=== PATIENT | female | born 1995 | race Caucasian/White ===

== ENCOUNTER → 2016-08-15 | Outpatient (CLI) | payer BC, OTHER ==
[~2016-08-15] MED LIST: ENOXAPARIN 40 MG/0.4 ML SYRINGE SQ ONE; ceFAZolin 3 GM in SODIUM CHLORIDE 0.9% 100 ML IVPB ONE
[2016-08-15 14:40] VITALS: BP 143/86; PULSE 129; RESP 16; TEMP 98.2
--- NOTE | 2016-08-15 16:51 | P.HPBAR ---
Bariatric H&P - History & Physicial H&P Date: 08/15/16 History & Physicial: Visit/CC: Pre-surgical Patient initial contact: Initial weight: 195.186 kg Initial weight in pounds: 430.00 Height: 5 ft 6 in Initial BMI: 69.4 Last weight: Current weight: Current weight in pounds: Current BMI: [place] body weight (based on NIH guidelines): 58.967 kg Excess body weight loss: The patient is a 21 year-old F who presents for Bariatric Assessment. The patient presents for sleeve gastrectomy consultation. Her BMI is 59. She seems to have a good understanding of the sleeve gastrectomy. She is aware the risks benefits of the procedure. Past Medical History Past Medical History: No Reported History Additional Past Medical History / Comment(s): Takes Metformin BID, but states not diabetic. History of Any Multi-Drug Resistant Organisms: None Reported Past Surgical History: Cholecystectomy, Orthopedic Surgery Additional Past Surgical History / Comment(s): rt ankle/foot. Past Anesthesia/Blood Transfusion Reactions: No Reported Reaction Past Psychological History: Anxiety, Bipolar, Depression, Schizophrenia Smoking Status: Current every day smoker Past Alcohol Use History: None Reported Additional Past Alcohol Use History / Comment(s): Patient states down to half ppd. Started smoking at age 15 years of age. Past Drug Use History: None Reported - Past Family History Father Family Medical History: Hypertension Additional Family Medical History / Comment(s): Father is alive at age 57 with history of hypertension. Mother Family Medical History: Hypertension Additional Family Medical History / Comment(s): Mother is alive at age 53 with history of hypertension. Sister(s) Additional Family Medical History / Comment(s): Patient has 3 sisters with no major medical problems. Patient has 1 brother with no major medical problems. She does not have any children. Surgical - Exam Vital Signs Temp Pulse Resp BP 98.2 F 129 H 16 143/86 08/15/16 14:34 08/15/16 14:34 08/15/16 14:34 08/15/16 14:34 - General well developed - Eyes PERRL - ENT normal pinna - Neck no masses - Respiratory normal expansion - Cardiovascular Rhythm: regular - Abdomen Abdomen: soft, non tender Bariatric Assessment & Plan Plan: Morbid obesity with severe deformities. Patient will the authorized for sleeve gastrectomy. Bariatric Checklist Checklist: Plan: Checklist: EGD: 1. Hiatal hernia: 2. H. Pylori: HgbA1c: Vitamin D: Smoking: Current every day smoker Primary care physician referral: DR SPARKS Psychiatry clearance: Cardiology clearance: Sleep study: Diet journal: VTE risk score: VTE risk level: Rehab needs at discharge:
== END | disposition home or self-care (01) ==
LOC: BARWHC3 13:48
PROVIDERS: ATTEND Surgery
DX: Z01.818 Encounter for other preprocedural examination (principal); E66.01 Morbid (severe) obesity due to excess calories; Z79.899 Other long term (current) drug therapy; F17.200 Nicotine dependence, unspecified, uncomplicated; Q89.9 Congenital malformation, unspecified; Z68.43 Body mass index [BMI] 50.0-59.9, adult
CPT/HCPCS: 99211

== ENCOUNTER → 2016-08-22 | Outpatient (CLI) | payer BC, OTHER ==
[2016-08-22 14:50] VITALS: BMI 71.6
== END | disposition home or self-care (01) ==
LOC: BARWHC3 08:45
PROVIDERS: ATTEND Surgery
DX: Z71.3 Dietary counseling and surveillance (principal); E66.01 Morbid (severe) obesity due to excess calories; Z68.45 Body mass index [BMI] 70 or greater, adult

== ENCOUNTER → 2016-09-01 | Outpatient (CLI) | payer BC, OTHER ==
[2016-09-01 16:28] LABS: Basophils % (A) 0 %; CH 25.6; CHCM 31.5; Eosinophils # (A) 0.2 k/uL (0-0.7); Eosinophils % (A) 2 %; HCT 44.6 % (34.0-46.0); HDW 2.81; HGB 14.2 gm/dL (11.4-16.0); Hypochromasia Slight; Luc % (Auto) 2; Lymphocytes # (A) 2.6 k/uL (1.0-4.8); Lymphocytes % (A) 23 %; MCHC 31.9 g/dL (31.0-37.0); MCV 81.6 fL (80.0-100.0); Mean Platelet Volume 6.4; Monocytes # (A) 0.5 k/uL (0-1.0); Monocytes % (A) 4 %; Neutrophils % (A) 69 %; RBC 5.47 m/uL (3.80-5.40); RDW 14.4 % (11.5-15.5); WBC 11.6 k/uL (3.8-10.6)
[2016-09-01 16:53] LABS: ALT 36 U/L (9-52); AST 19 U/L (14-36); Alkaline Phosphatase 90 U/L (38-126); Anion Gap 11 mmol/L; Blood Urea Nitrogen 18 mg/dL (7-17); Calcium 9.6 mg/dL (8.4-10.2); Carbon Dioxide 28 mmol/L (22-30); Chloride 102 mmol/L (98-107); Glucose 95 mg/dL (74-99); Non-African American GFR(MDRD) >60 (>60 ml/min/1.73 sqM); Potassium 4.3 mmol/L (3.5-5.1); Sodium 141 mmol/L (137-145); Total Bilirubin 0.5 mg/dL (0.2-1.3); Total Protein 7.8 g/dL (6.3-8.2)
[2016-09-01 18:44] LABS: Hemoglobin A1C 5.7 % (4.2-6.1)
== END | disposition home or self-care (01) ==
LOC: LABPAT 15:53
PROVIDERS: ATTEND Surgery
DX: Z01.812 Encounter for preprocedural laboratory examination (principal)
CPT/HCPCS: 80053; 83036; 85025

== ENCOUNTER 2016-09-09 05:48 | Inpatient (IN) | payer BC, OTHER ==
[2016-09-09] MEDS ORDERED: MIDAZOLAM 2 MG/2 ML VIAL IV PRN (05:52)
[2016-09-09] MEDS ORDERED: LACTATED RINGERS 1,000 ML IV SCH (05:52)
[2016-09-09] MEDS ORDERED: SCOPOLAMINE 1.5MG/72HR PATCH TRANSDERM ONE (05:52)
[2016-09-09] MEDS ORDERED: ONDANSETRON 4 MG/2 ML VIAL IVP ONE (05:52)
[2016-09-09] MEDS ORDERED: DEXAMETHASONE SOD PHOSPHATE 10 MG/ML 1 ML VIAL IV ONE (05:52)
[2016-09-09] MEDS ORDERED: LIDOCAINE 1% 20 ML VIAL (10MG/ML) FOR IV START INTRADERMA ONE (06:32)
[2016-09-09 06:44] LABS: Glucose,Whole Blood 73 mg/dL (75-99)
[2016-09-09] MEDS ORDERED: ENOXAPARIN 40 MG/0.4 ML SYRINGE SQ STA (06:54)
--- NOTE | 2016-09-09 07:42 | P.GSHP ---
History of Present Illness H&P Date: 09/09/16 Chief Complaint: Morbid obesity This is a 21-year-old female with history of morbid obesity. Patient has had lifetime problems obesity. She presents today for laparoscopic sleeve gastrectomy. Patient's aware the risks of surgery including conversion to the open procedure and injury to the stomach, liver and spleen. She is also a risk of gastric staple line disruption, bleeding and scarring. - Constitutional Constitutional: Reports as per HPI Past Medical History Past Medical History: No Reported History Additional Past Medical History / Comment(s): Takes Metformin for weight loss, states not diabetic. History of Any Multi-Drug Resistant Organisms: None Reported Past Surgical History: Cholecystectomy, Orthopedic Surgery Additional Past Surgical History / Comment(s): rt ankle/foot. Past Anesthesia/Blood Transfusion Reactions: No Reported Reaction Past Psychological History: Anxiety, Bipolar, Depression, Schizophrenia Smoking Status: Former smoker Past Alcohol Use History: None Reported Additional Past Alcohol Use History / Comment(s): quit smoking 08-29-16, Started smoking at age 15 years of age. Past Drug Use History: None Reported - Past Family History Father Family Medical History: Hypertension Additional Family Medical History / Comment(s): Father is alive at age 57 with history of hypertension. Mother Family Medical History: Hypertension Additional Family Medical History / Comment(s): Mother is alive at age 53 with history of hypertension. Sister(s) Additional Family Medical History / Comment(s): Patient has 3 sisters with no major medical problems. Patient has 1 brother with no major medical problems. She does not have any children. Medications and Allergies Home Medications Medication Instructions Recorded Confirmed Type ARIPiprazole [Abilify] 20 mg PO QAM 06/15/16 09/09/16 History Escitalopram [Lexapro] 20 mg PO DAILY 06/15/16 09/09/16 History Medroxyprogesterone Acetate 1 applic SQ Q90D 06/15/16 09/09/16 History [Depo-Provera] hydrOXYzine PAMOATE [Vistaril] 50 mg PO BID 06/20/16 09/09/16 History metFORMIN HCL [Glucophage] 500 mg PO BID 06/20/16 09/09/16 History lamoTRIgine [LaMICtal] 100 mg PO BID 08/16/16 09/09/16 History Melatonin 2 mg PO HS 09/06/16 09/09/16 History lamoTRIgine [LaMICtal] 50 mg PO 1200 09/06/16 09/09/16 History Allergies Allergy/AdvReac Type Severity Reaction Status Date / Time venom-honey bee Allergy Swelling, Verified 09/09/16 06:06 [bee venom (honey bee)] difficulty breathing Surgical - Exam Vital Signs Temp Pulse Resp BP Pulse Ox 97.6 F 121 H 16 131/79 95 09/09/16 06:32 09/09/16 06:32 09/09/16 06:32 09/09/16 06:32 09/09/16 06:32 BMI 69 - General well developed, no distress - Eyes PERRL - ENT normal pinna - Neck no masses - Respiratory normal expansion - Cardiovascular Rhythm: regular - Abdomen Abdomen: soft, non tender Results - Labs Abnormal Lab Results - Last 24 Hours (Table) 09/09/16 Range/Units 06:43 POC Glucose (mg/dL) 73 L (75-99) mg/dL Assessment and Plan Plan: Morbid obesity with BMI 69. We'll perform laparoscopic sleeve gastrectomy.
[2016-09-09] MEDS ORDERED: LIDOCAINE 1% INJ 10MG/ML (20 ML MDV) ONE (07:48)
[2016-09-09] MEDS ORDERED: SUCCINYLCHOLINE CHLORIDE VIAL 200 MG/10 ML VIAL IV ONE (07:48)
[2016-09-09] MEDS ORDERED: HYDROmorphone (PF) 1 MG/ML ONE (07:48)
[2016-09-09] MEDS ORDERED: ROCURONIUM BROMIDE 10 MG/ML 10 ML VIAL IV ONE (07:48)
[2016-09-09] MEDS ORDERED: fentaNYL (PF) 50 MCG/ML 2 ML AMP ONE (07:48)
[2016-09-09] MEDS ORDERED: NEOSTIGMINE 1 MG/ML 10 ML VIAL ONE (07:48)
[2016-09-09] MEDS ORDERED: PROPOFOL 10 MG/ML 20 ML VIAL IV ONE (07:48)
[2016-09-09] MEDS ORDERED: MIDAZOLAM 2 MG/2 ML VIAL ONE (07:48)
[2016-09-09] MEDS ORDERED: GLYCOPYRROLATE 0.2 MG/ML 2 ML VIAL ONE (07:48)
[2016-09-09] MEDS ORDERED: SODIUM CHLORIDE 0.9% 50 ML with ceFAZolin 2,000 MG IV ONE ×2 (08:15)
[2016-09-09] MEDS ORDERED: METHYLENE BLUE IRRIGATION ONE (08:25)
[2016-09-09] MEDS ORDERED: SODIUM CHLORIDE 0.9% IRRIGATION ONE (08:25)
[2016-09-09] MEDS ORDERED: BUPIVACAIN-EPI 0.25%-1:200,000 30 ML VIAL SQ ONE (08:27)
[2016-09-09] MEDS ORDERED: LACTATED RINGERS 1,000 ML IV ONE (09:33)
[2016-09-09] MEDS ORDERED: HYDROmorphone 1 MG/ML 1 ML SYRINGE IVP PRN (09:40)
[2016-09-09] MEDS ORDERED: NALOXONE 0.4 MG/ML 1 ML VIAL IV PRN (09:40)
--- NOTE | 2016-09-09 09:40 | P.OP ---
Date of Procedure: 09/09/16 Preoperative Diagnosis: Morbid obesity BMI 69 Postoperative Diagnosis: A BMI 69 Procedure(s) Performed: Laparoscopic sleeve gastrectomy Anesthesia: STANLEY Surgeon: Hermes Andrade Estimated Blood Loss (ml): 15 Pathology: other (Gastric remnant) Condition: stable Disposition: PACU Description of Procedure: The patient was placed on the operating room table in the supine position. She received general anesthesia and then was placed in dorsal lithotomy position. Her abdomen was prepped and draped in sterile fashion. The skin incision sites were anesthetized 1% local Xylocaine. And then the skin was incised with an 11 blade in the left lateral position. Using a blade less trocar under direct visualization the peritoneal cavity was entered. The abdomen was insufflated and then a 5 mm laparoscope was placed into the peritoneal cavity. A 5 mm trocar was placed in the right epigastric, and right lateral position. A 15 mm trocar was placed in the supra-umbilical position and another 5 mm trocar was placed in the left lateral position. The left lateral lobe of the liver was retracted. The stomach was visualized. The greater curvature of the stomach was then dissected using the Harmonic scissors. The dissection occurred approximately 5 cm from the pylorus to the level of the left erica. There was no hiatal hernia seen. At this point a 40-Kyrgyz bougie dilator was placed the oropharynx and passed into the esophagus and into the stomach by the REWORK OPERATOR. The sleeve gastrectomy was performed by using the powered echelon stapler with a seam guard buttress material. Sequential firings of the stapler were performed. The gastric remnant was then brought out through the 15 mm trocar site. The dilator was withdrawn. And a orogastric tube was replaced into the stomach. The stomach was insufflated with 200 mL of methylene blue normal saline. There was no evidence of extravasation. The abdomen was irrigated there is no bleeding seen. The Reza-Dunia device was used to close the 15 mm trocar with 0 Vicryl. Skin was closed with interrupted 3-0 Monocryl sutures once the trochars withdrawn. Dermabond dressing was applied. Patient was sent to recovery in stable condition.
[2016-09-09] MEDS: HYDROmorphone 1 MG/ML 1 ML SYRINGE IVP PRN ×2 (09:55→10:08)
[2016-09-09 11:04] VITALS: BMI 69.1
[2016-09-09] MEDS: ACETAMINOPHEN IV (For NPO) 1,000 MG in EMPTY BAG 1 BAG IVPB SCH ×3 (11:43→23:30)
[2016-09-09] MEDS: 0.9% NACL WITH KCL 20 MEQ/L 1,000 ML IV SCH ×3 (11:44→23:22)
[2016-09-09] MEDS: AMPICILLIN-SULBACTAM 3 GM in SODIUM CHLORIDE 0.9% 100 ML IVPB SCH ×2 (13:31→18:35)
[2016-09-09] MEDS: KETOROLAC 30 MG/ML 1 ML VIAL IVP SCH ×3 (13:31→23:23)
[2016-09-09] MEDS: ALBUTEROL NEBULIZED 2.5 MG/3 ML INHALATION SCH ×2 (15:55→20:27)
[2016-09-09 16:28] LABS: Glucose,Whole Blood 125 mg/dL (75-99)
[2016-09-09] MEDS: lamoTRIgine 100 MG TAB PO SCH (16:48)
[2016-09-09] MEDS: INSULIN LISPRO (humaLOG) 300 UNIT/3 ML VIAL SQ SCH ×2 (16:48→19:58)
[2016-09-09 19:57] LABS: Glucose,Whole Blood 112 mg/dL (75-99)
--- NOTE | 2016-09-09 20:15 | CONS ---
DATE OF CONSULTATION: REASON FOR CONSULTATION: Postoperative complication management and tachycardia. 21-year-old morbidly obese, admitted for laparoscopic sleeve gastrectomy. Patient denied any fever or chills. Patient denied any nausea or vomiting. Patient denied any abdominal pain and did not pass gas yet. She is postoperative day 0. Patient is mildly tachycardic due to surgery and intravascular volume depletion. Patient is presently on IV fluids for that in the form of normal saline which appropriate. I am awaiting basic metabolic profile that was ordered for tomorrow. REVIEW OF SYSTEMS: CONSTITUTIONAL: No fever, no malaise, no fatigue. HEENT: No recent visual problems or hearing problems. Denied any sore throat. CARDIOVASCULAR: No chest pain, orthopnea, PND, no palpitations, no syncope. PULMONARY: No shortness of breath, no cough, no hemoptysis. GASTROINTESTINAL: No diarrhea, no nausea, no vomiting, no abdominal pain. Normoactive bowel sounds. NEUROLOGICAL: No headaches, no weakness, no numbness. HEMATOLOGICAL: Denies any bleeding or petechiae. GENITOURINARY: Denies any burning micturition, frequency, or urgency. MUSCULOSKELETAL/RHEUMATOLOGICAL: Denies any joint pain, swelling, or any muscle pain. ENDOCRINE: Denies any polyuria or polydipsia. The rest of the 14 point review of systems is negative. PAST MEDICAL HISTORY: Morbid obesity and patient takes metformin for weight loss, cholecystectomy, orthopedic surgery in the past, anxiety and depression. SOCIAL HISTORY: Quit smoking on August 29, 2016. Denied any alcohol abuse or any drug abuse. FAMILY HISTORY: Father had hypertension, mother had hypertension as well and sisters do not have any major medical problems. HOME MEDICATIONS: Omeprazole, ( ), medroxyprogesterone, hydroxyzine, metformin, Lamictal, melatonin. Patient is taking Lamictal for bipolar disorder. ALLERGIES: ALLERGIC TO BEE VENOM. PHYSICAL EXAMINATION: Temperature 97.4, pulse of 117, respiratory rate of 19, blood pressure is 153/84, saturating at 94% on 2-L of O2 nasal cannula. GENERAL: Morbidly obese, alert and oriented x3. HEENT: Pupils are round and equally reacting to light. EOMI. No scleral icterus. No conjunctival pallor. Normocephalic, atraumatic. No pharyngeal erythema. No thyromegaly. CARDIOVASCULAR: S1 and S2 present. No murmurs, rubs, or gallops. PULMONARY: Chest is clear to auscultation, no wheezing or crackles. ABDOMEN: Soft, nontender, nondistended, normoactive bowel sounds. No palpable organomegaly. MUSCULOSKELETAL: No joint swelling or deformity. EXTREMITIES: No cyanosis, clubbing, or pedal edema. NEUROLOGICAL: Gross neurological examination did not reveal any focal deficits. SKIN: No rashes. LABORATORY DATA: None available from today. ASSESSMENT AND PLAN: 1. Status post laparoscopic sleeve gastrectomy postoperative day 0. Plan is to continue supportive care and incentive spirometry. 2. Sinus tachycardia, probably mostly it is her baseline secondary to morbid obesity and can be related to intravascular depletion in which receiving IV fluids and awaiting electrolyte panel as well. 3. Deep venous thrombosis prophylaxis per primary service. 4. Morbid obesity. Counseling was provided and patient will need to be tested for obstructive sleep apnea. 5. Bipolar disorder for which Lamictal can be continued. ( ) can be continued. Patient is on medroxyprogesterone. Patient is on metformin for weight loss. This can be continued as an outpatient. Patient will be on sliding scale insulin, although patient is not a diabetic. Thank you for letting me participate in this patient's care. Will continue to follow the patient on an as-needed basis.
[2016-09-10 01:03] VITALS: RESP 16
[2016-09-10] MEDS: ACETAMINOPHEN IV (For NPO) 1,000 MG in EMPTY BAG 1 BAG IVPB SCH ×4 (05:56→23:03)
[2016-09-10] MEDS: KETOROLAC 30 MG/ML 1 ML VIAL IVP SCH ×4 (05:56→23:02)
[2016-09-10] MEDS: 0.9% NACL WITH KCL 20 MEQ/L 1,000 ML IV SCH ×2 (06:32→08:45)
[2016-09-10 07:45] LABS: Basophils % (A) 0 %; CHCM 31.5; Eosinophils % (A) 0 %; HCT 42.9 % (34.0-46.0); HDW 2.72; HGB 13.1 gm/dL (11.4-16.0); Hypochromasia Slight; Luc # (Auto) 0.25; Luc % (Auto) 2; Lymphocytes # (A) 1.7 k/uL (1.0-4.8); Lymphocytes % (A) 15 %; MCH 25.4 pg (25.0-35.0); MCHC 30.6 g/dL (31.0-37.0); Mean Platelet Volume 6.5; Monocytes # (A) 0.6 k/uL (0-1.0); Monocytes % (A) 5 %; Neutrophils # (A) 8.6 k/uL (1.3-7.7); Neutrophils % (A) 77 %; RBC 5.17 m/uL (3.80-5.40); WBC 11.1 k/uL (3.8-10.6); WBC (Perox) 11.27
[2016-09-10] MEDS: INSULIN LISPRO (humaLOG) 300 UNIT/3 ML VIAL SQ SCH ×4 (08:03→20:11)
[2016-09-10 08:08] LABS: Anion Gap 12 mmol/L; Blood Urea Nitrogen 11 mg/dL (7-17); Carbon Dioxide 20 mmol/L (22-30); Chloride 108 mmol/L (98-107); Magnesium 1.9 mg/dL (1.6-2.3); Non-African American GFR(MDRD) >60 (>60 ml/min/1.73 sqM); Phosphorous 3.6 mg/dL (2.5-4.5); Potassium 4.7 mmol/L (3.5-5.1); Sodium 140 mmol/L (137-145)
[2016-09-10] MEDS: ENOXAPARIN 60 MG/0.6 ML SYRINGE SQ SCH ×2 (08:44→20:12)
[2016-09-10] MEDS: ALBUTEROL NEBULIZED 2.5 MG/3 ML INHALATION SCH ×4 (08:55→18:52)
--- NOTE | 2016-09-10 10:40 | FL ---
EXAMINATION TYPE: FL UGI DATE OF EXAM: 09/10/2016 10:23 AM COMPARISON: NONE HISTORY: Post gastric sleeve TECHNIQUE: A single contrast UGI study is performed. FINDINGS: Contrast passes from the distal esophagus through the gastric sleeve without hesitancy. No extravasation of contrast is evident. No free air is noted during this examination. Overhead radiographs were obtained which are unremarkable. IMPRESSIONS: 1. Normal post gastric sleeve without obstruction or hesitancy. No extravasation.
--- NOTE | 2016-09-10 11:05 | P.PN ---
Progress Note - Text The patient feels well. She has minimal clearance of pain. Her esophagram performed this morning is within normal limits. There is no obstruction or leak. On exam her vital signs are stable. Her abdomen soft. Her incision sites are clean dry and intact. Status post sleeve gastrectomy postoperative day 1. Patient was started on clear liquid diet.
[2016-09-10] MEDS: ESCITALOPRAM 20 MG TAB PO SCH (11:31)
[2016-09-10] MEDS: lamoTRIgine 100 MG TAB PO SCH ×2 (11:32→20:12)
[2016-09-10 14:26] LABS: Hemoglobin A1C 5.6 % (4.2-6.1)
[2016-09-10] MEDS ORDERED: lamoTRIgine 25 MG TAB PO SCH (16:00)
[2016-09-10 20:11] LABS: Glucose,Whole Blood 87 mg/dL (75-99)
[2016-09-11] MEDS: ACETAMINOPHEN IV (For NPO) 1,000 MG in EMPTY BAG 1 BAG IVPB SCH (05:09)
[2016-09-11] MEDS: KETOROLAC 30 MG/ML 1 ML VIAL IVP SCH (05:09)
[2016-09-11 07:55] VITALS: BP 139/88; TEMP 96.7
[2016-09-11] MEDS: INSULIN LISPRO (humaLOG) 300 UNIT/3 ML VIAL SQ SCH ×2 (08:00→12:36)
[2016-09-11] MEDS: ENOXAPARIN 60 MG/0.6 ML SYRINGE SQ SCH (08:01)
[2016-09-11] MEDS: lamoTRIgine 100 MG TAB PO SCH (08:02)
[2016-09-11] MEDS: ESCITALOPRAM 20 MG TAB PO SCH (08:02)
[2016-09-11] MEDS: ALBUTEROL NEBULIZED 2.5 MG/3 ML INHALATION SCH ×2 (08:16→12:27)
[2016-09-11 08:19] VITALS: PULSE 88
[2016-09-11 08:20] LABS: Glucose,Whole Blood 90 mg/dL (75-99)
--- NOTE | 2016-09-11 10:21 | P.DS ---
Providers Date of admission: 09/09/16 05:48 Expected date of discharge: 09/11/16 Attending physician: Hermes Andrade Consults: 09/09/16 09:40 Consult Physician Routine Consulting Provider: Alden Elizalde Consult Reason/Comments: Medical management Do you want consulting provider notified?: Yes Primary care physician: [facility] Hospital Course: This a 21-year-old female who underwent laparoscopic sleeve gastrectomy. Patient did well postoperatively. Please see chart for details. Procedures: Laparoscopic sleeve gastrectomy Patient Condition at Discharge: Good Plan - Discharge Summary New Discharge Prescriptions: HYDROcodone/APAP 7.5-325MG [[place] 7.5] 1 each PO Q4H PRN #60 tab PRN Reason: Pain Omeprazole 40 mg PO DAILY #30 capsule.dr MUNOZ Discharge Medication List ARIPiprazole [Abilify] 20 mg PO QAM 06/15/16 [History] Medroxyprogesterone Acetate [Depo-Provera] 150 mg SQ Q90D 06/15/16 [History] hydrOXYzine PAMOATE [Vistaril] 50 mg PO BID 06/20/16 [History] metFORMIN HCL [Glucophage] 500 mg PO BID 06/20/16 [History] lamoTRIgine [LaMICtal] 100 mg PO BID 08/16/16 [History] Melatonin 2 mg PO HS 09/06/16 [History] Escitalopram Oxalate [Escitalopram Oxalate] 20 mg PO DAILY 09/09/16 [History] lamoTRIgine [LaMICtal] 50 mg PO DAILY@1600 09/09/16 [History] HYDROcodone/APAP 7.5-325MG [[place] 7.5] 1 each PO Q4H PRN #60 tab 09/11/16 [Rx] Omeprazole 40 mg PO DAILY #[address] capsule[address] MUNOZ 09/11/16 [Rx] Follow up Appointment(s)/Referral(s): [facility] [[facility]] - 1 Week
[2016-09-11] MEDS ORDERED: ACETAMINOPHEN TAB 500 MG TAB PO SCH (12:00)
[2016-09-11 12:08] LABS: Glucose,Whole Blood 74 mg/dL (75-99)
== END 2016-09-11 14:40 | disposition home or self-care (01) | DRG 621 ==
LOC: 2ORWHC 05:48 → 3SUR 09:38
PROVIDERS: ADMIT Surgery; ATTEND Surgery
PROC: 0DB64Z3 Excision of Stomach, Percutaneous Endoscopic Approach, Vertical (ICD-10-PCS; principal; 2016-09-09 07:40)
DX: E66.01 Morbid (severe) obesity due to excess calories (principal); F20.9 Schizophrenia, unspecified; E86.9 Volume depletion, unspecified; F31.9 Bipolar disorder, unspecified; R00.0 Tachycardia, unspecified; F41.9 Anxiety disorder, unspecified; Z82.49 Family history of ischemic heart disease and other diseases of the circulatory system; Z68.44 Body mass index [BMI] 60.0-69.9, adult; Z87.891 Personal history of nicotine dependence; Z91.030 Bee allergy status; Z71.3 Dietary counseling and surveillance; Z90.49 Acquired absence of other specified parts of digestive tract; Z79.84 Long term (current) use of oral hypoglycemic drugs; Z79.3 Long term (current) use of hormonal contraceptives; Z79.899 Other long term (current) drug therapy
CPT/HCPCS: 74240; 80051; 81025; 82310; 82565; 83036; 83735; 84100; 84520; 85025; 88307; 94640; 94762

== ENCOUNTER → 2016-09-19 | Outpatient (CLI) | payer BC, OTHER ==
[2016-09-19 14:36] VITALS: BP 141/98; PULSE 99; RESP 14; TEMP 97.9; BMI 67.6
--- NOTE | 2016-09-19 16:31 | P.HPBAR ---
Bariatric H&P - History & Physicial H&P Date: 09/19/16 History & Physicial: Visit/CC: sleeve f/u (09/09/16) Patient initial contact: Initial weight: 195.186 kg Initial weight in pounds: 430.31 Height: 5 ft 6 in Initial BMI: 69.4 Last weight: Current weight: 190.191 kg Current weight in pounds: 419.30 Current BMI: 67.6 [place] body weight (based on NIH guidelines): 58.967 kg Excess body weight loss: 3.6% The patient is a 21 year-old F who presents for Bariatric Assessment. Patient presents for sleeve gastrectomy fall. She is doing quite well. She has no real complaints. She's had some GERD. Past Medical History Past Medical History: No Reported History Additional Past Medical History / Comment(s): Takes Metformin for weight loss, states not diabetic. History of Any Multi-Drug Resistant Organisms: None Reported Past Surgical History: Bariatric Surgery, Cholecystectomy, Orthopedic Surgery Additional Past Surgical History / Comment(s): rt ankle/foot, gastric sleeve on 09/09/16 Past Anesthesia/Blood Transfusion Reactions: No Reported Reaction Past Psychological History: Anxiety, Bipolar, Depression, Schizophrenia Smoking Status: Former smoker Past Alcohol Use History: None Reported Additional Past Alcohol Use History / Comment(s): quit smoking 08-29-16, Started smoking at age 15 years of age. Past Drug Use History: None Reported - Past Family History Father Family Medical History: Hypertension Additional Family Medical History / Comment(s): Father is alive at age 57 with history of hypertension. Mother Family Medical History: Hypertension Additional Family Medical History / Comment(s): Mother is alive at age 53 with history of hypertension. Sister(s) Additional Family Medical History / Comment(s): Patient has 3 sisters with no major medical problems. Patient has 1 brother with no major medical problems. She does not have any children. Surgical - Exam Vital Signs Temp Pulse Resp BP 97.9 F 99 14 141/98 09/19/16 14:27 09/19/16 14:27 09/19/16 14:27 09/19/16 14:27 - General well developed, no distress - Eyes PERRL - ENT normal pinna - Neck no masses - Respiratory normal expansion - Cardiovascular Rhythm: regular - Abdomen Abdomen: soft, non tender Bariatric Assessment & Plan Plan: Status post sleeve gastrectomy. Patient is minimal GERD symptoms. She'll follow-up in 2 weeks. Bariatric Checklist Checklist: Plan: Checklist: EGD: 1. Hiatal hernia: 2. H. Pylori: HgbA1c: Vitamin D: Smoking: Former smoker Primary care physician referral: DR SPARKS Psychiatry clearance: Cardiology clearance: Sleep study: Diet journal: VTE risk score: VTE risk level: Rehab needs at discharge:
== END | disposition home or self-care (01) ==
LOC: BARWHC3 13:14
PROVIDERS: ATTEND Surgery
DX: Z48.815 Encounter for surgical aftercare following surgery on the digestive system (principal); K21.9 Gastro-esophageal reflux disease without esophagitis; Z98.84 Bariatric surgery status; Z68.44 Body mass index [BMI] 60.0-69.9, adult; Z87.891 Personal history of nicotine dependence
CPT/HCPCS: 99211

== ENCOUNTER → 2016-09-27 | Outpatient (CLI) | payer BC, OTHER ==
--- NOTE | 2016-09-27 17:20 | CT ---
EXAMINATION TYPE: CT abdomen pelvis w con DATE OF EXAM: 09/27/2016 5:06 PM COMPARISON: 06/07/2014 HISTORY: Left sided abdominal pain x 2-[address] DLP: 4103.50 mGycm Automated exposure control for dose reduction was used. TECHNIQUE: Helical acquisition of images was performed from the lung bases through the pelvis. CONTRAST: Performed with Oral Contrast and with IV Contrast, patient injected with 100 mL of Omnipaque 300. FINDINGS: Lung bases are clear. There is no pleural effusion. Heart size is normal. Liver spleen pancreas appear normal. There are clips from cholecystectomy. Bile ducts are not dilated . There is no adrenal mass. Kidneys show satisfactory contrast opacification. There is no hydronephro sis. There is no retroperitoneal adenopathy. There is no ascites. Appendix appears normal. Bladder di stends smoothly. There is no sign of a pelvic mass. I see no bony destructive process. Exam is limite d by the patient size. I see no intestinal wall thickening. There are no dilated loops. There is line ar density around the stomach consistent with previous bariatric surgery. IMPRESSION: THERE IS GASTRIC SURGERY SINCE THE LAST CT SCAN OF 06/07/2014. NO SIGN OF ACUTE ABDOMEN AND PELVIS. N ORMAL APPENDIX. I DO NOT SEE A CAUSE FOR LEFT-SIDED ABDOMINAL PAIN.
== END ==
LOC: RADCTMAIN 16:23
PROVIDERS: ATTEND Surgery
DX: R10.11 Right upper quadrant pain (principal); K95.89 Other complications of other bariatric procedure
CPT/HCPCS: 74177; Q9967; 96360

== ENCOUNTER → 2016-09-27 | Outpatient (CLI) | payer BC, OTHER ==
[~2016-09-27] MED LIST changes: -ENOXAPARIN 40 MG/0.4 ML SYRINGE SQ ONE; +SODIUM CHLORIDE 0.9% 1,000 ML IV NR; +SODIUM CHLORIDE 0.9% 250 ML in EMPTY BAG 1 BAG IV PRN; +SODIUM CHLORIDE 0.9% 500 ML in EMPTY BAG 1 BAG IV PRN; -ceFAZolin 3 GM in SODIUM CHLORIDE 0.9% 100 ML IVPB ONE
[2016-09-27 15:06] VITALS: BP 130/85; PULSE 98; RESP 18; TEMP 98.1
[2016-09-27 15:14] LABS: Basophils # (A) 0.1 k/uL (0-0.2); Basophils % (A) 1 %; CH 25.9; CHCM 31.4; Eosinophils # (A) 0.3 k/uL (0-0.7); Eosinophils % (A) 3 %; HCT 47.9 % (34.0-46.0); HDW 2.74; HGB 15.1 gm/dL (11.4-16.0); Hypochromasia Slight; Luc % (Auto) 3; Lymphocytes # (A) 2.5 k/uL (1.0-4.8); Lymphocytes % (A) 32 %; MCH 26.2 pg (25.0-35.0); MCHC 31.5 g/dL (31.0-37.0); Mean Platelet Volume 6.7; Monocytes # (A) 0.4 k/uL (0-1.0); Monocytes % (A) 5 %; Neutrophils # (A) 4.4 k/uL (1.3-7.7); Neutrophils % (A) 56 %; RBC 5.76 m/uL (3.80-5.40); RDW 15.6 % (11.5-15.5); WBC 7.8 k/uL (3.8-10.6); WBC (Perox) 7.89
[2016-09-27 15:21] LABS: ALT 96 U/L (9-52); AST 49 U/L (14-36); Alkaline Phosphatase 87 U/L (38-126); Anion Gap 12 mmol/L; Blood Urea Nitrogen 7 mg/dL (7-17); Calcium 9.5 mg/dL (8.4-10.2); Carbon Dioxide 26 mmol/L (22-30); Chloride 105 mmol/L (98-107); Glucose 91 mg/dL (74-99); Non-African American GFR(MDRD) >60 (>60 ml/min/1.73 sqM); Potassium 4.4 mmol/L (3.5-5.1); Sodium 143 mmol/L (137-145); Total Bilirubin 0.5 mg/dL (0.2-1.3); Total Protein 7.6 g/dL (6.3-8.2)
== END | disposition home or self-care (01) ==
LOC: PROCWHC3 14:51
PROVIDERS: ATTEND Surgery
DX: Z48.815 Encounter for surgical aftercare following surgery on the digestive system (principal); E86.0 Dehydration; E66.01 Morbid (severe) obesity due to excess calories; Z98.84 Bariatric surgery status
CPT/HCPCS: 36415; 80053; 85025; 96360

== ENCOUNTER → 2016-10-03 | Outpatient (CLI) | payer BC, OTHER ==
[2016-10-03 13:43] VITALS: BP 161/90; PULSE 113; RESP 16; TEMP 98.3; BMI 65.8
--- NOTE | 2016-10-03 13:47 | P.HPBAR ---
Bariatric H&P - History & Physicial H&P Date: 10/03/16 History & Physicial: Visit/CC: sleeve follow-up Patient initial contact: Initial weight: 195.186 kg Initial weight in pounds: 430.31 Height: 5 ft 6 in Initial BMI: 69.4 Last weight: Current weight: 185.066 kg Current weight in pounds: 408.00 Current BMI: 65.8 [place] body weight (based on NIH guidelines): 58.967 kg Excess body weight loss: 7.4% The patient is a 21 year-old F who presents for Bariatric Assessment. Patient presents today for gastric sleeve follow-up. She has lost presents 11 pounds since her last visit. She's had some minimal GERD symptoms. Review of Systems Constitutional: Reports as per HPI Past Medical History Past Medical History: No Reported History Additional Past Medical History / Comment(s): Takes Metformin for weight loss, states not diabetic. History of Any Multi-Drug Resistant Organisms: None Reported Past Surgical History: Bariatric Surgery, Cholecystectomy, Orthopedic Surgery Additional Past Surgical History / Comment(s): rt ankle/foot, gastric sleeve on 09/09/16 Past Anesthesia/Blood Transfusion Reactions: No Reported Reaction Past Psychological History: Anxiety, Bipolar, Depression, Schizophrenia Smoking Status: Never smoker Past Alcohol Use History: None Reported Additional Past Alcohol Use History / Comment(s): quit smoking 08-29-16, Started smoking at age 15 years of age. Past Drug Use History: None Reported - Past Family History Father Family Medical History: Hypertension Additional Family Medical History / Comment(s): Father is alive at age 57 with history of hypertension. Mother Family Medical History: Hypertension Additional Family Medical History / Comment(s): Mother is alive at age 53 with history of hypertension. Sister(s) Additional Family Medical History / Comment(s): Patient has 3 sisters with no major medical problems. Patient has 1 brother with no major medical problems. She does not have any children. Surgical - Exam Vital Signs Temp Pulse Resp BP 98.3 F 113 H 16 161/90 10/03/16 13:34 10/03/16 13:34 10/03/16 13:34 10/03/16 13:34 - General well developed, no distress - Eyes PERRL - Abdomen Abdomen: soft, non tender Bariatric Assessment & Plan Plan: Status post sleeve gastrectomy. Patient has had good weight loss. She will follow up 1 month. Her GERD symptoms observed. She is currently being treated with Prilosec. Bariatric Checklist Checklist: Plan: Checklist: EGD: 1. Hiatal hernia: 2. H. Pylori: HgbA1c: Vitamin D: Smoking: Never smoker Primary care physician referral: Devin Psychiatry clearance: Cardiology clearance: Sleep study: Diet journal: VTE risk score: VTE risk level: Rehab needs at discharge:
== END | disposition home or self-care (01) ==
LOC: BARWHC3 13:03
PROVIDERS: ATTEND Surgery
DX: Z48.815 Encounter for surgical aftercare following surgery on the digestive system (principal); Z71.3 Dietary counseling and surveillance; K21.9 Gastro-esophageal reflux disease without esophagitis; Z98.84 Bariatric surgery status; Z68.44 Body mass index [BMI] 60.0-69.9, adult; Z79.899 Other long term (current) drug therapy
CPT/HCPCS: 99211

== ENCOUNTER 2016-10-11 17:56 | Emergency (ER) | payer BC, OTHER ==
[2016-10-11] MEDS ORDERED: MORPHINE SULFATE 4 MG/ML SYRINGE IVP STA ×2 (19:55→21:21)
[2016-10-11] MEDS ORDERED: KETOROLAC 30 MG/ML 1 ML VIAL IVP STA (19:55)
[2016-10-11] MEDS ORDERED: SODIUM CHLORIDE 0.9% 1,000 ML IV ONE (19:55)
[2016-10-11 20:20] LABS: Appearance,Urine Cloudy (Clear); Bacteria,Urine Occasional /hpf; Bilirubin,Urine Negative (Negative); Glucose,Urine (UA) Negative (Negative); Ketones,Urine 1+ (Negative); Leukocyte Esterase,Urine Small (Negative); Mucus,Urine Many /hpf; Nitrite,Urine Negative (Negative); PH, Urine 6.5 (5.0-8.0); Particle Count 10161; Protein,Urine Trace (Negative); RBC,Urine 2 /hpf (0-5); Specific Gravity,Urine 1.024 (1.001-1.035); Squamous Epithelial Cell,Urine 5 /hpf (0-4); UA Billing (MACRO vs. MICRO) MICRO; WBC,Urine 5 /hpf (0-5)
[2016-10-11 20:22] LABS: Anisocytosis Slight; Basophils # (A) 0.1 k/uL (0-0.2); Basophils % (A) 1 %; CH 26.4; CHCM 32.6; Eosinophils # (A) 0.2 k/uL (0-0.7); Eosinophils % (A) 3 %; HCT 46.5 % (34.0-46.0); HDW 2.64; HGB 15.3 gm/dL (11.4-16.0); Luc # (Auto) 0.14; Luc % (Auto) 2; Lymphocytes # (A) 2.8 k/uL (1.0-4.8); Lymphocytes % (A) 37 %; MCH 26.8 pg (25.0-35.0); MCHC 32.9 g/dL (31.0-37.0); MCV 81.4 fL (80.0-100.0); Mean Platelet Volume 7.3; Monocytes # (A) 0.3 k/uL (0-1.0); Monocytes % (A) 4 %; Neutrophils % (A) 53 %; RBC 5.71 m/uL (3.80-5.40); RDW 16.3 % (11.5-15.5); WBC 7.5 k/uL (3.8-10.6); WBC (Perox) 7.16
--- NOTE | 2016-10-11 21:04 | CT ---
EXAMINATION TYPE: CT abdomen pelvis wo con DATE OF EXAM: 10/11/2016 8:47 PM COMPARISON: 09/27/2016 HISTORY: Right sided pain CT DLP: 3096.3 mGycm Automated exposure control for dose reduction was used. TECHNIQUE: Helical acquisition of images was performed from the lung bases through the pelvis. FINDINGS: Lung bases are clear. There is no pleural effusion. Liver spleen pancreas appear normal. There are clips from cholecystectomy. Bile ducts are not dilated . There is no adrenal mass. Kidneys have normal size and contour. There is no hydronephrosis. There i s no retroperitoneal adenopathy. Appendix appears normal. I see no intestinal wall thickening. There are no dilated loops. There is no sign of a pelvic mass. Bladder is almost empty. I see no bony destructive process. IMPRESSION: PREVIOUS GASTRIC SURGERY. NO SIGN OF ACUTE ABDOMEN AND PELVIS. NO ADVERSE CHANGE COMPARED TO LAST EXA M.
[2016-10-11 21:21] VITALS: RESP 18
--- NOTE | 2016-10-11 22:09 | US ---
EXAMINATION TYPE: US transvaginal DATE OF EXAM: 10/11/2016 9:52 PM COMPARISON: CT in PACS CLINICAL HISTORY: Right side Pain. Patient currently on the depo shot. Extremely difficult and limite d exam due to patient body habitus- obese TECHNIQUE: Transvaginal (TV) and Transabdominal (TA) Date of LMP: Unknown EXAM MEASUREMENTS: Uterus: 4.9 x 2.3 x 3.6 cm Endometrial Stripe: 0.3 cm Right Ovary: Not visualized on this exam Left Ovary: Not visualized on this exam 1. Uterus: wnl 2. Endometrium: wnl 3. Right Ovary: Not visualized on this exam 4. Left Ovary: Not visualized on this exam 5. Bilateral Adnexa: wnl 6. Posterior cul-de-sac: Tiny amount of free fluid visualized IMPRESSION: There is a tiny amount of free fluid in the cul-de-sac that is probably physiologic. Othe rwise negative exam.
[2016-10-11 22:16] VITALS: BP 138/67; PULSE 88; TEMP 98.3
--- NOTE | 2016-10-11 22:16 | ED ---
General Adult HPI - General Chief complaint: Abdominal Pain Stated complaint: right side/abd pain, back pain Source: patient Mode of arrival: ambulatory Limitations: no limitations - History of Present Illness Initial comments: 21-year-old female with a past medical history of gastric sleeve procedure about one month ago presented for evaluation of right flank pain. She describes it as sharp pain that started 3-4 days ago and is progressively worsening. She denies any associated nausea and vomiting, dysuria, diarrhea constipation. She was recently seen for abdominal pain and had a negative CT of her abdomen. She has no history of kidney stones or ovarian cysts/torsion. - Related Data Home Medications Medication Instructions Recorded Confirmed ARIPiprazole [Abilify] 20 mg PO QAM 06/15/16 10/11/16 Medroxyprogesterone Acetate 150 mg SQ Q90D 06/15/16 10/11/16 [Depo-Provera] hydrOXYzine PAMOATE [Vistaril] 50 mg PO TID 06/20/16 10/11/16 lamoTRIgine [LaMICtal] 100 mg PO BID@0900,2100 08/16/16 10/11/16 Melatonin 2 mg PO HS 09/06/16 10/11/16 Escitalopram Oxalate 20 mg PO DAILY 09/09/16 10/11/16 lamoTRIgine [LaMICtal] 50 mg PO DAILY@1600 09/09/16 10/11/16 chlorproMAZINE [Thorazine] 100 mg PO HS 10/11/16 10/11/16 Previous Rx's Medication Instructions Recorded HYDROcodone/APAP 5-325MG [[place] 1 - 2 tab PO Q6HR PRN #14 tab 10/11/16 5-325] Ibuprofen [Motrin] 800 mg PO Q8HR PRN #20 tab 10/11/16 Allergies Allergy/AdvReac Type Severity Reaction Status Date / Time venom-honey bee Allergy Swelling, Verified 10/11/16 19:32 [bee venom (honey bee)] difficulty breathing Review of Systems ROS Statement: Those systems with pertinent positive or pertinent negative responses have been documented in the HPI. ROS Other: All systems not noted in ROS Statement are negative. Constitutional: Denies: fever, chills, weakness, weight change Eyes: Denies: eye pain, eye discharge, vision change ENT: Denies: ear pain, throat pain Respiratory: Denies: cough, dyspnea, wheezes, hemoptysis Cardiovascular: Denies: chest pain, palpitations, dyspnea on exertion, orthopnea Endocrine: Denies: fatigue, polydipsia, polyuria Gastrointestinal: Denies: abdominal pain, nausea, vomiting, diarrhea, constipation, hematemesis Genitourinary: Reports: other (Right flank pain with radiation around to her right lower quadrant.). Denies: urgency, dysuria, frequency, hematuria, discharge Musculoskeletal: Denies: back pain, arthralgia Skin: Denies: rash, lesions Neurological: Denies: headache, weakness Psychiatric: Denies: anxiety, depression Hematological/Lymphatic: Denies: easy bleeding, easy bruising Past Medical History Past Medical History: No Reported History Additional Past Medical History / Comment(s): Takes Metformin for weight loss, states not diabetic. History of Any Multi-Drug Resistant Organisms: None Reported Past Surgical History: Bariatric Surgery, Cholecystectomy, Orthopedic Surgery Additional Past Surgical History / Comment(s): rt ankle/foot, gastric sleeve on 09/09/16 Past Anesthesia/Blood Transfusion Reactions: No Reported Reaction Past Psychological History: Anxiety, Bipolar, Depression, Schizophrenia Smoking Status: Current some day smoker Past Alcohol Use History: None Reported Additional Past Alcohol Use History / Comment(s): quit smoking 08-29-16, Started smoking at age 15 years of age. Past Drug Use History: None Reported - Past Family History Father Family Medical History: Hypertension Additional Family Medical History / Comment(s): Father is alive at age 57 with history of hypertension. Mother Family Medical History: Hypertension Additional Family Medical History / Comment(s): Mother is alive at age 53 with history of hypertension. Sister(s) Additional Family Medical History / Comment(s): Patient has 3 sisters with no major medical problems. Patient has 1 brother with no major medical problems. She does not have any children. General Exam Limitations: no limitations General appearance: alert, in no apparent distress Head exam: Present: atraumatic, normocephalic, normal inspection Eye exam: Present: normal appearance, PERRL, EOMI. Absent: scleral icterus, conjunctival injection, periorbital swelling ENT exam: Present: normal exam, mucous membranes moist Neck exam: Present: normal inspection. Absent: tenderness, meningismus, lymphadenopathy Respiratory exam: Present: normal lung sounds bilaterally. Absent: respiratory distress, wheezes, rales, rhonchi, stridor Cardiovascular Exam: Present: regular rate, normal rhythm, normal heart sounds. Absent: systolic murmur, diastolic murmur, rubs, gallop, clicks GI/Abdominal exam: Present: soft, tenderness (Right lower quadrant), normal bowel sounds. Absent: distended, guarding, rebound, rigid Rectal exam: Present: deferred Extremities exam: Present: normal inspection, full ROM, normal capillary refill. Absent: tenderness, pedal edema, joint swelling, calf tenderness Back exam: Present: full ROM, CVA tenderness (R). Absent: CVA tenderness (L), muscle spasm Neurological exam: Present: alert, oriented X3, CN II-XII intact Psychiatric exam: Present: normal affect, normal mood Skin exam: Present: warm, dry, intact, normal color. Absent: rash Course Vital Signs 10/11/16 10/11/16 10/11/16 18:34 20:46 21:18 Temperature 98.0 F 98.6 F Pulse Rate 111 H 100 89 Respiratory 18 20 18 Rate Blood Pressure 146/86 131/66 116/74 O2 Sat by Pulse 97 95 97 Oximetry 10/11/16 22:13 Temperature 98.3 F Pulse Rate 88 Respiratory 18 Rate Blood Pressure 138/67 O2 Sat by Pulse 96 Oximetry Medical Decision Making - Medical Decision Making 21-year-old female presented for evaluation of right flank pain that started 3-4 days ago described as sharp. Ago examination the pain is reproducible at the right CVA radiation around into her right lower quadrant. She denies any associated dysuria or vaginal discharge/bleeding. Labs revealed no significant maladies and CT abdomen showed no acute abnormalities. Given the absence of any significant findings on CT and ultrasound was obtained which further did not reveal any significant abnormalities. There was a small amount of fluid noted in the posterior cul-de-sac which could represent an ovarian cyst that has ruptured. However, the ovaries were unable to be visualized and unable to rule out ovarian torsion. Patient was revaluated and required another dose of pain medication but was overall feeling much better. She is informed of these results and through shared decision making it was determined that she should be discharged with instructions to follow-up with her primary care physician but to return to this facility if her symptoms should worsen or persist. Patient and her mother acknowledged an understanding of this information and agreed with this plan of care. - Lab Data Result diagrams: 10/11/16 20:06 Lab Results 10/11/16 10/11/16 10/11/16 Range/Units 20:06 20:06 20:06 WBC 7.5 (3.8-10.6) k/uL RBC 5.71 H (3.80-5.40) m/uL Hgb 15.3 (11.4-16.0) gm/dL Hct 46.5 H (34.0-46.0) % MCV 81.4 (80.0-100.0) fL MCH 26.8 (25.0-35.0) pg MCHC 32.9 (31.0-37.0) g/dL RDW 16.3 H (11.5-15.5) % Plt Count 291 (150-450) k/uL Neutrophils % 53 % Lymphocytes % 37 % Monocytes % 4 % Eosinophils % 3 % Basophils % 1 % Neutrophils # 4.0 (1.3-7.7) k/uL Lymphocytes # 2.8 (1.0-4.8) k/uL Monocytes # 0.3 (0-1.0) k/uL Eosinophils # 0.2 (0-0.7) k/uL Basophils # 0.1 (0-0.2) k/uL Anisocytosis Slight CK-MB (CK-2) <0.2 (0.0-2.4) ng/mL Lipase 111 (23-300) U/L Urine Color Urine Appearance (Clear) Urine pH (5.0-8.0) Ur Specific [place] (1.001-1.035) Urine Protein (Negative) Urine Glucose (UA) (Negative) Urine Ketones (Negative) Urine Blood (Negative) Urine Nitrite (Negative) Urine Bilirubin (Negative) Urine Urobilinogen (<2.0) mg/dL Ur Leukocyte Esterase (Negative) Urine RBC (0-5) /hpf Urine WBC (0-5) /hpf Ur Squamous Epith Cells (0-4) /hpf Urine Bacteria (None) /hpf Hyaline Casts (0-2) /lpf Urine Mucus (None) /hpf 10/11/16 Range/Units 20:06 WBC (3.8-10.6) k/uL RBC (3.80-5.40) m/uL Hgb (11.4-16.0) gm/dL Hct (34.0-46.0) % MCV (80.0-100.0) fL MCH (25.0-35.0) pg MCHC (31.0-37.0) g/dL RDW (11.5-15.5) % Plt Count (150-450) k/uL Neutrophils % % Lymphocytes % % Monocytes % % Eosinophils % % Basophils % % Neutrophils # (1.3-7.7) k/uL Lymphocytes # (1.0-4.8) k/uL Monocytes # (0-1.0) k/uL Eosinophils # (0-0.7) k/uL Basophils # (0-0.2) k/uL Anisocytosis CK-MB (CK-2) (0.0-2.4) ng/mL Lipase (23-300) U/L Urine Color Yellow Urine Appearance Cloudy H (Clear) Urine pH 6.5 (5.0-8.0) Ur Specific [place] 1.024 (1.001-1.035) Urine Protein Trace H (Negative) Urine Glucose (UA) Negative (Negative) Urine Ketones 1+ H (Negative) Urine Blood Trace H (Negative) Urine Nitrite Negative (Negative) Urine Bilirubin Negative (Negative) Urine Urobilinogen 2.0 (<2.0) mg/dL Ur Leukocyte Esterase Small H (Negative) Urine RBC 2 (0-5) /hpf Urine WBC 5 (0-5) /hpf Ur Squamous Epith Cells 5 H (0-4) /hpf Urine Bacteria Occasional H (None) /hpf Hyaline Casts 3 H (0-2) /lpf Urine Mucus Many H (None) /hpf Disposition Clinical Impression: Flank pain Disposition: HOME SELF-CARE Condition: Stable Instructions: Abdominal Pain (ED) Additional Instructions: Please use medication as discussed. Please follow up with family doctor if symptoms have not improved over the next two days. Please return to the emergency room if your symptoms increase or worsen or for any other concerns. Prescriptions: HYDROcodone/APAP 5-325MG [[place] 5-325] 1 - 2 tab PO Q6HR PRN #14 tab PRN Reason: Analgesia Ibuprofen [Motrin] 800 mg PO Q8HR PRN #20 tab PRN Reason: Analgesia Referrals: Antione Kaur DO [Primary Care Provider] - 1-2 days Time of Disposition: 22:17 Decision to Admit Reason: Admit from EC Decision Date: 10/11/16 Decision Time: 22:17
== END 2016-10-11 22:27 | disposition home or self-care (01) ==
LOC: EC 17:56
DX: R10.31 Right lower quadrant pain (principal); F20.9 Schizophrenia, unspecified; F31.9 Bipolar disorder, unspecified; F41.9 Anxiety disorder, unspecified; F17.200 Nicotine dependence, unspecified, uncomplicated; Z79.899 Other long term (current) drug therapy; Z91.030 Bee allergy status; Z90.49 Acquired absence of other specified parts of digestive tract; Z98.84 Bariatric surgery status
CPT/HCPCS: 36415; 82553; 83690; 85025; 81001; 76830; 74176; 99284; 96374; 96375; 96376; 96361 ×2; J2270; J1885

== ENCOUNTER → 2016-11-07 | Outpatient (CLI) | payer BC, OTHER ==
[2016-11-07 13:46] VITALS: BP 127/62; PULSE 92; RESP 16; TEMP 98; BMI 63.4
--- NOTE | 2016-11-07 15:57 | P.HPBAR ---
Bariatric H&P - History & Physicial H&P Date: 11/07/16 History & Physicial: Visit/CC: Sleeve follow-up Patient initial contact: Initial weight: 195.186 kg Initial weight in pounds: 430.31 Height: 5 ft 6 in Initial BMI: 69.4 Last weight: Current weight: 178.262 kg Current weight in pounds: 393.00 Current BMI: 63.4 [place] body weight (based on NIH guidelines): 58.967 kg Excess body weight loss: 12.4% The patient is a 21 year-old F who presents for Bariatric Assessment. Patient presents today for sleeve gastrectomy follow-up. She is doing quite well. She' s had good weight loss. She's had minimal GERD symptoms. Past Medical History Past Medical History: No Reported History Additional Past Medical History / Comment(s): Takes Metformin for weight loss, states not diabetic. History of Any Multi-Drug Resistant Organisms: None Reported Past Surgical History: Bariatric Surgery, Cholecystectomy, Orthopedic Surgery Additional Past Surgical History / Comment(s): rt ankle/foot, gastric sleeve on 09/09/16 Past Anesthesia/Blood Transfusion Reactions: No Reported Reaction Past Psychological History: Anxiety, Bipolar, Depression, Schizophrenia Smoking Status: Current some day smoker Past Alcohol Use History: None Reported Additional Past Alcohol Use History / Comment(s): quit smoking 08-29-16, Started smoking at age 15 years of age. Past Drug Use History: None Reported - Past Family History Father Family Medical History: Hypertension Additional Family Medical History / Comment(s): Father is alive at age 57 with history of hypertension. Mother Family Medical History: Hypertension Additional Family Medical History / Comment(s): Mother is alive at age 53 with history of hypertension. Sister(s) Additional Family Medical History / Comment(s): Patient has 3 sisters with no major medical problems. Patient has 1 brother with no major medical problems. She does not have any children. Surgical - Exam Vital Signs Temp Pulse Resp BP 98.0 F 92 16 127/62 11/07/16 13:41 11/07/16 13:41 11/07/16 13:41 11/07/16 13:41 - General well developed, no distress - Eyes PERRL - ENT normal pinna - Neck no masses - Respiratory normal expansion - Cardiovascular Rhythm: regular - Abdomen Abdomen: soft, non tender Bariatric Assessment & Plan Plan: Status post sleeve gastrectomy. Patient is doing quite well and she is an excellent weight loss. Her GERD symptoms are managed with omeprazole. She'll follow-up in one month. Bariatric Checklist Checklist: Plan: Checklist: EGD: 1. Hiatal hernia: 2. H. Pylori: HgbA1c: Vitamin D: Smoking: Current some day smoker Primary care physician referral: Devin Psychiatry clearance: Cardiology clearance: Sleep study: Diet journal: VTE risk score: VTE risk level: Rehab needs at discharge:
== END | disposition home or self-care (01) ==
LOC: BARWHC3 13:19
PROVIDERS: ATTEND Surgery
DX: K21.9 Gastro-esophageal reflux disease without esophagitis (principal); Z98.84 Bariatric surgery status
CPT/HCPCS: 99211

== ENCOUNTER → 2016-12-12 | Outpatient (CLI) | payer BC, OTHER ==
[2016-12-12 13:43] VITALS: BP 144/88; PULSE 81; TEMP 98; BMI 60.7
--- NOTE | 2016-12-12 13:56 | P.HPBAR ---
Bariatric H&P - History & Physicial H&P Date: 12/12/16 History & Physicial: Visit/CC: follow up visit Patient initial contact: Initial weight: 195.186 kg Initial weight in pounds: 430.31 Height: 5 ft 6 in Initial BMI: 69.4 Last weight: Current weight: 170.551 kg Current weight in pounds: 376.00 Current BMI: 60.7 [place] body weight (based on NIH guidelines): 58.967 kg Excess body weight loss: 18.0% The patient is a 21 year-old F who presents for Bariatric Assessment. Patient presents for sleeve gastrectomy follow-up. She is doing quite well. She's loss approximately 55 pounds since surgery. She is approximately 3 months postoperative. She's had some mild GERD and arthritis symptoms. Past Medical History Past Medical History: No Reported History Additional Past Medical History / Comment(s): Takes Metformin for weight loss, states not diabetic. History of Any Multi-Drug Resistant Organisms: None Reported Past Surgical History: Bariatric Surgery, Cholecystectomy, Orthopedic Surgery Additional Past Surgical History / Comment(s): rt ankle/foot, gastric sleeve on 09/09/16 Past Anesthesia/Blood Transfusion Reactions: No Reported Reaction Past Psychological History: Anxiety, Bipolar, Depression, Schizophrenia Smoking Status: Current some day smoker Past Alcohol Use History: None Reported Additional Past Alcohol Use History / Comment(s): quit smoking 08-29-16, Started smoking at age 15 years of age. Past Drug Use History: None Reported - Past Family History Father Family Medical History: Hypertension Additional Family Medical History / Comment(s): Father is alive at age 57 with history of hypertension. Mother Family Medical History: Hypertension Additional Family Medical History / Comment(s): Mother is alive at age 53 with history of hypertension. Sister(s) Additional Family Medical History / Comment(s): Patient has 3 sisters with no major medical problems. Patient has 1 brother with no major medical problems. She does not have any children. Surgical - Exam Vital Signs Temp Pulse BP 98 F 81 144/88 12/12/16 13:41 12/12/16 13:41 12/12/16 13:41 - General well developed, no distress - Eyes PERRL - ENT normal pinna - Neck no masses - Respiratory normal expansion - Cardiovascular Rhythm: regular - Abdomen Abdomen: soft, non tender Bariatric Assessment & Plan Plan: Status post sleeve gastrectomy. Patient is doing quite well. Her GERD symptoms are minimal and we observed. Her arthritis is improving with weight loss. She'll follow-up in 4 weeks. Bariatric Checklist Checklist: Plan: Checklist: EGD: 1. Hiatal hernia: 2. H. Pylori: HgbA1c: Vitamin D: Smoking: Current some day smoker Primary care physician referral: Devin Psychiatry clearance: Cardiology clearance: Sleep study: Diet journal: VTE risk score: VTE risk level: Rehab needs at discharge:
== END ==
LOC: BARWHC3 13:13
PROVIDERS: ATTEND Surgery
DX: E66.01 Morbid (severe) obesity due to excess calories (principal); Z98.84 Bariatric surgery status; Z87.891 Personal history of nicotine dependence
CPT/HCPCS: 97803; 99211

== ENCOUNTER → 2017-01-21 | Outpatient (CLI) | payer BC, OTHER ==
[2017-01-21 12:19] LABS: CH 28.6; CHCM 32.8; HCT 44.5 % (34.0-46.0); HDW 2.61; HGB 14.7 gm/dL (11.4-16.0); MCH 28.8 pg (25.0-35.0); MCHC 32.9 g/dL (31.0-37.0); MCV 87.7 fL (80.0-100.0); RBC 5.08 m/uL (3.80-5.40); RDW 14.3 % (11.5-15.5); WBC 10.9 k/uL (3.8-10.6)
[2017-01-21 12:41] LABS: ALT 50 U/L (9-52); AST 22 U/L (14-36); Alkaline Phosphatase 88 U/L (38-126); Anion Gap 9 mmol/L; Blood Urea Nitrogen 10 mg/dL (7-17); Calcium 9.2 mg/dL (8.4-10.2); Carbon Dioxide 25 mmol/L (22-30); Chloride 108 mmol/L (98-107); Glucose 81 mg/dL (74-99); Non-African American GFR(MDRD) >60 (>60 ml/min/1.73 sqM); Potassium 4.3 mmol/L (3.5-5.1); Sodium 142 mmol/L (137-145); Total Bilirubin 0.4 mg/dL (0.2-1.3); Total Protein 6.5 g/dL (6.3-8.2)
[2017-01-21 13:47] LABS: Vitamin B12 676 pg/mL (239-931)
== END | disposition home or self-care (01) ==
LOC: LABWHC1 11:44
PROVIDERS: ATTEND Surgery
DX: E55.9 Vitamin D deficiency, unspecified (principal); E66.01 Morbid (severe) obesity due to excess calories
CPT/HCPCS: 36415; 80053; 82306; 82607; 82746; 84425; 85027

== ENCOUNTER → 2017-01-30 | Outpatient (CLI) | payer BC, OTHER ==
[2017-01-30 14:31] VITALS: BP 129/90; PULSE 76; RESP 16; TEMP 98.2; BMI 57.9
--- NOTE | 2017-01-30 17:05 | P.HPBAR ---
Bariatric H&P - History & Physicial H&P Date: 01/30/17 History & Physicial: Visit/CC: Sleeve follow-up Patient initial contact: Initial weight: 195.186 kg Initial weight in pounds: 430.31 Height: 5 ft 6 in Initial BMI: 69.4 Last weight: 378 Current weight: 162.84 kg Current weight in pounds: 359.00 Current BMI: 57.9 [place] body weight (based on NIH guidelines): 58.967 kg Excess body weight loss: 23.7% The patient is a 21 year-old F who presents for Bariatric Assessment. The patient presents today for sleeve gastrectomy follow-up. She is doing quite well. She's had some minimal GERD symptoms. Past Medical History Past Medical History: No Reported History Additional Past Medical History / Comment(s): Takes Metformin for weight loss, states not diabetic. History of Any Multi-Drug Resistant Organisms: None Reported Past Surgical History: Bariatric Surgery, Cholecystectomy, Orthopedic Surgery Additional Past Surgical History / Comment(s): rt ankle/foot, gastric sleeve on 09/09/16 Past Anesthesia/Blood Transfusion Reactions: No Reported Reaction Past Psychological History: Anxiety, Bipolar, Depression, Schizophrenia Smoking Status: Current some day smoker Past Alcohol Use History: None Reported Additional Past Alcohol Use History / Comment(s): quit smoking 08-29-16, Started smoking at age 15 years of age. Past Drug Use History: None Reported - Past Family History Father Family Medical History: Hypertension Additional Family Medical History / Comment(s): Father is alive at age 57 with history of hypertension. Mother Family Medical History: Hypertension Additional Family Medical History / Comment(s): Mother is alive at age 53 with history of hypertension. Sister(s) Additional Family Medical History / Comment(s): Patient has 3 sisters with no major medical problems. Patient has 1 brother with no major medical problems. She does not have any children. Surgical - Exam Vital Signs Temp Pulse Resp BP 98.2 F 76 16 129/90 01/30/17 14:28 01/30/17 14:28 01/30/17 14:28 01/30/17 14:28 - General well developed - Abdomen Abdomen: soft, non tender Bariatric Assessment & Plan Plan: Status post sleeve gastrectomy. Patient's had excellent weight loss. Her GERD symptoms are minimal will be observed. Bariatric Checklist Checklist: Plan: Checklist: EGD: 1. Hiatal hernia: 2. H. Pylori: HgbA1c: Vitamin D: Smoking: Current some day smoker Primary care physician referral: Devin Psychiatry clearance: Cardiology clearance: Sleep study: Diet journal: VTE risk score: VTE risk level: Rehab needs at discharge:
== END ==
LOC: BARWHC3 13:52
PROVIDERS: ATTEND Surgery
DX: K21.9 Gastro-esophageal reflux disease without esophagitis (principal); Z98.84 Bariatric surgery status
CPT/HCPCS: 99211

== ENCOUNTER → 2017-04-10 | Outpatient (CLI) | payer BC, OTHER ==
[2017-04-10 13:06] VITALS: BP 141/85; PULSE 87; RESP 16; TEMP 98.2; BMI 54.7
--- NOTE | 2017-04-10 14:20 | P.HPBAR ---
Bariatric H&P - History & Physicial H&P Date: 04/10/17 History & Physicial: Visit/CC: sleeve follow-up Patient initial contact: Initial weight: 195.186 kg Initial weight in pounds: 430.31 Height: 5 ft 6 in Initial BMI: 69.4 Last weight: 359 Current weight: 153.796 kg Current weight in pounds: 339.00 Current BMI: 54.7 [place] body weight (based on NIH guidelines): 58.967 kg Excess body weight loss: 30.4% The patient is a 21 year-old F who presents for Bariatric Assessment. The patient presents for sleeve gastric fall. She is doing well. She's had minimal GERD. She lost approximately 20 pounds her last visit. Past Medical History Past Medical History: No Reported History Additional Past Medical History / Comment(s): Takes Metformin for weight loss, states not diabetic. History of Any Multi-Drug Resistant Organisms: None Reported Past Surgical History: Bariatric Surgery, Cholecystectomy, Orthopedic Surgery Additional Past Surgical History / Comment(s): rt ankle/foot, gastric sleeve on 09/09/16 Past Anesthesia/Blood Transfusion Reactions: No Reported Reaction Past Psychological History: Anxiety, Bipolar, Depression, Schizophrenia Smoking Status: Current some day smoker Past Alcohol Use History: None Reported Additional Past Alcohol Use History / Comment(s): quit smoking 08-29-16, Started smoking at age 15 years of age. Past Drug Use History: None Reported - Past Family History Father Family Medical History: Hypertension Additional Family Medical History / Comment(s): Father is alive at age 57 with history of hypertension. Mother Family Medical History: Hypertension Additional Family Medical History / Comment(s): Mother is alive at age 53 with history of hypertension. Sister(s) Additional Family Medical History / Comment(s): Patient has 3 sisters with no major medical problems. Patient has 1 brother with no major medical problems. She does not have any children. Surgical - Exam Vital Signs Temp Pulse Resp BP 98.2 F 87 16 141/85 04/10/17 13:04 04/10/17 13:04 04/10/17 13:04 04/10/17 13:04 - General well developed, no distress - Eyes PERRL - ENT normal pinna - Cardiovascular Rhythm: regular - Abdomen Abdomen: soft, non tender Bariatric Assessment & Plan Plan: Status post sleep yesterday. Patient is doing well. Her GERD symptoms are minimal and will be observed. She'll follow-up in 8 weeks. Bariatric Checklist Checklist: Plan: Checklist: EGD: 1. Hiatal hernia: 2. H. Pylori: HgbA1c: Vitamin D: Smoking: Current some day smoker Primary care physician referral: Devin Psychiatry clearance: Cardiology clearance: Sleep study: Diet journal: VTE risk score: VTE risk level: Rehab needs at discharge:
== END ==
LOC: BARWHC3 12:53
PROVIDERS: ATTEND Surgery
DX: Z48.815 Encounter for surgical aftercare following surgery on the digestive system (principal); Z98.84 Bariatric surgery status; F17.200 Nicotine dependence, unspecified, uncomplicated; K21.9 Gastro-esophageal reflux disease without esophagitis
CPT/HCPCS: 97803; 99211

== ENCOUNTER → 2017-06-27 | Outpatient (CLI) | payer BC, OTHER ==
--- NOTE | 2017-06-27 10:07 | MR ---
EXAMINATION TYPE: MR thoracic spine wo con DATE OF EXAM: 06/27/2017 COMPARISON: NONE HISTORY: Pain in thoracic spine for 3 weeks per patient. TECHNIQUE: Multiplanar, multisequence imaging of thoracic spine is performed without contrast FINDINGS: Spinal cord shows normal course, caliber, and signal as it courses the thoracic spine. Jazmin tebral body heights and alignment are satisfactory. There is some disc desiccation in mid to lower th oracic levels. There are posterior disc herniations T6-T7 and T7-T8 levels identified on sagittal aaliyah ge 8. There are additional posterior disc herniations at T10-T11, T11-T12, and T12-L1 levels noted on sagittal image 7. Largest posterior disc herniation is seen on sagittal image 7 at T8-T9 level. Mild multilevel anterior spurring is present. Bone marrow signal intensity is maintained. Review of the axial images confirms right paracentral disc protrusion effacing anterolateral thecal s ac on axial image 2 series 701 at T6-T7 level. Axial images at T7-T8 level shows less prominent right paracentral disc protrusion effacing anterolat eral thecal sac on axial image 16 series 601. Axial images at T8-T9 level show more prominent right paracentral disc protrusion effacing anterolate ral thecal sac up to right ventral aspect of spinal cord on image 13 series 601, bilateral neural for issa are patent. Axial images at T10-T11 level show more broad-based right paracentral disc protrusion effacing rakesh lateral thecal sac up to ventral surface of spinal cord on axial image 8 series 601, bilateral neural foramina are patent. Axial images at T11-T12 level shows central disc protrusion mildly effacing anterior thecal sac, bila teral neural foramina are patent. Axial images at T12-L1 level show left paracentral disc protrusion effacing anterolateral thecal sac on axial image 1, bilateral neural foramina are patent. No suspicious findings in visualized thorax or upper abdomen are identified. 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
== END | disposition home or self-care (01) ==
LOC: RADMRIMAIN 07:58
PROVIDERS: ATTEND Family Medicine
DX: M51.24 Other intervertebral disc displacement, thoracic region (principal); M47.814 Spondylosis without myelopathy or radiculopathy, thoracic region
CPT/HCPCS: 72146

== ENCOUNTER → 2017-08-14 | Outpatient (CLI) | payer BC, OTHER ==
[2017-08-14 13:21] VITALS: BP 149/61; PULSE 78; TEMP 98.2; BMI 52.9
--- NOTE | 2017-08-14 15:52 | P.HPBAR ---
Bariatric H&P - History & Physicial H&P Date: 08/14/17 History & Physicial: Visit/CC: one year follow up Patient initial contact: Initial weight: 195.186 kg Initial weight in pounds: 430.31 Height: 5 ft 6 in Initial BMI: 69.4 Last weight: Current weight: 148.778 kg Current weight in pounds: 328.00 Current BMI: 52.9 [place] body weight (based on NIH guidelines): 58.967 kg Excess body weight loss: 34.0% The patient is a 22 year-old F who presents for Bariatric Assessment. Patient rents today for sleeve gastric a fall. She is doing very well. She's had some minimal GERD. Past Medical History Past Medical History: No Reported History Additional Past Medical History / Comment(s): Takes Metformin for weight loss, states not diabetic. History of Any Multi-Drug Resistant Organisms: None Reported Past Surgical History: Bariatric Surgery, Cholecystectomy, Orthopedic Surgery Additional Past Surgical History / Comment(s): rt ankle/foot, gastric sleeve on 09/09/16 Past Anesthesia/Blood Transfusion Reactions: No Reported Reaction Past Psychological History: Anxiety, Bipolar, Depression, Schizophrenia Smoking Status: Current every day smoker Past Alcohol Use History: None Reported Additional Past Alcohol Use History / Comment(s): quit smoking 08-29-16, Started smoking at age 15 years of age. Past Drug Use History: None Reported - Past Family History Father Family Medical History: Hypertension Additional Family Medical History / Comment(s): Father is alive at age 57 with history of hypertension. Mother Family Medical History: Hypertension Additional Family Medical History / Comment(s): Mother is alive at age 53 with history of hypertension. Sister(s) Additional Family Medical History / Comment(s): Patient has 3 sisters with no major medical problems. Patient has 1 brother with no major medical problems. She does not have any children. Surgical - Exam Vital Signs Temp Pulse BP 98.2 F 78 149/61 08/14/17 13:18 08/14/17 13:18 08/14/17 13:18 - General well developed, no distress - Eyes PERRL - ENT normal pinna - Neck no masses - Respiratory normal expansion - Cardiovascular Rhythm: regular - Abdomen Abdomen: soft, non tender Bariatric Assessment & Plan Plan: Status post sleeve gastrectomy. Patient is doing quite well. Her GERD symptoms are minimal with conservative. She'll follow-up in 4 weeks. Bariatric Checklist Checklist: Plan: Checklist: EGD: 1. Hiatal hernia: 2. H. Pylori: HgbA1c: Vitamin D: Smoking: Current every day smoker Primary care physician referral: Devin Psychiatry clearance: Cardiology clearance: Sleep study: Diet journal: VTE risk score: VTE risk level: Rehab needs at discharge:
== END | disposition home or self-care (01) ==
LOC: BARWHC3 12:41
PROVIDERS: ATTEND Surgery
DX: Z48.815 Encounter for surgical aftercare following surgery on the digestive system (principal); F17.200 Nicotine dependence, unspecified, uncomplicated; K21.9 Gastro-esophageal reflux disease without esophagitis; E66.01 Morbid (severe) obesity due to excess calories; Z71.3 Dietary counseling and surveillance; Z98.84 Bariatric surgery status; Z68.43 Body mass index [BMI] 50.0-59.9, adult
CPT/HCPCS: 97803; 99211

== ENCOUNTER 2017-10-26 15:30 | Emergency (ER) | payer BC, OTHER ==
[2017-10-26 15:35] VITALS: BP 143/93; PULSE 108; RESP 20; TEMP 98.1
--- NOTE | 2017-10-26 16:31 | XR ---
EXAMINATION TYPE: XR hand complete RT DATE OF EXAM: 10/26/2017 COMPARISON: NONE HISTORY: Pain fourth and fifth metacarpal phalangeal joint TECHNIQUE: 3 views right hand FINDINGS: No acute fractures are evident. Joint spaces are preserved. Soft tissues appear within norm al limits. Minimal soft tissue swelling over the metacarpal phalangeal joint space dorsally is not to tally excluded. Follow-up exams can be performed 7-10 days from acute trauma for continued pain. IMPRESSION: 1. No acute osseous abnormality.
--- NOTE | 2017-10-26 17:15 | ED ---
General Adult HPI - General Chief complaint: Extremity Injury, Upper Stated complaint: RT HAND INJURY Time Seen by Provider: 10/26/17 15:56 Source: patient, RN notes reviewed Mode of arrival: ambulatory Limitations: no limitations - History of Present Illness Initial comments: 22-year-old female presents to the emergency department for chief complaint of right hand pain 2 hours. Patient states she punched a brick wall because she was frustrated but did not give further details. Patient states her hand is painful around the fourth and fifth digit. Patient denies pain elsewhere in the hand. Patient has no other complaints at this time. Patient denies pain in the wrist or elbow or shoulder of the right upper extremity. Patient has full sensation in her right hand and can move her fingers. Patient denies redness of breath, chest pain, abdominal pain, nausea, vomiting, headaches, or human bites. - Related Data Home Medications Medication Instructions Recorded Confirmed ARIPiprazole [Abilify] 15 mg PO QAM 06/15/16 10/26/17 Medroxyprogesterone Acetate 150 mg SQ Q90D 06/15/16 10/26/17 [Depo-Provera] hydrOXYzine PAMOATE [Vistaril] 50 mg PO TID 06/20/16 10/26/17 lamoTRIgine [LaMICtal] 100 mg PO BID@0900,2100 08/16/16 10/26/17 Melatonin 2 mg PO HS 09/06/16 10/26/17 Escitalopram Oxalate 20 mg PO DAILY 09/09/16 10/26/17 lamoTRIgine [LaMICtal] 50 mg PO BID 09/09/16 10/26/17 chlorproMAZINE [Thorazine] 100 mg PO HS 10/11/16 10/26/17 Allergies Allergy/AdvReac Type Severity Reaction Status Date / Time venom-honey bee Allergy Swelling, Verified 10/26/17 15:35 [bee venom (honey bee)] difficulty breathing Review of Systems ROS Statement: Those systems with pertinent positive or pertinent negative responses have been documented in the HPI. ROS Other: All systems not noted in ROS Statement are negative. Past Medical History Past Medical History: No Reported History Additional Past Medical History / Comment(s): Takes Metformin for weight loss, states not diabetic. History of Any Multi-Drug Resistant Organisms: None Reported Past Surgical History: Bariatric Surgery, Cholecystectomy, Orthopedic Surgery Additional Past Surgical History / Comment(s): rt ankle/foot, gastric sleeve on 09/09/16 Past Anesthesia/Blood Transfusion Reactions: No Reported Reaction Past Psychological History: Anxiety, Bipolar, Depression, Schizophrenia Smoking Status: Current every day smoker Past Alcohol Use History: None Reported Past Drug Use History: None Reported - Past Family History Father Family Medical History: Hypertension Additional Family Medical History / Comment(s): Father is alive at age 57 with history of hypertension. Mother Family Medical History: Hypertension Additional Family Medical History / Comment(s): Mother is alive at age 53 with history of hypertension. Sister(s) Additional Family Medical History / Comment(s): Patient has 3 sisters with no major medical problems. Patient has 1 brother with no major medical problems. She does not have any children. General Exam Limitations: no limitations Respiratory exam: Present: normal lung sounds bilaterally. Absent: respiratory distress, wheezes, rales, rhonchi, stridor Cardiovascular Exam: Present: regular rate, normal rhythm, normal heart sounds. Absent: systolic murmur, diastolic murmur, rubs, gallop, clicks Extremities exam: Present: joint swelling (There is very mild swelling around the fourth and fifth MCP joints of the left hand. No step-off defects. Capillary refill less than 2 seconds and pedal pulse 2+ in the right upper extremity. Patient is able to move her hand including the fourth and fifth digits. She has full sensation to light touch in her right hand as well.) Course Vital Signs 10/26/17 15:34 Temperature 98.1 F Pulse Rate 108 H Respiratory 20 Rate Blood Pressure 143/93 O2 Sat by Pulse 99 Oximetry Medical Decision Making - Medical Decision Making 22-year-old female presents to the emergency department for chief complaint of right hand pain 2 hours after punching a brick wall. There is a small abrasion over the fourth and fifth MCP joints of the right hand. Patient is right-handed. Neurovascular intact on exam. X-ray demonstrates no acute fractures or abnormalities. Hand was Venkat wrapped and ice was applied and patient was educated on the Rice method of therapy. She will return to the emergency Department if she notices any worsening symptoms. She will get follow -up x-rays if symptoms continue for 7-10 days. Otherwise she will follow up with primary care in 1-2 days. She will take Tylenol for pain relief as discussed. Disposition Clinical Impression: Hand pain, right Disposition: HOME SELF-CARE Condition: Good Instructions: RICE Therapy (ED) Additional Instructions: Please take Tylenol or Motrin for pain relief. Please return to the emergency department if symptoms worsen. Please follow-up with primary care in 1-2 days. If symptoms continue for 7-10 days you may need repeat x-rays as discussed. Is patient prescribed a controlled substance at d/c from ED?: No Referrals: Antione Kaur DO [Primary Care Provider] - 1-2 days Time of Disposition: 17:22
== END 2017-10-26 17:32 | disposition home or self-care (01) ==
LOC: EC 15:30
DX: S60.511A Abrasion of right hand, initial encounter (principal); M25.441 Effusion, right hand; F20.9 Schizophrenia, unspecified; F31.9 Bipolar disorder, unspecified; F41.9 Anxiety disorder, unspecified; F17.200 Nicotine dependence, unspecified, uncomplicated; Z79.3 Long term (current) use of hormonal contraceptives; Z79.899 Other long term (current) drug therapy; Z91.030 Bee allergy status; W22.01XA Walked into wall, initial encounter
CPT/HCPCS: 99283

== ENCOUNTER 2018-01-24 03:03 | Emergency (ER) | payer BC, OTHER ==
[2018-01-24 05:38] LABS: ALT 26 U/L (9-52); AST 23 U/L (14-36); Albumin 3.9 g/dL (3.5-5.0); Alkaline Phosphatase 65 U/L (38-126); Amylase 43 U/L (30-110); Anion Gap 8 mmol/L; Blood Urea Nitrogen 12 mg/dL (7-17); Calcium 9.1 mg/dL (8.4-10.2); Carbon Dioxide 23 mmol/L (22-30); Chloride 110 mmol/L (98-107); GGT 18 U/L (12-43); Glucose 87 mg/dL (74-99); Lipase 79 U/L (23-300); Potassium 4.4 mmol/L (3.5-5.1); Sodium 141 mmol/L (137-145); Total Bilirubin 0.4 mg/dL (0.2-1.3); Total Protein 6.9 g/dL (6.3-8.2)
[2018-01-24 05:38] LABS: Appearance,Urine Cloudy (Clear); Bacteria,Urine Rare /hpf; Bilirubin,Urine Negative (Negative); Blood,Urine Negative (Negative); Color,Urine Yellow; Glucose,Urine (UA) Negative (Negative); Ketones,Urine Negative (Negative); Leukocyte Esterase,Urine Small (Negative); Mucus,Urine Few /hpf; Nitrite,Urine Negative (Negative); Protein,Urine Trace (Negative); RBC,Urine 2 /hpf (0-5); Specific Gravity,Urine 1.023 (1.001-1.035); Squamous Epithelial Cell,Urine 3 /hpf (0-4); WBC,Urine 2 /hpf (0-5)
[2018-01-24 05:58] LABS: Basophils # (A) 0.1 k/uL (0-0.2); Basophils % (A) 1 %; Eosinophils # (A) 0.2 k/uL (0-0.7); Eosinophils % (A) 3 %; HCT 44.2 % (34.0-46.0); HGB 14.9 gm/dL (11.4-16.0); Lymphocytes # (A) 3.2 k/uL (1.0-4.8); Lymphocytes % (A) 36 %; MCH 29.5 pg (25.0-35.0); MCHC 33.6 g/dL (31.0-37.0); MCV 87.7 fL (80.0-100.0); Monocytes # (A) 0.4 k/uL (0-1.0); Monocytes % (A) 5 %; Neutrophils # (A) 4.9 k/uL (1.3-7.7); Neutrophils % (A) 55 %; Platelet Count 290 k/uL (150-450); RBC 5.05 m/uL (3.80-5.40); RDW 13.9 % (11.5-15.5)
== END 2018-01-24 05:00 | disposition home or self-care (01) ==
LOC: EC 03:03
DX: R10.31 Right lower quadrant pain (principal); R11.10 Vomiting, unspecified; F25.9 Schizoaffective disorder, unspecified; F17.200 Nicotine dependence, unspecified, uncomplicated; Z90.49 Acquired absence of other specified parts of digestive tract; Z98.890 Other specified postprocedural states; Z79.899 Other long term (current) drug therapy; Z91.030 Bee allergy status
CPT/HCPCS: 36415; 80053; 81001; 81025; 82150; 82977; 83690; 85025; 96360; 99284

== ENCOUNTER 2018-01-25 10:31 | Emergency (ER) | payer BC, OTHER ==
[2018-01-25 10:47] VITALS: RESP 18
[2018-01-25] MEDS ORDERED: MORPHINE SULFATE 4 MG/ML SYRINGE IV STA (11:20)
[2018-01-25] MEDS ORDERED: SODIUM CHLORIDE 0.9% 1,000 ML IV STA ×2 (11:20)
[2018-01-25] MEDS ORDERED: KETOROLAC 30 MG/ML 1 ML VIAL IVP STA (11:20)
[2018-01-25] MEDS ORDERED: ONDANSETRON 4 MG/2 ML VIAL IVP STA (11:20)
[2018-01-25 12:07] LABS: Basophils # (A) 0.1 k/uL (0-0.2); Basophils % (A) 1 %; Eosinophils # (A) 0.2 k/uL (0-0.7); Eosinophils % (A) 2 %; HCT 43.1 % (34.0-46.0); HGB 14.8 gm/dL (11.4-16.0); Lymphocytes # (A) 2.5 k/uL (1.0-4.8); Lymphocytes % (A) 27 %; MCH 29.6 pg (25.0-35.0); MCHC 34.2 g/dL (31.0-37.0); MCV 86.5 fL (80.0-100.0); Mean Platelet Volume 6.7; Monocytes # (A) 0.3 k/uL (0-1.0); Monocytes % (A) 3 %; Neutrophils % (A) 66 %; Platelet Count 283 k/uL (150-450); RBC 4.99 m/uL (3.80-5.40); RDW 13.6 % (11.5-15.5); WBC 9.2 k/uL (3.8-10.6)
[2018-01-25 12:14] LABS: Partial Thromboplastin Time 23.8 sec (22.0-30.0); Prothrombin Time 9.8 sec (9.0-12.0)
[2018-01-25 12:24] LABS: Appearance,Urine Clear (Clear); Bacteria,Urine Many /hpf; Bilirubin,Urine Negative (Negative); Blood,Urine Negative (Negative); Color,Urine Light Yellow; Glucose,Urine (UA) Negative (Negative); Ketones,Urine Negative (Negative); Leukocyte Esterase,Urine Trace (Negative); Mucus,Urine Rare /hpf; Nitrite,Urine Negative (Negative); Protein,Urine Negative (Negative); Specific Gravity,Urine 1.006 (1.001-1.035); Squamous Epithelial Cell,Urine 4 /hpf (0-4); Urobilinogen,Urine <2.0 mg/dL (<2.0); WBC,Urine 1 /hpf (0-5)
[2018-01-25 12:30] LABS: ALT 29 U/L (9-52); AST 22 U/L (14-36); Albumin 4.3 g/dL (3.5-5.0); Alkaline Phosphatase 76 U/L (38-126); Amylase 47 U/L (30-110); Anion Gap 11 mmol/L; Blood Urea Nitrogen 9 mg/dL (7-17); Calcium 9.3 mg/dL (8.4-10.2); Carbon Dioxide 23 mmol/L (22-30); Chloride 107 mmol/L (98-107); Glucose 80 mg/dL (74-99); Lipase 49 U/L (23-300); Potassium 4.3 mmol/L (3.5-5.1); Sodium 141 mmol/L (137-145); Total Bilirubin 0.5 mg/dL (0.2-1.3); Total Protein 7.3 g/dL (6.3-8.2)
--- NOTE | 2018-01-25 12:35 | ED ---
Abdominal Pain HPI - General Chief Complaint: Abdominal Pain Stated Complaint: RLQ pain Time Seen by Provider: 01/25/18 10:54 Source: patient, RN notes reviewed, old records reviewed Mode of arrival: ambulatory Limitations: no limitations - History of Present Illness Initial Comments: This is a 22-year-old female presents emergency department today chief complaint of right lower quadrant abdominal pain for the past 2 days. Patient was seen in the emergency department early yesterday morning. Patient states that she has had no fevers or chills. She did have episodes of vomiting a few episodes of diarrhea. Patient has history of gastric sleeve procedure by Dr. Andrade a year ago. She denies any fever but reports she's felt chilled. Denies any urinary symptoms. She's had her gallbladder removed. - Related Data Home Medications Medication Instructions Recorded Confirmed ARIPiprazole [Abilify] 20 mg PO QAM 06/15/16 01/25/18 Medroxyprogesterone Acetate 150 mg SQ Q90D 06/15/16 01/25/18 [Depo-Provera] hydrOXYzine PAMOATE [Vistaril] 50 mg PO TID 06/20/16 01/25/18 lamoTRIgine [LaMICtal] 200 mg PO HS 08/16/16 01/25/18 Melatonin 2 mg PO HS 09/06/16 01/25/18 Escitalopram Oxalate 20 mg PO DAILY 09/09/16 01/25/18 chlorproMAZINE [Thorazine] 100 mg PO HS 01/25/18 01/25/18 Allergies Allergy/AdvReac Type Severity Reaction Status Date / Time venom-honey bee Allergy Swelling, Verified 01/25/18 11:15 [bee venom (honey bee)] difficulty breathing Review of Systems ROS Statement: Those systems with pertinent positive or pertinent negative responses have been documented in the HPI. ROS Other: All systems not noted in ROS Statement are negative. Past Medical History Past Medical History: No Reported History Additional Past Medical History / Comment(s): Takes Metformin for weight loss, states not diabetic. History of Any Multi-Drug Resistant Organisms: None Reported Past Surgical History: Bariatric Surgery, Cholecystectomy, Orthopedic Surgery Additional Past Surgical History / Comment(s): rt ankle/foot, gastric sleeve on 09/09/16 Past Anesthesia/Blood Transfusion Reactions: No Reported Reaction Past Psychological History: Anxiety, Bipolar, Depression, Schizophrenia Smoking Status: Current every day smoker Past Alcohol Use History: None Reported Past Drug Use History: None Reported - Past Family History Father Family Medical History: Hypertension Additional Family Medical History / Comment(s): Father is alive at age 57 with history of hypertension. Mother Family Medical History: Hypertension Additional Family Medical History / Comment(s): Mother is alive at age 53 with history of hypertension. Sister(s) Additional Family Medical History / Comment(s): Patient has 3 sisters with no major medical problems. Patient has 1 brother with no major medical problems. She does not have any children. General Exam - General Exam Comments Initial Comments: This is a 22-year-old female. Alert and oriented. No significant distress. Limitations: no limitations General appearance: alert, in no apparent distress Head exam: Present: atraumatic Eye exam: Present: normal appearance, PERRL, EOMI. Absent: scleral icterus, conjunctival injection, periorbital swelling ENT exam: Present: normal exam, mucous membranes moist Neck exam: Present: normal inspection Respiratory exam: Present: normal lung sounds bilaterally. Absent: respiratory distress, wheezes, rales, rhonchi, stridor Cardiovascular Exam: Present: regular rate, normal rhythm, normal heart sounds. Absent: systolic murmur, diastolic murmur, rubs, gallop, clicks GI/Abdominal exam: Present: soft, normal bowel sounds. Absent: distended, tenderness, guarding, rebound, rigid Extremities exam: Present: normal inspection, full ROM, normal capillary refill. Absent: tenderness, pedal edema, joint swelling, calf tenderness Back exam: Present: normal inspection Neurological exam: Present: alert, oriented X3, CN II-XII intact Psychiatric exam: Present: normal affect, normal mood Course Vital Signs 01/25/18 01/25/18 10:43 13:01 Temperature 98.5 F Pulse Rate 91 71 Respiratory 18 18 Rate Blood Pressure 143/92 121/55 O2 Sat by Pulse 100 99 Oximetry Medical Decision Making - Medical Decision Making 22-year-old female presents emergency department today with chief complaint of with right lower quadrant abdominal pain. History of gastric sleeve. Patient chills. He was seen in emergency room in 2 days ago. At that time she refuses computed tomography scan. This time patient's labwork was reviewed and unremarkable. CT shows no evidence of a care measures. The most likely be abdominal muscle strain. I informed Patient mother's results. Discussed into telemetry medicine close follow-up with primary care physician. All questions answered return parameters were discussed. - Lab Data Result diagrams: 01/25/18 11:40 01/25/18 11:40 Lab Results 01/25/18 01/25/18 01/25/18 Range/Units 11:40 11:40 11:40 WBC 9.2 (3.8-10.6) k/uL RBC 4.99 (3.80-5.40) m/uL Hgb 14.8 (11.4-16.0) gm/dL Hct 43.1 (34.0-46.0) % MCV 86.5 (80.0-100.0) fL MCH 29.6 (25.0-35.0) pg MCHC 34.2 (31.0-37.0) g/dL RDW 13.6 (11.5-15.5) % Plt Count 283 (150-450) k/uL Neutrophils % 66 % Lymphocytes % 27 % Monocytes % 3 % Eosinophils % 2 % Basophils % 1 % Neutrophils # 6.0 (1.3-7.7) k/uL Lymphocytes # 2.5 (1.0-4.8) k/uL Monocytes # 0.3 (0-1.0) k/uL Eosinophils # 0.2 (0-0.7) k/uL Basophils # 0.1 (0-0.2) k/uL PT (9.0-12.0) sec INR (<1.2) APTT (22.0-30.0) sec Sodium 141 (137-145) mmol/L Potassium 4.3 (3.5-5.1) mmol/L Chloride 107 (98-107) mmol/L Carbon Dioxide 23 (22-30) mmol/L Anion Gap 11 mmol/L BUN 9 (7-17) mg/dL Creatinine 0.61 (0.52-1.04) mg/dL Est GFR (CKD-EPI)AfAm >90 (>60 ml/min/1.73 sqM) Est GFR (CKD-EPI)NonAf >90 (>60 ml/min/1.73 sqM) Glucose 80 (74-99) mg/dL Plasma Lactic Acid Mike 1.0 (0.7-2.0) mmol/L Calcium 9.3 (8.4-10.2) mg/dL Total Bilirubin 0.5 (0.2-1.3) mg/dL AST 22 (14-36) U/L ALT 29 (9-52) U/L Alkaline Phosphatase 76 (38-126) U/L Total Protein 7.3 (6.3-8.2) g/dL Albumin 4.3 (3.5-5.0) g/dL Amylase 47 (30-110) U/L Lipase 49 (23-300) U/L Urine Color Urine Appearance (Clear) Urine pH (5.0-8.0) Ur Specific [place] (1.001-1.035) Urine Protein (Negative) Urine Glucose (UA) (Negative) Urine Ketones (Negative) Urine Blood (Negative) Urine Nitrite (Negative) Urine Bilirubin (Negative) Urine Urobilinogen (<2.0) mg/dL Ur Leukocyte Esterase (Negative) Urine WBC (0-5) /hpf Ur Squamous Epith Cells (0-4) /hpf Urine Bacteria (None) /hpf Urine Mucus (None) /hpf 01/25/18 01/25/18 Range/Units 11:40 12:00 WBC (3.8-10.6) k/uL RBC (3.80-5.40) m/uL Hgb (11.4-16.0) gm/dL Hct (34.0-46.0) % MCV (80.0-100.0) fL MCH (25.0-35.0) pg MCHC (31.0-37.0) g/dL RDW (11.5-15.5) % Plt Count (150-450) k/uL Neutrophils % % Lymphocytes % % Monocytes % % Eosinophils % % Basophils % % Neutrophils # (1.3-7.7) k/uL Lymphocytes # (1.0-4.8) k/uL Monocytes # (0-1.0) k/uL Eosinophils # (0-0.7) k/uL Basophils # (0-0.2) k/uL PT 9.8 (9.0-12.0) sec INR 1.0 (<1.2) APTT 23.8 (22.0-30.0) sec Sodium (137-145) mmol/L Potassium (3.5-5.1) mmol/L Chloride (98-107) mmol/L Carbon Dioxide (22-30) mmol/L Anion Gap mmol/L BUN (7-17) mg/dL Creatinine (0.52-1.04) mg/dL Est GFR (CKD-EPI)AfAm (>60 ml/min/1.73 sqM) Est GFR (CKD-EPI)NonAf (>60 ml/min/1.73 sqM) Glucose (74-99) mg/dL Plasma Lactic Acid Mike (0.7-2.0) mmol/L Calcium (8.4-10.2) mg/dL Total Bilirubin (0.2-1.3) mg/dL AST (14-36) U/L ALT (9-52) U/L Alkaline Phosphatase (38-126) U/L Total Protein (6.3-8.2) g/dL Albumin (3.5-5.0) g/dL Amylase (30-110) U/L Lipase (23-300) U/L Urine Color Light Yellow Urine Appearance Clear (Clear) Urine pH 7.0 (5.0-8.0) Ur Specific [place] 1.006 (1.001-1.035) Urine Protein Negative (Negative) Urine Glucose (UA) Negative (Negative) Urine Ketones Negative (Negative) Urine Blood Negative (Negative) Urine Nitrite Negative (Negative) Urine Bilirubin Negative (Negative) Urine Urobilinogen <2.0 (<2.0) mg/dL Ur Leukocyte Esterase Trace H (Negative) Urine WBC 1 (0-5) /hpf Ur Squamous Epith Cells 4 (0-4) /hpf Urine Bacteria Many H (None) /hpf Urine Mucus Rare H (None) /hpf - Radiology Data Radiology results: report reviewed CT is negative for any acute process. Disposition Clinical Impression: Abdominal pain Disposition: HOME SELF-CARE Condition: Good Instructions: Abdominal Pain (ED) Additional Instructions: Advised to follow-up with primary care physician. Return to emergency department if any alarming signs or symptoms occur. Is patient prescribed a controlled substance at d/c from ED?: No Referrals: Antione Kaur DO [Primary Care Provider] - 1-2 days Time of Disposition: 13:44
--- NOTE | 2018-01-25 13:28 | CT ---
EXAMINATION TYPE: CT abdomen pelvis w con DATE OF EXAM: 01/25/2018 COMPARISON: Prior CT abdomen pelvis 10/11/2016 HISTORY: Patient complains of RLQ pain. CT DLP: 2295.7 mGycm Automated exposure control for dose reduction was used. TECHNIQUE: Helical acquisition of images from the lung bases through the pelvis have been completed. CONTRAST: Performed without Oral Contrast and with IV Contrast, patient injected with 100 mL of Isovue 370. FINDINGS: Patient shows postoperative changes to the stomach status post gastric sleeve. Exam somewha t limited by patient body habitus. LUNG BASES: In the subpleural location right lower lobe there is a questionable 5 mm nodule seen poss ibly postinflammatory and axial image 1. AORTA: No significant abnormality is appreciated. LIVER/GB: Patient is post cholecystectomy. No evident liver mass. Liver is enlarged. PANCREAS: No significant abnormality is seen. SPLEEN: Spleen is enlarged. ADRENALS: No significant abnormality is seen. KIDNEYS: Circumaortic left renal vein noted incidentally. Kidneys are normal. No evident ureteral ingrid cification. REPRODUCTIVE ORGANS: No significant abnormality is seen BOWEL: The appendix is normal. No bowel obstruction. FREE AIR: No Free Air visible. ASCITES: None visible. PELVIC ADENOPATHY: None visualized. RETROPERITONEAL ADENOPATHY: No Retroperitoneal Adenopathy visible. URINARY BLADDER: No significant abnormality is seen. OSSEOUS STRUCTURES: No significant abnormality is seen. IMPRESSION: NO ABNORMALITY EVIDENT TO ACCOUNT FOR PATIENT'S SYMPTOMS. STABLE EXAM. POSTOP CHANGES. Possible subpl eural pulmonary nodule. Follow-up suggested.
[2018-01-25 14:14] VITALS: BP 117/60; PULSE 70; TEMP 98.3
== END 2018-01-25 14:12 | disposition home or self-care (01) ==
LOC: EC 10:31
DX: R10.31 Right lower quadrant pain (principal); R19.7 Diarrhea, unspecified; R11.10 Vomiting, unspecified; F41.9 Anxiety disorder, unspecified; F31.9 Bipolar disorder, unspecified; F20.9 Schizophrenia, unspecified; F17.200 Nicotine dependence, unspecified, uncomplicated; Z90.49 Acquired absence of other specified parts of digestive tract; Z98.84 Bariatric surgery status; Z79.52 Long term (current) use of systemic steroids; Z79.899 Other long term (current) drug therapy; Z91.030 Bee allergy status
CPT/HCPCS: 36415; 74177; 80053; 81001; 82150; 83605; 83690; 85025; 85610; 85730; 87040; 96361; 96374; 96375; 99285

== ENCOUNTER 2018-08-28 17:54 | Inpatient (IN) | payer BC, OTHER ==
[2018-08-28] MEDS ORDERED: SODIUM CHLORIDE 0.9% 1,000 ML IV STA (18:35)
--- NOTE | 2018-08-28 19:09 | ED ---
Overdose HPI - General Chief Complaint: Overdose Stated Complaint: Overdose Time Seen by Provider: 08/28/18 18:00 Source: EMS Mode of arrival: EMS Limitations: no limitations - History of Present Illness Initial Comments: 23-year-old female patient presents to emergency department for evaluation after overdosing on her Thorazine prescription. Family member states that she took the medications around 5 PM. Patient states she does remember how many pills she took. EMS reported that she did vomit up 18 pills upon their arrival around 1800. Patient states she feels very tired right now denies any other symptoms. She denies any headache, blurred vision, double vision, dizziness, weakness, nausea, or vomiting. Patient states this was a medication prescribed to her. She denies taking other medications. Denies any alcohol or drug use. Patient states she did take the medication in attempt to kill herself. Patient states she has an extensive mental health history and has tried to commit suicide in the past. She has been admitted for inpatient mental health treatment in the past as well. Patient denies any recent rash, fever, chills, shortness breath, chest pain, abdominal pain, diarrhea, constipation, back pain , numbness, tingling, hematuria, dysuria, urinary urgency, urinary frequency, or any other complaints. - Related Data Home Medications Medication Instructions Recorded Confirmed ARIPiprazole [Abilify] 20 mg PO QAM 06/15/16 08/28/18 Medroxyprogesterone Acetate 150 mg SQ Q90D 06/15/16 08/28/18 [Depo-Provera] hydrOXYzine PAMOATE [Vistaril] 50 mg PO TID 06/20/16 08/28/18 lamoTRIgine [LaMICtal] 200 mg PO HS 08/16/16 08/28/18 Escitalopram Oxalate 20 mg PO DAILY 09/09/16 08/28/18 chlorproMAZINE [Thorazine] 100 mg PO HS 01/25/18 08/28/18 Allergies Allergy/AdvReac Type Severity Reaction Status Date / Time venom-honey bee Allergy Swelling, Verified 08/28/18 18:44 [bee venom (honey bee)] difficulty breathing Review of Systems ROS Statement: Those systems with pertinent positive or pertinent negative responses have been documented in the HPI. ROS Other: All systems not noted in ROS Statement are negative. Past Medical History Past Medical History: No Reported History Additional Past Medical History / Comment(s): Takes Metformin for weight loss, states not diabetic. History of Any Multi-Drug Resistant Organisms: None Reported Past Surgical History: Bariatric Surgery, Cholecystectomy, Orthopedic Surgery Additional Past Surgical History / Comment(s): rt ankle/foot, gastric sleeve on 09/09/16 Past Anesthesia/Blood Transfusion Reactions: No Reported Reaction Past Psychological History: Anxiety, Bipolar, Depression, Schizophrenia Smoking Status: Current every day smoker Past Alcohol Use History: None Reported Past Drug Use History: None Reported - Past Family History Father Family Medical History: Hypertension Additional Family Medical History / Comment(s): Father is alive at age 57 with history of hypertension. Mother Family Medical History: Hypertension Additional Family Medical History / Comment(s): Mother is alive at age 53 with history of hypertension. Sister(s) Additional Family Medical History / Comment(s): Patient has 3 sisters with no major medical problems. Patient has 1 brother with no major medical problems. She does not have any children. General Exam Limitations: no limitations General appearance: alert, in no apparent distress, other (Physical well- developed, well-nourished adult female patient in no acute distress. Vital signs upon presentation are temperature 97.8F, pulse 128, respirations 16, blood pressure 144/90, pulse ox 96% on room air.) Eye exam: Present: normal appearance, PERRL, EOMI. Absent: scleral icterus, conjunctival injection, nystagmus, periorbital swelling ENT exam: Present: normal exam, normal oropharynx, mucous membranes moist Respiratory exam: Present: normal lung sounds bilaterally. Absent: respiratory distress, wheezes, rales, rhonchi, stridor Cardiovascular Exam: Present: normal rhythm, tachycardia, normal heart sounds. Absent: systolic murmur, diastolic murmur, rubs, gallop, clicks GI/Abdominal exam: Present: soft, normal bowel sounds. Absent: distended, tenderness, guarding, rebound, rigid Neurological exam: Present: oriented X3, CN II-XII intact. Absent: alert ( Drowsy) Psychiatric exam: Present: normal mood, depressed, suicidal ideation, other ( Tearful). Absent: normal affect, homicidal ideation Skin exam: Present: warm, dry, intact, normal color. Absent: rash Course Vital Signs 08/28/18 08/28/1819 18:03 19:30 20:39 Temperature 97.8 F 97.6 F Pulse Rate 128 H 122 H 108 H Respiratory 16 26 H 26 H Rate Blood Pressure 144/90 110/61 120/62 O2 Sat by Pulse 96 97 92 L Oximetry 08/28/18 22:19 Temperature Pulse Rate 89 Respiratory 24 Rate Blood Pressure 93/59 O2 Sat by Pulse 97 Oximetry Medical Decision Making - Medical Decision Making 23-year-old female patient presents to the emergency department today for evaluation after intentionally overdosing on her prescription of Thorazine. Patient did admit that she did this in attempt to commit suicide. Patient labs are unremarkable. Patient was tachycardic and drowsy. Given long-acting nature of Thorazine we'll admit for observation have patient evaluated by psychiatric services tomorrow. - Lab Data Result diagrams: 08/28/18 18:32 08/28/18 18:32 Lab Results 08/28/18 08/28/18 08/28/18 Range/Units 18:32 18:32 18:32 WBC 6.7 (3.8-10.6) k/uL RBC 5.09 (3.80-5.40) m/uL Hgb 15.1 (11.4-16.0) gm/dL Hct 45.7 (34.0-46.0) % MCV 89.8 (80.0-100.0) fL MCH 29.6 (25.0-35.0) pg MCHC 33.0 (31.0-37.0) g/dL RDW 13.5 (11.5-15.5) % Plt Count 262 (150-450) k/uL Neutrophils % 63 % Lymphocytes % 28 % Monocytes % 5 % Eosinophils % 3 % Basophils % 0 % Neutrophils # 4.2 (1.3-7.7) k/uL Lymphocytes # 1.9 (1.0-4.8) k/uL Monocytes # 0.3 (0-1.0) k/uL Eosinophils # 0.2 (0-0.7) k/uL Basophils # 0.0 (0-0.2) k/uL Sodium 140 (137-145) mmol/L Potassium 3.6 (3.5-5.1) mmol/L Chloride 108 H (98-107) mmol/L Carbon Dioxide 23 (22-30) mmol/L Anion Gap 9 mmol/L BUN 9 (7-17) mg/dL Creatinine 0.69 (0.52-1.04) mg/dL Est GFR (CKD-EPI)AfAm >90 (>60 ml/min/1.73 sqM) Est GFR (CKD-EPI)NonAf >90 (>60 ml/min/1.73 sqM) Glucose 100 H (74-99) mg/dL Calcium 9.4 (8.4-10.2) mg/dL Phosphorus 4.4 (2.5-4.5) mg/dL Magnesium 2.0 (1.6-2.3) mg/dL Total Bilirubin 0.4 (0.2-1.3) mg/dL AST 18 (14-36) U/L ALT 28 (9-52) U/L Alkaline Phosphatase 82 (38-126) U/L Total Creatine Kinase 229 H (30-135) U/L CK-MB (CK-2) 3.1 H (0.0-2.4) ng/mL CK-MB (CK-2) Rel Index 1.4 Total Protein 7.0 (6.3-8.2) g/dL Albumin 4.1 (3.5-5.0) g/dL Urine Color Urine Appearance (Clear) Urine pH (5.0-8.0) Ur Specific Ray (1.001-1.035) Urine Protein (Negative) Urine Glucose (UA) (Negative) Urine Ketones (Negative) Urine Blood (Negative) Urine Nitrite (Negative) Urine Bilirubin (Negative) Urine Urobilinogen (<2.0) mg/dL Ur Leukocyte Esterase (Negative) Urine HCG, Qual (Not Detectd) Salicylates <1.0 mg/dL Urine Opiates Screen (NotDetected) Ur Oxycodone Screen (NotDetected) Urine Methadone Screen (NotDetected) Ur Propoxyphene Screen (NotDetected) Acetaminophen <10.0 ug/mL Ur Barbiturates Screen (NotDetected) U Tricyclic Antidepress (NotDetected) Ur Phencyclidine Scrn (NotDetected) Ur Amphetamines Screen (NotDetected) U Methamphetamines Scrn (NotDetected) U Benzodiazepines Scrn (NotDetected) Urine Cocaine Screen (NotDetected) U Marijuana (THC) Screen (NotDetected) Serum Alcohol <10 mg/dL 08/28/18 08/28/18 Range/Units 19:20 19:38 WBC (3.8-10.6) k/uL RBC (3.80-5.40) m/uL Hgb (11.4-16.0) gm/dL Hct (34.0-46.0) % MCV (80.0-100.0) fL MCH (25.0-35.0) pg MCHC (31.0-37.0) g/dL RDW (11.5-15.5) % Plt Count (150-450) k/uL Neutrophils % % Lymphocytes % % Monocytes % % Eosinophils % % Basophils % % Neutrophils # (1.3-7.7) k/uL Lymphocytes # (1.0-4.8) k/uL Monocytes # (0-1.0) k/uL Eosinophils # (0-0.7) k/uL Basophils # (0-0.2) k/uL Sodium (137-145) mmol/L Potassium (3.5-5.1) mmol/L Chloride (98-107) mmol/L Carbon Dioxide (22-30) mmol/L Anion Gap mmol/L BUN (7-17) mg/dL Creatinine (0.52-1.04) mg/dL Est GFR (CKD-EPI)AfAm (>60 ml/min/1.73 sqM) Est GFR (CKD-EPI)NonAf (>60 ml/min/1.73 sqM) Glucose (74-99) mg/dL Calcium (8.4-10.2) mg/dL Phosphorus (2.5-4.5) mg/dL Magnesium (1.6-2.3) mg/dL Total Bilirubin (0.2-1.3) mg/dL AST (14-36) U/L ALT (9-52) U/L Alkaline Phosphatase (38-126) U/L Total Creatine Kinase (30-135) U/L CK-MB (CK-2) (0.0-2.4) ng/mL CK-MB (CK-2) Rel Index Total Protein (6.3-8.2) g/dL Albumin (3.5-5.0) g/dL Urine Color Yellow Urine Appearance Clear (Clear) Urine pH 6.0 (5.0-8.0) Ur Specific Ray 1.007 (1.001-1.035) Urine Protein Negative (Negative) Urine Glucose (UA) Negative (Negative) Urine Ketones Negative (Negative) Urine Blood Negative (Negative) Urine Nitrite Negative (Negative) Urine Bilirubin Negative (Negative) Urine Urobilinogen <2.0 (<2.0) mg/dL Ur Leukocyte Esterase Negative (Negative) Urine HCG, Qual Not Detected (Not Detectd) Salicylates mg/dL Urine Opiates Screen Not Detected (NotDetected) Ur Oxycodone Screen Not Detected (NotDetected) Urine Methadone Screen Not Detected (NotDetected) Ur Propoxyphene Screen Not Detected (NotDetected) Acetaminophen ug/mL Ur Barbiturates Screen Not Detected (NotDetected) U Tricyclic Antidepress Not Detected (NotDetected) Ur Phencyclidine Scrn Not Detected (NotDetected) Ur Amphetamines Screen Not Detected (NotDetected) U Methamphetamines Scrn Not Detected (NotDetected) U Benzodiazepines Scrn Not Detected (NotDetected) Urine Cocaine Screen Not Detected (NotDetected) U Marijuana (THC) Screen Not Detected (NotDetected) Serum Alcohol mg/dL Disposition Clinical Impression: Overdose, Suicide attempt Disposition: ADMITTED IP TO THIS [facility] Condition: Serious Referrals: Antione Kaur DO [Primary Care Provider] - 1-2 days Decision to Admit Reason: Admit from EC Decision Date: 08/28/18 Decision Time: 22:52
[2018-08-28 19:11] LABS: Basophils % (A) 0 %; Eosinophils # (A) 0.2 k/uL (0-0.7); Eosinophils % (A) 3 %; HCT 45.7 % (34.0-46.0); HGB 15.1 gm/dL (11.4-16.0); Lymphocytes # (A) 1.9 k/uL (1.0-4.8); Lymphocytes % (A) 28 %; MCH 29.6 pg (25.0-35.0); MCV 89.8 fL (80.0-100.0); Mean Platelet Volume 6.9; Monocytes # (A) 0.3 k/uL (0-1.0); Monocytes % (A) 5 %; Neutrophils # (A) 4.2 k/uL (1.3-7.7); Neutrophils % (A) 63 %; Platelet Count 262 k/uL (150-450); RBC 5.09 m/uL (3.80-5.40); RDW 13.5 % (11.5-15.5); WBC 6.7 k/uL (3.8-10.6)
[2018-08-28 19:22] LABS: ALT 28 U/L (9-52); AST 18 U/L (14-36); Acetaminophen <10.0 ug/mL; Albumin 4.1 g/dL (3.5-5.0); Alcohol <10 mg/dL; Alkaline Phosphatase 82 U/L (38-126); Anion Gap 9 mmol/L; Blood Urea Nitrogen 9 mg/dL (7-17); Calcium 9.4 mg/dL (8.4-10.2); Carbon Dioxide 23 mmol/L (22-30); Chloride 108 mmol/L (98-107); Glucose 100 mg/dL (74-99); Phosphorus 4.4 mg/dL (2.5-4.5); Potassium 3.6 mmol/L (3.5-5.1); Salicylate <1.0 mg/dL; Sodium 140 mmol/L (137-145); Total Bilirubin 0.4 mg/dL (0.2-1.3)
[2018-08-28 19:29] LABS: Creatine Kinase MB 3.1 ng/mL (0.0-2.4)
[2018-08-28 19:45] LABS: Appearance,Urine Clear (Clear); Bilirubin,Urine Negative (Negative); Blood,Urine Negative (Negative); Color,Urine Yellow; Glucose,Urine (UA) Negative (Negative); Ketones,Urine Negative (Negative); Leukocyte Esterase,Urine Negative (Negative); Nitrite,Urine Negative (Negative); Protein,Urine Negative (Negative); Specific Gravity,Urine 1.007 (1.001-1.035); Urobilinogen,Urine <2.0 mg/dL (<2.0)
[2018-08-28 19:57] LABS: Amphetamine Screen,Urine Not Detected (NotDetected); Barbiturate Screen,Urine Not Detected (NotDetected); Benzodiazepines Screen,Urine Not Detected (NotDetected); Cocaine Screen,Urine Not Detected (NotDetected); Methadone Screen, Urine Not Detected (NotDetected); Opiate Screen,Urine Not Detected (NotDetected); Oxycodone Screen, Urine Not Detected (NotDetected); Phencyclidine Screen,Urine Not Detected (NotDetected); Tricyclic Antidepressant,Urine Not Detected (NotDetected); Urn Cannabinoid Scrn Not Detected (NotDetected)
[2018-08-28] MEDS ORDERED: SODIUM CHLORIDE 0.9% 1,000 ML IV ONE (21:51)
[2018-08-28] MEDS ORDERED: NALOXONE 0.4 MG/ML 1 ML VIAL IV PRN (22:48)
[2018-08-28] MEDS ORDERED: LORazepam 2 MG/ML INJ IV PRN (22:48)
[2018-08-29] MEDS: SODIUM CHLORIDE 0.9% 1,000 ML IV SCH ×2 (00:45→20:47)
--- NOTE | 2018-08-29 08:14 | XR ---
EXAMINATION TYPE: XR chest 1V portable DATE OF EXAM: 08/29/2018 COMPARISON: 09/04/2015 INDICATION: Decreased O2 TECHNIQUE: Single frontal view of the chest is obtained. Exam is limited due to body habitus. FINDINGS: The heart size is normal. The pulmonary vasculature is normal. The lungs are clear. IMPRESSION: 1. No acute pulmonary process.
[2018-08-29 09:17] LABS: Anion Gap 6 mmol/L; Blood Urea Nitrogen 8 mg/dL (7-17); Calcium 8.7 mg/dL (8.4-10.2); Carbon Dioxide 23 mmol/L (22-30); Chloride 114 mmol/L (98-107); Glucose 93 mg/dL (74-99); Potassium 4.6 mmol/L (3.5-5.1); Sodium 143 mmol/L (137-145)
[2018-08-29 09:19] LABS: ABG HCO3 22 mmol/L (21-25); ABG Oxygen Saturation 99.4 % (94-97); ABG PCO2 34 mmHg (35-45); ABG PH 7.41 (7.35-7.45); ABG PO2 141 mmHg (83-108); ABG TCO2 23 mmol/L (19-24)
[2018-08-29 09:39] LABS: Basophils % (A) 0 %; Eosinophils # (A) 0.1 k/uL (0-0.7); Eosinophils % (A) 1 %; HCT 42.7 % (34.0-46.0); HGB 13.9 gm/dL (11.4-16.0); Lymphocytes # (A) 1.6 k/uL (1.0-4.8); Lymphocytes % (A) 13 %; MCH 29.9 pg (25.0-35.0); MCHC 32.6 g/dL (31.0-37.0); MCV 91.9 fL (80.0-100.0); Mean Platelet Volume 6.8; Monocytes # (A) 0.6 k/uL (0-1.0); Monocytes % (A) 5 %; Neutrophils # (A) 10.1 k/uL (1.3-7.7); Neutrophils % (A) 81 %; Platelet Count 250 k/uL (150-450); RBC 4.64 m/uL (3.80-5.40); RDW 13.6 % (11.5-15.5); WBC 12.5 k/uL (3.8-10.6)
--- NOTE | 2018-08-29 15:29 | P.CN ---
Psychiatric Consult - . Consult date: 08/29/18 Consult:: 08/29/18 13:19 Thorazine overdose in a suicide attempt Assessment and Plan Assessment: 23-year-old female patient presents to emergency department for evaluation after overdosing on her Thorazine prescription. Family member states that she took the medications around 5 PM. Patient states she does remember how many pills she took. EMS reported that she did vomit up 18 pills upon their arrival around 1800. Patient states she feels very tired right now denies any other symptoms. She denies any headache, blurred vision, double vision, dizziness, weakness, nausea, or vomiting. Patient states this was a medication prescribed to her. She denies taking other medications. Denies any alcohol or drug use. Patient states she did take the medication in attempt to kill herself. Patient states she has an extensive mental health history and has tried to commit suicide in the past. She has been admitted for inpatient mental health treatment in the past as well. Patient denies any recent rash, fever, chills, shortness breath, chest pain, abdominal pain, diarrhea, constipation, back pain , numbness, tingling, hematuria, dysuria, urinary urgency, urinary frequency, or any other complaints. - Related Data Home Medications Medication Instructions Recorded Confirmed ARIPiprazole [Abilify] 20 mg PO QAM 06/15/16 08/28/18 Medroxyprogesterone Acetate 150 mg SQ Q90D 06/15/16 08/28/18 [Depo-Provera] hydrOXYzine PAMOATE [Vistaril] 50 mg PO TID 06/20/16 08/28/18 lamoTRIgine [LaMICtal] 200 mg PO HS 08/16/16 08/28/18 Escitalopram Oxalate 20 mg PO DAILY 09/09/16 08/28/18 chlorproMAZINE [Thorazine] 100 mg PO HS 01/25/18 08/28/18 Allergies Allergy/AdvReac Type Severity Reaction Status Date / Time venom-honey bee Allergy Swelling, Verified 08/28/18 18:44 [bee venom (honey bee)] difficulty breathing Past Medical History Past Medical History: No Reported History Additional Past Medical History / Comment(s): Takes Metformin for weight loss, states not diabetic. History of Any Multi-Drug Resistant Organisms: None Reported Past Surgical History: Bariatric Surgery, Cholecystectomy, Orthopedic Surgery Additional Past Surgical History / Comment(s): rt ankle/foot, gastric sleeve on 09/09/16 Past Anesthesia/Blood Transfusion Reactions: No Reported Reaction Past Psychological History: Anxiety, Bipolar, Depression, Schizophrenia Smoking Status: Current every day smoker Past Alcohol Use History: None Reported Past Drug Use History: None Reported - Past Family History Father Family Medical History: Hypertension Additional Family Medical History / Comment(s): Father is alive at age 57 with history of hypertension. Mother Family Medical History: Hypertension Additional Family Medical History / Comment(s): Mother is alive at age 53 with history of hypertension. Sister(s) Additional Family Medical History / Comment(s): Patient has 3 sisters with no major medical problems. Patient has 1 brother with no major medical problems. She does not have any children. FAMILY HISTORY OF PSYCHIATRIC ILLNESSES: She stated her grandmother and her mother's aunt had a similar kind of problems. She denies any history of alcohol or drug abuse or history of suicide in the family. DEVELOPMENTAL HISTORY AND CHILDHOOD: This patient was academically behind in every single subject in the school. She denies any history of any type of abuse. She dropped out of school in 10th grade. Her comprehension is a poor. 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 Mental Status Examination - General Appearance: [ disheveled, appears older than stated age Speech/Language: [ slow, rambled, monotone, expressive, soft] Attitude/Behavior: [cooperative Mood: [ depressed, anxious, irritable, fearful, hopelessness] Affect: [ labile, blunted constricted Orientation: [time, person, place situation] Thought Content: [ delusions Risk Factors: [SHE IS CURRENTLY suicidal (ideations, plan), and/or Homicidal ( ideations, plan), other] Perception: [hallucinations (auditory Thought Processes: [concrete, circumstantial Concentration/Attention Span: [ impaired] [Per observation and interview with the patient] Recent Memory: [ impaired] [0 out of 3 in 3 minutes] Remote Memory: [wnl] [past events, as related history] Intelligence: [below average] [based on history, based on vocabulary, syntax, grammar, and content] Judgement: [fair] [per patient's behavior/history of present illness] Insight: [ fair] [understanding severity of illness/history of present illness Psychiatric impression:major depressive disorder-with acute psychosis Psychiatric recommendation:sitter and transfer to [facility] when medically stable Thank you for the consult Eric Sanabria D.O. PhD] (1) Overdose Current Visit: Yes Status: Acute Priority: High Code(s): T50.901A - POISONING BY UNSP DRUG/MEDS/BIOL SUBST, ACCIDENTAL, INIT SNOMED Code(s): 72397441 (2) Suicide attempt Current Visit: Yes Status: Acute Priority: High Code(s): T14.91XA - SUICIDE ATTEMPT, INITIAL ENCOUNTER SNOMED Code(s): 83087893 (3) Depression Current Visit: No Status: Acute Priority: High Code(s): F32.9 - MAJOR DEPRESSIVE DISORDER, SINGLE EPISODE, UNSPECIFIED SNOMED Code(s): 24265462 Time with Patient: Less than 30
[2018-08-29] MEDS ORDERED: HEPARIN SODIUM,PORCINE 5,000 UNIT/ML 1 ML VIAL IV PRN (16:18)
[2018-08-29] MEDS ORDERED: HEPARIN SODIUM,PORCINE 10,000 UNIT/ML 1 ML VIAL IV ONE (16:18)
--- NOTE | 2018-08-29 16:19 | CT ---
EXAMINATION TYPE: CT angio chest DATE OF EXAM: 08/29/2018 COMPARISON: NONE HISTORY: Hypoxia, rule out PE CT DLP: 820.3 mGycm. Automated Exposure Control for Dose Reduction was Utilized. CONTRAST: CTA scan of the thorax is performed with IV Contrast, patient injected with 100 mL of Isovue 370, pul monary embolism protocol. MIP Images are created on CT scanner and reviewed. FINDINGS: LUNGS: The lungs are grossly clear, there is no concerning parenchymal mass or nodule identified. Sc attered subsegmental dependent atelectasis throughout the lungs. There is no pleural effusion or pneu mothorax seen. The tracheobronchial tree is patent. MEDIASTINUM: There is satisfactory enhancement of the pulmonary artery and its branches. Filling defe cts are seen within the segmental and subsegmental branches to the lower lobes, nonocclusive. Pulmona ry arteries of the upper lobes, lingula and right middle lobe are spared. No abnormal right ventricul ar to left ventricular ratio or significant reflux of contrast into the inferior vena cava to suggest right heart strain. No enlargement of the main pulmonary artery. No cardiomegaly or pericardial eff usion is seen. There is a homogeneous superior anterior mediastinal mass measuring 3.7 x 2.6 cm with rounded margins. This could represent thymic hyperplasia, thymoma, lymphoma, or residual finding this . This closely abuts the pericardial margins although no distinct pericardial invasion is seen. No in ternal calcifications are noted. OTHER: Partial gastrectomy and cholecystectomy change is seen. Findings most compatible with mild hep atic steatosis are noted. Very minimal degenerative changes of the thoracic spine are present. IMPRESSION: 1. Small incompletely occlusive lower lobe segmental and subsegmental acute pulmonary emboli without evidence of right heart strain. 2. Homogeneous anterior mediastinal mass with smooth margins. MRI chest with in and out of phase imag ing and contrast to assess for thymic hyperplasia. If this does not relate to thymic hyperplasia perc utaneous biopsy could be performed. Findings #1 and #2 were discussed with the ordering physician Dr. Bangura by Dr. Gillespie at 1615 on 08/29/2018.
[2018-08-29 17:16] LABS: Basophils % (A) 0 %; Eosinophils # (A) 0.1 k/uL (0-0.7); Eosinophils % (A) 1 %; HCT 42.5 % (34.0-46.0); HGB 13.4 gm/dL (11.4-16.0); Lymphocytes # (A) 1.8 k/uL (1.0-4.8); Lymphocytes % (A) 20 %; MCH 29.1 pg (25.0-35.0); MCHC 31.6 g/dL (31.0-37.0); MCV 92.2 fL (80.0-100.0); Mean Platelet Volume 6.8; Monocytes # (A) 0.4 k/uL (0-1.0); Monocytes % (A) 4 %; Neutrophils # (A) 6.7 k/uL (1.3-7.7); Neutrophils % (A) 73 %; Platelet Count 261 k/uL (150-450); RBC 4.62 m/uL (3.80-5.40); RDW 13.5 % (11.5-15.5); WBC 9.1 k/uL (3.8-10.6)
[2018-08-29 17:20] LABS: Partial Thromboplastin Time 25.3 sec (22.0-30.0); Prothrombin Time 10.9 sec (9.0-12.0)
[2018-08-29] MEDS: HEPARIN SOD,PORK IN 0.45% NACL 25,000 UNIT in 0.45% NACL 1 250ML.BAG IV SCH (17:42)
--- NOTE | 2018-08-29 18:14 | P.CNPUL ---
History of Present Illness Consult date: 08/29/18 Reason for consult: hypoxemia Chief complaint: Overdose History of present illness: 23 year old female presented to the emergency department after taking too much thorazine. She did state she was trying to harm herself. Pulmonary is consulted because the patient became progressively more hypoxic. Upon evaluation the patient was on 6L HF NC with O2 saturation 98%. She denies chest pain and shortness of breath at this time. She does note shortness of breath earlier in the day. She has had a cough for 2 weeks. She denies fevers and chills. She denies a history of asthma and COPD. She was recently on Amoxicillin for a cold. She is not on any inhalers or nebulizers. She denies wheezing. She does smoke 1/2 ppd x 7 years. She denies a history of PE or DVT. She denies recent travel, long car rides, recent surgeries, prolonged bed rest. She is on Depo IM for control. Review of Systems All systems: negative Past Medical History Past Medical History: No Reported History Additional Past Medical History / Comment(s): Takes Metformin for weight loss, states not diabetic. History of Any Multi-Drug Resistant Organisms: None Reported Past Surgical History: Bariatric Surgery, Cholecystectomy, Orthopedic Surgery Additional Past Surgical History / Comment(s): rt ankle/foot, gastric sleeve on 09/09/16 Past Anesthesia/Blood Transfusion Reactions: No Reported Reaction Past Psychological History: Anxiety, Bipolar, Depression, Schizophrenia Smoking Status: Current every day smoker Past Alcohol Use History: None Reported Additional Past Alcohol Use History / Comment(s): quit smoking 08-29-16, Started smoking at age 15 years of age. Smokes a half of a pack per day. Past Drug Use History: None Reported - Past Family History Father Family Medical History: Hypertension Additional Family Medical History / Comment(s): Father is alive at age 57 with history of hypertension. Mother Family Medical History: Hypertension Additional Family Medical History / Comment(s): Mother is alive at age 53 with history of hypertension. Sister(s) Additional Family Medical History / Comment(s): Patient has 3 sisters with no major medical problems. Patient has 1 brother with no major medical problems. She does not have any children. Medications and Allergies Home Medications Medication Instructions Recorded Confirmed Type ARIPiprazole [Abilify] 20 mg PO QAM 06/15/16 08/28/18 History Medroxyprogesterone Acetate 150 mg SQ Q90D 06/15/16 08/28/18 History [Depo-Provera] hydrOXYzine PAMOATE [Vistaril] 50 mg PO TID 06/20/16 08/28/18 History lamoTRIgine [LaMICtal] 200 mg PO HS 08/16/16 08/28/18 History Escitalopram Oxalate 20 mg PO DAILY 09/09/16 08/28/18 History chlorproMAZINE [Thorazine] 100 mg PO HS 01/25/18 08/28/18 History Allergies Allergy/AdvReac Type Severity Reaction Status Date / Time venom-honey bee Allergy Swelling, Verified 08/28/18 18:44 [bee venom (honey bee)] difficulty breathing Physical Exam Osteopathic Statement: *. No significant issues noted on an osteopathic structural exam other than those noted in the History and Physical/Consult. Vitals: Vital Signs Temp Pulse Pulse Resp BP BP Pulse Ox 08/29/18 15:27 108 H 16 08/29/18 08:00 108 H 16 08/29/18 06:40 129 H 108/62 08/29/18 06:29 134 H 113/60 08/29/18 06:23 137 H 118/57 08/29/18 06:15 140 H 130/54 08/29/18 00:55 98.6 F 85 16 102/58 97 08/28/18 23:16 89 22 112/63 97 08/28/18 22:19 89 24 93/59 97 08/28/18 20:39 108 H 26 H 120/62 92 L 08/28/18 19:30 97.6 F 122 H 26 H 110/61 97 Intake and Output 08/29/18 08/29/18 08/29/18 06:59 14:59 22:59 Other: # Voids 1 General: A+OX3, NAD, obese CV: RRR, s1/s2, tachy Lungs: CTAB, no w/r/r Abd: soft, NT/ND, +BS Ext: no edema Results - Laboratory Findings CBC and BMP: 08/29/18 16:38 08/29/18 08:37 ABG ABG pH 7.41 (7.35-7.45) 08/29/18 09:14 ABG pCO2 34 mmHg (35-45) L 08/29/18 09:14 ABG pO2 141 mmHg (83-108) H 08/29/18 09:14 ABG O2 Saturation 99.4 % (94-97) H 08/29/18 09:14 PT/INR, D-dimer PT 10.9 sec (9.0-12.0) 08/29/18 16:38 INR 1.0 (<1.2) 08/29/18 16:38 Abnormal lab findings: Abnormal Labs 08/28/18 08/28/18 08/29/18 18:32 18:32 08:37 WBC 12.5 H Neutrophils # 10.1 H ABG pCO2 ABG pO2 ABG O2 Saturation Chloride 108 H Glucose 100 H Total Creatine Kinase 229 H CK-MB (CK-2) 3.1 H 08/29/18 08/29/18 08:37 09:14 WBC Neutrophils # ABG pCO2 34 L ABG pO2 141 H ABG O2 Saturation 99.4 H Chloride 114 H Glucose Total Creatine Kinase CK-MB (CK-2) - Diagnostic Findings Chest x-ray: report reviewed, image reviewed Assessment and Plan Assessment: Acute hypoxic respiratory failure Bilateral subsegmental PEs 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 We will continue to follow along.
[2018-08-29] MEDS: BUDESONIDE 0.5 MG/2 ML NEBU INHALATION SCH (19:52)
[2018-08-29] MEDS: IPRATROPIUM-ALBUTEROL 3 ML NEB INHALATION SCH (19:52)
--- NOTE | 2018-08-29 23:48 | P.HPIM ---
History of Present Illness H&P Date: 08/29/18 Chief Complaint: Acute drug overdose Patient is a 23-year-old female with a known history of Anxiety, Bipolar, Depression, Schizophrenia, currently everyday smoker and history of bariatric surgery/sleeve gastrectomy was initially presented to ER due to Thorazine overdose. Patient does have frozen prescription. Patient took multiple pills around 5 PM yesterday. patient says that she is upset with herself and try to commit suicide. As per EMS report patient was able to vomit up 18 pills by the time she comes to ER. Patient otherwise denied any fever or chills. No cough or sputum production. Denied any recent illnesses. Denied any alcohol abuse. Patient is otherwise everyday smoker. Patient was initially admitted to MedSurg unit. Patient became hypoxic and went into respiratory failure. Patient was transferred to telemetry unit. Patient does not have any history of asthma or COPD. Patient was not been wheezing. Patient is requiring high flow nasal cannula oxygen. Patient denied any recent illnesses. No recent travel. Initial EKG showed sinus tachycardia with ventricular rate of 131. No ST T wave changes. Chest x-ray showed no acute cardio pulmonary process UDS negative Influenza negative CT angiogram to chest showed small incompletely occlusive lower lobe segmental and subsegmental acute pulmonary emboli without evidence of right heart strain. 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 MRI of the chest was recommended. Review of Systems Constitutional: Patient denies any fever or chills . No generalized weakness or weight loss. Abdomen: Patient denied nausea vomiting and diarrhea and abdominal pain. Cardiovascular: Patient denies any chest pain or short of breath no palpitations. Respiratory: patient denied any cough is from production. No shortness of breath Neurologic: Patient denied any numbness or tingling headache. Musculoskeletal: Patient denies any complaints of joint swelling or deformity. Skin: Negative Psychiatric: Depressed Endocrine: No heat or cold intolerance. No recent weight gain. Genitourinary: No dysuria or hematuria. All other 14 point ROS negative except the above Past Medical History Past Medical History: No Reported History Additional Past Medical History / Comment(s): Takes Metformin for weight loss, states not diabetic. History of Any Multi-Drug Resistant Organisms: None Reported Past Surgical History: Bariatric Surgery, Cholecystectomy, Orthopedic Surgery Additional Past Surgical History / Comment(s): rt ankle/foot, gastric sleeve on 09/09/16 Past Anesthesia/Blood Transfusion Reactions: No Reported Reaction Past Psychological History: Anxiety, Bipolar, Depression, Schizophrenia Smoking Status: Current every day smoker Past Alcohol Use History: None Reported Additional Past Alcohol Use History / Comment(s): quit smoking 08-29-16, Started smoking at age 15 years of age. Smokes a half of a pack per day. Past Drug Use History: None Reported - Past Family History Father Family Medical History: Hypertension Additional Family Medical History / Comment(s): Father is alive at age 57 with history of hypertension. Mother Family Medical History: Hypertension Additional Family Medical History / Comment(s): Mother is alive at age 53 with history of hypertension. Sister(s) Additional Family Medical History / Comment(s): Patient has 3 sisters with no major medical problems. Patient has 1 brother with no major medical problems. She does not have any children. Medications and Allergies Home Medications Medication Instructions Recorded Confirmed Type ARIPiprazole [Abilify] 20 mg PO QAM 06/15/16 08/28/18 History Medroxyprogesterone Acetate 150 mg SQ Q90D 06/15/16 08/28/18 History [Depo-Provera] hydrOXYzine PAMOATE [Vistaril] 50 mg PO TID 06/20/16 08/28/18 History lamoTRIgine [LaMICtal] 200 mg PO HS 08/16/16 08/28/18 History Escitalopram Oxalate 20 mg PO DAILY 09/09/16 08/28/18 History chlorproMAZINE [Thorazine] 100 mg PO HS 01/25/18 08/28/18 History Allergies Allergy/AdvReac Type Severity Reaction Status Date / Time venom-honey bee Allergy Swelling, Verified 08/28/18 18:44 [bee venom (honey bee)] difficulty breathing Physical Exam Vitals: Vital Signs Temp Pulse Pulse Resp BP BP Pulse Ox 08/29/18 06:40 129 H 108/62 08/29/18 06:29 134 H 113/60 08/29/18 06:23 137 H 118/57 08/29/18 06:15 140 H 130/54 08/29/18 00:55 98.6 F 85 16 102/58 97 08/28/18 23:16 89 22 112/63 97 08/28/18 22:19 89 24 93/59 97 08/28/18 20:39 108 H 26 H 120/62 92 L 08/28/18 19:30 97.6 F 122 H 26 H 110/61 97 08/28/18 18:03 97.8 F 128 H 16 144/90 96 Intake and Output 08/28/18 08/29/18 08/29/18 22:59 06:59 14:59 Other: Weight 142.882 kg PHYSICAL EXAMINATION: Patient is lying in the bed comfortably, no acute distress, awake alert and oriented.. HEENT: Normocephalic. Neck is supple. Pupils reactive. Nostrils clear. Oral cavity is moist. Ears reveal no drainage. Neck reveals no JVD, carotid bruits, or thyromegaly. CHEST EXAMINATION: Trachea is central. Symmetrical expansion. Lung giron clear to auscultation and percussion. CARDIAC: Normal S1, S2 with no gallops. No murmurs ABDOMEN: Soft. Bowel sounds normal. No organomegaly. No abdominal bruits. Extremities: reveal no edema. No clubbing or cyanosis Neurologically awake, alert, oriented x3 with well-coordinated movements. No focal deficits noted Skin: No rash or skin lesions. Psychiatric: Coperative. Denied any current suicidal ideation Musculoskeletal: No joint swelling or deformity. Normal range of motion. Results CBC & Chem 7: 08/29/18 16:38 08/29/18 08:37 Labs: Abnormal Lab Results - Last 24 Hours (Table) 08/28/18 08/28/18 08/29/18 Range/Units 18:32 18:32 08:37 WBC 12.5 H (3.8-10.6) k/uL Neutrophils # 10.1 H (1.3-7.7) k/uL ABG pCO2 (35-45) mmHg ABG pO2 (83-108) mmHg ABG O2 Saturation (94-97) % Chloride 108 H (98-107) mmol/L Glucose 100 H (74-99) mg/dL Total Creatine Kinase 229 H (30-135) U/L CK-MB (CK-2) 3.1 H (0.0-2.4) ng/mL 08/29/18 08/29/18 Range/Units 08:37 09:14 WBC (3.8-10.6) k/uL Neutrophils # (1.3-7.7) k/uL ABG pCO2 34 L (35-45) mmHg ABG pO2 141 H (83-108) mmHg ABG O2 Saturation 99.4 H (94-97) % Chloride 114 H (98-107) mmol/L Glucose (74-99) mg/dL Total Creatine Kinase (30-135) U/L CK-MB (CK-2) (0.0-2.4) ng/mL Thrombosis Risk Factor Assmnt - DVT/VTE Prophylaxis DVT/VTE Prophylaxis: Pharmacologic Prophylaxis ordered - Choose All That Apply Any of the Below Risk Factors Present?: Yes Each Factor Represents 1 point: Obesity (BMI >25) Other Risk Factors: No Other congenital or acquired thrombophilia - If yes, enter type in comment: No Thrombosis Risk Factor Assessment Total Risk Factor Score: 1 Thrombosis Risk Factor Assessment Level: Low Risk Assessment and Plan Assessment: Acute hypoxic respiratory failure likely secondary to pulmonary embolism Bilateral lower lobe segmental and subsegmental acute PE without right heart strain Mediastinal mass. MRI was recommended Acute thousand overdose with suicide attempt History of anxiety/depression and schizophrenia and bipolar disorder Nicotine addiction Morbid obesity BMI 50.8 Plan: Patient will be continued on oxygen therapy. Continue with heparin drip and follow closely. Pulmonary and psychiatric is following. Smoking cessation has been counseled extensively. Further recommendations based on the clinical course. Time with Patient: Greater than 30
[2018-08-30] MEDS: SODIUM CHLORIDE 0.9% 1,000 ML IV SCH ×2 (03:24→16:02)
[2018-08-30] MEDS: IPRATROPIUM-ALBUTEROL 3 ML NEB INHALATION SCH ×2 (07:27→11:36)
[2018-08-30] MEDS: BUDESONIDE 0.5 MG/2 ML NEBU INHALATION SCH ×2 (07:27→21:07)
[2018-08-30 07:53] LABS: Basophils % (A) 0 %; Eosinophils # (A) 0.2 k/uL (0-0.7); Eosinophils % (A) 3 %; HCT 43.9 % (34.0-46.0); HGB 14.4 gm/dL (11.4-16.0); Lymphocytes # (A) 1.8 k/uL (1.0-4.8); Lymphocytes % (A) 23 %; MCHC 32.8 g/dL (31.0-37.0); MCV 91.3 fL (80.0-100.0); Mean Platelet Volume 6.3; Monocytes # (A) 0.3 k/uL (0-1.0); Monocytes % (A) 3 %; Neutrophils # (A) 5.7 k/uL (1.3-7.7); Neutrophils % (A) 70 %; Platelet Count 277 k/uL (150-450); RBC 4.81 m/uL (3.80-5.40); RDW 13.3 % (11.5-15.5); WBC 8.1 k/uL (3.8-10.6)
[2018-08-30] MEDS: HEPARIN SOD,PORK IN 0.45% NACL 25,000 UNIT in 0.45% NACL 1 250ML.BAG IV SCH ×2 (08:20→16:01)
[2018-08-30 12:02] VITALS: RESP 18
--- NOTE | 2018-08-30 14:30 | P.PN ---
Subjective Progress Note Date: 08/30/18 23 year old female presented to the emergency department after taking too much thorazine. She did state she was trying to harm herself. Pulmonary is consulted because the patient became progressively more hypoxic. Upon evaluation the patient was on 6L HF NC with O2 saturation 98%. She denies chest pain and shortness of breath at this time. She does note shortness of breath earlier in the day. She has had a cough for 2 weeks. She denies fevers and chills. She denies a history of asthma and COPD. She was recently on Amoxicillin for a cold. She is not on any inhalers or nebulizers. She denies wheezing. She does smoke 1/2 ppd x 7 years. She denies a history of PE or DVT. She denies recent travel, long car rides, recent surgeries, prolonged bed rest. She is on Depo IM for control. 08/30/2017: Patient seen and examined. Patient is sitting up in a chair on room air. She states she does have a little bit of shortness of breath. Her CT angiogram was positive for bilateral subsegmental pulmonary embolisms. The patient is currently on a heparin drip. Her CT results are discussed at length including her mediastinal mass. She is understanding that the MRI cannot be done at this facility and will be arranged in an open MRI prior to discharge. Objective - Vital Signs Vital signs: Vital Signs Temp 97.8 F 08/30/18 12:00 Pulse 121 H 08/30/18 12:00 Resp 18 08/30/18 12:00 BP 128/84 08/30/18 12:00 Pulse Ox 98 08/30/18 12:00 Intake & Output 08/29/18 08/30/18 08/30/18 18:59 06:59 18:59 Intake Total 925.000 360 Output Total 510 Balance 415.000 360 Weight 143.7 kg Intake: Intake, IV Titration 925.000 Amount Heparin Sod,Pork in 0.45% 250.000 NaCl 25,000 unit In 0.45 % NaCl 1 250ml.bag @ 16 UNITS/KG/HR 22.86 mls/hr IV .[id number] [facility] Rx#: [id number] Sodium Chloride 0.9% 1, 675 000 ml @ 75 mls/hr IV . 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
[2018-08-30] MEDS ORDERED: IPRATROPIUM-ALBUTEROL 3 ML NEB INHALATION PRN (14:36)
[2018-08-30] MEDS: APIXABAN 5 MG TAB PO SCH ×2 (16:01→21:28)
--- NOTE | 2018-08-30 22:03 | P.PN ---
Subjective Progress Note Date: 08/30/18 Principal diagnosis: Acute bilateral pulmonary embolism Mediastinal mass Acute hypoxic respiratory failure Acute thorazone over dose Patient is a 23-year-old female with a known history of Anxiety, Bipolar, Depression, Schizophrenia, currently everyday smoker and history of bariatric surgery/sleeve gastrectomy was initially presented to ER due to Thorazine overdose. Patient does have frozen prescription. Patient took multiple pills around 5 PM yesterday. patient says that she is upset with herself and try to commit suicide. As per EMS report patient was able to vomit up 18 pills by the time she comes to ER. Patient otherwise denied any fever or chills. No cough or sputum production. Denied any recent illnesses. Denied any alcohol abuse. Patient is otherwise everyday smoker. Patient was initially admitted to MedSurg unit. Patient became hypoxic and went into respiratory failure. Patient was transferred to telemetry unit. Patient does not have any history of asthma or COPD. Patient was not been wheezing. Patient is requiring high flow nasal cannula oxygen. Patient denied any recent illnesses. No recent travel. Initial EKG showed sinus tachycardia with ventricular rate of 131. No ST T wave changes. Chest x-ray showed no acute cardio pulmonary process UDS negative Influenza negative CT angiogram to chest showed small incompletely occlusive lower lobe segmental and subsegmental acute pulmonary emboli without evidence of right heart strain. 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 MRI of the chest was recommended. 08/30/2018 Patient denied any complains of chest pain. Shortness of breath improved. Otherwise patient is currently saturating well on room air. Heparin drip will be discontinued and patient will be started on Eliquis, 10 mg twice a day for 7 days followed by 5 mg twice a day. Patient is able to sit in the chair. No fever no chills. No headache or dizziness or lightheadedness. Pulmonary is following. Current medications reviewed. Objective - Vital Signs Vital signs: Vital Signs Temp 98.2 F 08/30/18 21:09 Pulse 88 08/30/18 21:22 Resp 18 08/30/18 21:09 BP 129/78 08/30/18 21:09 Pulse Ox 96 08/30/18 21:09 Intake & Output 08/30/18 08/30/18 08/31/18 06:59 18:59 06:59 Intake Total 925.000 360 Output Total 356 866 3734 Balance 415.000 -540 -1400 Weight 143.7 kg Intake: Intake, IV Titration 925.000 Amount Heparin Sod,Pork in 0.45% 250.000 NaCl 25,000 unit In 0.45 % NaCl 1 250ml.bag @ 16 UNITS/KG/HR 22.86 mls/hr IV .[id number] [facility] Rx#: [id number] Sodium Chloride 0.9% 1, 675 000 ml @ 75 mls/hr IV . [id number] [facility] Rx#:[id number] Oral 360 Output: Urine 428 531 0165 Other: Voiding Method Toilet Toilet # Voids 1 - Exam PHYSICAL EXAMINATION: Patient is lying in the bed comfortably, no acute distress, awake alert and oriented.. HEENT: Normocephalic. Neck is supple. Pupils reactive. Nostrils clear. Oral cavity is moist. Ears reveal no drainage. Neck reveals no JVD, carotid bruits, or thyromegaly. CHEST EXAMINATION: Trachea is central. Symmetrical expansion. Lung giron clear to auscultation and percussion. CARDIAC: Normal S1, S2 with no gallops. No murmurs ABDOMEN: Soft. Bowel sounds normal. No organomegaly. No abdominal bruits. Extremities: reveal no edema. No clubbing or cyanosis Neurologically awake, alert, oriented x3 with well-coordinated movements. No focal deficits noted Skin: No rash or skin lesions. Psychiatric: Coperative. Nonsuicidal Musculoskeletal: No joint swelling or deformity. Normal range of motion. - Labs CBC & Chem 7: 08/30/18 07:29 08/29/18 08:37 Labs: Abnormal Lab Results - Last 24 Hours (Table) 08/29/18 08/30/18 Range/Units 23:16 07:29 APTT 114.3 H* 33.7 H (22.0-30.0) sec Assessment and Plan Assessment: Acute hypoxic respiratory failure likely secondary to pulmonary embolism Bilateral lower lobe segmental and subsegmental acute PE without right heart strain Mediastinal mass. MRI was recommended Acute thousand overdose with suicide attempt History of anxiety/depression and schizophrenia and bipolar disorder Nicotine addiction Morbid obesity BMI 50.8 Plan: Patient will be continued on oxygen therapy. Continued with heparin drip initially and patient was started on oral anticoagulants. Patient may need inpatient psychiatric transfer once cleared medically.. Pulmonary and psychiatric is following. Smoking cessation has been counseled extensively. Further recommendations based on the clinical course. Time with Patient: Greater than 30
[2018-08-31] MEDS: SODIUM CHLORIDE 0.9% 1,000 ML IV SCH ×2 (04:47→18:58)
[2018-08-31] MEDS: BUDESONIDE 0.5 MG/2 ML NEBU INHALATION SCH (07:31)
[2018-08-31 07:56] VITALS: BP 135/78
[2018-08-31] MEDS: APIXABAN 5 MG TAB PO SCH (09:48)
--- NOTE | 2018-08-31 12:31 | P.PN ---
Subjective Progress Note Date: 08/31/18 23 year old female presented to the emergency department after taking too much thorazine. She did state she was trying to harm herself. Pulmonary is consulted because the patient became progressively more hypoxic. Upon evaluation the patient was on 6L HF NC with O2 saturation 98%. She denies chest pain and shortness of breath at this time. She does note shortness of breath earlier in the day. She has had a cough for 2 weeks. She denies fevers and chills. She denies a history of asthma and COPD. She was recently on Amoxicillin for a cold. She is not on any inhalers or nebulizers. She denies wheezing. She does smoke 1/2 ppd x 7 years. She denies a history of PE or DVT. She denies recent travel, long car rides, recent surgeries, prolonged bed rest. She is on Depo IM for control. 08/30/2017: Patient seen and examined. Patient is sitting up in a chair on room air. She states she does have a little bit of shortness of breath. Her CT angiogram was positive for bilateral subsegmental pulmonary embolisms. The patient is currently on a heparin drip. Her CT results are discussed at length including her mediastinal mass. She is understanding that the MRI cannot be done at this facility and will be arranged in an open MRI prior to discharge. 08/31/2018: Patient seen and examined sitting up in the chair on room air. She denies shortness of breath and chest pain. She states she is feeling well overall. She has no cough, fevers, chills. She denies any needs or complaints at this time. Objective - Vital Signs Vital signs: Vital Signs Temp 97.9 F 08/31/18 07:47 Pulse 114 H 08/31/18 07:47 Resp 18 08/31/18 08:35 BP 135/78 08/31/18 07:47 Pulse Ox 97 08/31/18 07:47 Intake & Output 08/30/18 08/31/18 08/31/18 18:59 06:59 18:59 Intake Total 360 750 240 Output Total 900 1400 Balance -540 -650 240 Weight 144.2 kg Intake: Intake, IV Titration 750 Amount Sodium Chloride 0.9% 1, 750 000 ml @ 75 mls/hr IV . [id number] [facility] Rx#:[id number] Oral 360 240 Output: Urine 900 1400 Stool 0 Other: Voiding Method Toilet Toilet # Voids 1 0 # Bowel Movements 0 - Exam General: A+OX3, NAD, obese CV: RRR, s1/s2, tachy Lungs: CTAB, no w/r/r Abd: soft, NT/ND, +BS Ext: no edema - Labs CBC & Chem 7: 08/30/18 07:29 08/29/18 08:37 Assessment and Plan Assessment: Acute hypoxic respiratory failure Bilateral subsegmental PEs Mediastinal mass concerning for thymoma Morbid obesity Active tobacco abuse Overdose and suicidal ideations Hx anxiety, bipolar, schizophrenia O2 to maintain saturation > or = 90% CTA of the chest reviewed with radiologist, subsegmental PEs, mediastinal mass MRI chest to further characterize mass - can be done as outpatient in open MRI Weight loss is recommended Avoid hormonal control options Smoking cessation is highly recommended Heparin drip initiated, recommend NOAC for snf AC Monitor labs
[2018-08-31 13:11] VITALS: PULSE 88; TEMP 98.2
--- NOTE | 2018-08-31 16:15 | P.DS ---
Providers Date of admission: 08/28/18 22:59 Expected date of discharge: 08/31/18 Attending physician: Chad Saavedra Consults: 08/28/18 22:49 Consult Physician Routine Consulting Provider: Eric Sanabria Consult Reason/Comments: Thorazine overdose; Suicide attempt Do you want consulting provider notified?: Already Contacted 08/29/18 07:51 Consult Physician Stat Consulting Provider: Ivette Bangura Consult Reason/Comments: shortness of breath Do you want consulting provider notified?: Yes Primary care physician: Antione Vincent [facility] Course: Discharge diagnosis Acute hypoxic respiratory failure likely secondary to pulmonary embolism Bilateral lower lobe segmental and subsegmental acute PE without right heart strain Mediastinal mass. MRI was recommended Acute thousand overdose with suicide attempt History of anxiety/depression and schizophrenia and bipolar disorder Nicotine addiction Morbid obesity BMI 50.8 Hospital course Patient is a 23-year-old female with a known history of Anxiety, Bipolar, Depression, Schizophrenia, currently everyday smoker and history of bariatric surgery/sleeve gastrectomy was initially presented to ER due to Thorazine overdose. Patient does have frozen prescription. Patient took multiple pills around 5 PM yesterday. patient says that she is upset with herself and try to commit suicide. As per EMS report patient was able to vomit up 18 pills by the time she comes to ER. Patient otherwise denied any fever or chills. No cough or sputum production. Denied any recent illnesses. Denied any alcohol abuse. Patient is otherwise everyday smoker. Patient was initially admitted to MedSurg unit. Patient became hypoxic and went into respiratory failure. Patient was transferred to telemetry unit. Patient does not have any history of asthma or COPD. Patient was not been wheezing. Patient is requiring high flow nasal cannula oxygen. Patient denied any recent illnesses. No recent travel. Initial EKG showed sinus tachycardia with ventricular rate of 131. No ST T wave changes. Chest x-ray showed no acute cardio pulmonary process UDS negative Influenza negative CT angiogram to chest showed small incompletely occlusive lower lobe segmental and subsegmental acute pulmonary emboli without evidence of right heart strain. 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 MRI of the chest was recommended. 08/30/2018 Patient denied any complains of chest pain. Shortness of breath improved. Otherwise patient is currently saturating well on room air. Heparin drip will be discontinued and patient will be started on Eliquis, 10 mg twice a day for 7 days followed by 5 mg twice a day. Patient is able to sit in the chair. No fever no chills. No headache or dizziness or lightheadedness. Pulmonary is following. 08/31/2018 Patient denied any new complaints today. No complaints of chest pain or shortness of breath. No nausea vomiting or abdominal pain. Patient will be continued on Eliquis for 6 months. Recommends to follow with pulmonary clinic for mediastinal mass and MRI. Continue with Eliquis 10 mg twice a day until and continue with 5 mg twice a day from 09/06/2018. Saturating well on room air. Tachycardia resolved. Patient is otherwise medically cleared to be transferred to inpatient psychiatric unit. PHYSICAL EXAMINATION: Patient is lying in the bed comfortably, no acute distress, awake alert and oriented.. HEENT: Normocephalic. Neck is supple. Pupils reactive. Nostrils clear. Oral cavity is moist. Ears reveal no drainage. Neck reveals no JVD, carotid bruits, or thyromegaly. CHEST EXAMINATION: Trachea is central. Symmetrical expansion. Lung giron clear to auscultation and percussion. CARDIAC: Normal S1, S2 with no gallops. No murmurs ABDOMEN: Soft. Bowel sounds normal. No organomegaly. No abdominal bruits. Extremities: reveal no edema. No clubbing or cyanosis Neurologically awake, alert, oriented x3 with well-coordinated movements. No focal deficits noted Skin: No rash or skin lesions. Psychiatric: Coperative. Nonsuicidal Musculoskeletal: No joint swelling or deformity. Normal range of motion. Vital Signs 08/31/18 08/31/18 08:35 12:00 Temperature 98.2 F Pulse Rate [ 88 Pulse Oximetery ] Respiratory 18 18 Rate Blood Pressure 135/78 [Left Arm] O2 Sat by Pulse 98 Oximetry Patient Condition at Discharge: Serious Plan - Discharge Summary Discharge Rx Participant: Yes New Discharge Prescriptions: New Apixaban [Eliquis] 10 mg PO BID 6 Days #12 tab Apixaban [Eliquis] 5 mg PO BID #60 tab Continue ARIPiprazole [Abilify] 20 mg PO QAM Medroxyprogesterone Acetate [Depo-Provera] 150 mg SQ Q90D hydrOXYzine PAMOATE [Vistaril] 50 mg PO TID lamoTRIgine [LaMICtal] 200 mg PO HS Escitalopram Oxalate 20 mg PO DAILY chlorproMAZINE [Thorazine] 100 mg PO HS Discharge Medication List ARIPiprazole [Abilify] 20 mg PO QAM 06/15/16 [History] Medroxyprogesterone Acetate [Depo-Provera] 150 mg SQ Q90D 06/15/16 [History] hydrOXYzine PAMOATE [Vistaril] 50 mg PO TID 06/20/16 [History] lamoTRIgine [LaMICtal] 200 mg PO HS 08/16/16 [History] Escitalopram Oxalate 20 mg PO DAILY 09/09/16 [History] chlorproMAZINE [Thorazine] 100 mg PO HS 01/25/18 [History] Apixaban [Eliquis] 5 mg PO BID #60 tab 08/31/18 [Rx] Apixaban [Eliquis] 10 mg PO BID 6 Days #12 tab 08/31/18 [Rx] Follow up Appointment(s)/Referral(s): Antione Kaur DO [Primary Care Provider] - 1-2 days Discharge Disposition: TRANSFER TO PSYCH HOSP/UNIT
== END 2018-08-31 19:10 | DRG 175 ==
LOC: EC 17:54 → 4SSUR 22:59 → 3SCARD 08-29 07:44 → UNDODISIN 08-30 20:33
PROVIDERS: ADMIT Hospitalist; ATTEND Hospitalist
DX: I26.99 Other pulmonary embolism without acute cor pulmonale (principal); J96.01 Acute respiratory failure with hypoxia; Z68.43 Body mass index [BMI] 50.0-59.9, adult; E66.01 Morbid (severe) obesity due to excess calories; F20.9 Schizophrenia, unspecified; T43.3X2A Poisoning by phenothiazine antipsychotics and neuroleptics, intentional self-harm, initial encounter; F17.210 Nicotine dependence, cigarettes, uncomplicated; F41.9 Anxiety disorder, unspecified; R22.2 Localized swelling, mass and lump, trunk; F32.9 Major depressive disorder, single episode, unspecified; Z79.899 Other long term (current) drug therapy; Z91.030 Bee allergy status; Z90.49 Acquired absence of other specified parts of digestive tract; Z98.84 Bariatric surgery status; Z82.49 Family history of ischemic heart disease and other diseases of the circulatory system; Y92.9 Unspecified place or not applicable
CPT/HCPCS: 36415; 36600; 71045; 71275; 80048; 80053; 80306; 80320; 81003; 81025; 82075; 82550; 82553; 82805; 83520; 83735; 84100; 85025; 85610; 85730; 87502; 93005; 94640; 94760; 96360; 96361; 99285

== ENCOUNTER 2018-08-31 19:14 | Inpatient (IN) | payer BC, MEDICAID ==
[2018-09-01] MEDS ORDERED: MAG HYDROX/AL HYDROX/SIMETH 30 ML CUP PO PRN (00:23)
[2018-09-01] MEDS ORDERED: MAGNESIUM HYDROXIDE 2,400 MG/10 ML CUP PO PRN (00:23)
[2018-09-01] MEDS ORDERED: APIXABAN 5 MG TAB PO SCH ×2 (00:26→00:42)
[2018-09-01] MEDS ORDERED: LORazepam 2 MG/ML INJ IM PRN (00:27)
--- NOTE | 2018-09-01 07:06 | P.MDCNMH ---
History of Present Illness H&P Date: 09/01/18 Chief Complaint: suicidal ideation 23-year-old female with history of anxiety depression schizophrenia Patient was recently hospitalized under [facility] service for drug overdose and suicidal ideation. During the hospital course she was found to be hypoxic and was diagnosed with acute pulmonary embolism bilateral lower lobe segmental. And subsegmental. Patient admitted that she overdosed on Thorazine took over 40 pills and a suicidal attempt. She was brought to the hospital by EMS and she threw up and Route she was admitted under [facility] hospitalist service and was discharged yesterday to the mental health unit. She was initially treated with heparin drip and then transitioned to Eliquis Patient currently denies any medical complaints denies any chest pain trouble breathing fevers or chills. She reports some dry nonproductive cough over the past 3 weeks Review of Systems Pertinent positives as noted in HPI. All other systems were reviewed and are negative Past Medical History Past Medical History: No Reported History Additional Past Medical History / Comment(s): Takes Metformin for weight loss, states not diabetic. History of Any Multi-Drug Resistant Organisms: None Reported Past Surgical History: Bariatric Surgery, Cholecystectomy, Orthopedic Surgery Additional Past Surgical History / Comment(s): rt ankle/foot, gastric sleeve on 09/09/16 Past Anesthesia/Blood Transfusion Reactions: No Reported Reaction Past Psychological History: Anxiety, Bipolar, Depression, Schizophrenia Smoking Status: Current every day smoker Past Alcohol Use History: None Reported Additional Past Alcohol Use History / Comment(s): quit smoking 08-29-16, Started smoking at age 15 years of age. Smokes a half of a pack per day. Past Drug Use History: None Reported - Past Family History Father Family Medical History: Hypertension Additional Family Medical History / Comment(s): Father is alive at age 57 with history of hypertension. Mother Family Medical History: Hypertension Additional Family Medical History / Comment(s): Mother is alive at age 53 with history of hypertension. Sister(s) Additional Family Medical History / Comment(s): Patient has 3 sisters with no major medical problems. Patient has 1 brother with no major medical problems. She does not have any children. Medications and Allergies Home Medications Medication Instructions Recorded Confirmed Type ARIPiprazole [Abilify] 20 mg PO QAM 06/15/16 08/31/18 History Medroxyprogesterone Acetate 150 mg SQ Q90D 06/15/16 08/31/18 History [Depo-Provera] hydrOXYzine PAMOATE [Vistaril] 50 mg PO TID 06/20/16 08/31/18 History lamoTRIgine [LaMICtal] 200 mg PO HS 08/16/16 08/31/18 History Escitalopram Oxalate 20 mg PO DAILY 09/09/16 08/31/18 History chlorproMAZINE [Thorazine] 100 mg PO HS 01/25/18 08/31/18 History Apixaban [Eliquis] 5 mg PO BID #60 tab 08/31/18 08/31/18 Rx Apixaban [Eliquis] 10 mg PO BID 6 Days #12 tab 08/31/18 08/31/18 Rx Allergies Allergy/AdvReac Type Severity Reaction Status Date / Time venom-honey bee Allergy Swelling, Verified 08/31/18 20:52 [bee venom (honey bee)] difficulty breathing Physical Exam Vitals: Vital Signs Temp Pulse Resp BP 09/01/18 06:42 97.7 F 92 16 140/71 08/31/18 19:24 97.7 F 90 18 129/81 Intake and Output 08/31/18 08/31/18 09/01/18 14:59 22:59 06:59 Other: Weight 142.448 kg Constitutional: No acute distress, conversant, pleasant, obese Eyes: Anicteric sclerae, moist conjunctiva, no lid-lag Pupils equal round reactive to light ENMT: NC/AT Oropharynx clear, no erythema, or exudates Neck: Supple, FROM, no masses, or JVD No carotid bruits No thyromegaly Lungs: Clear to auscultation Clear to percussion Normal respiratory effort, no accessory muscle use Cardiovascular: Heart regular in rate and rhythm, No murmurs, gallops, or rubs No peripheral edema Abdominal: Soft Nontender, no guarding, rebound or rigidity Abdomen moving with respiration Normoactive bowel sounds No hepatomegaly, No splenomegaly No palpable mass No abdominal wall hernia noted Skin: Normal temperature, tone, texture, turgor No induration No subcutaneous nodules No rash, lesions No ulcers Extremities: No digital cyanosis No clubbing Pedal pulses intact and symmetrical Radial pulses intact and symmetrical No calf tenderness Psychiatric: Alert and oriented to person, place and time Appropriate affect Poor judgment Neuro Muscles Strength 5/5 in all 4 extremities Sensation to light touch grossly present throughout Cranial nerves II-XII grossly intact No focal sensory deficits Lymphatics: no palpable cervical or supraclavicular , or inguinal lymph nodes Cranial Nerve Examination - Cranial Nerves Cranial Nerve II- Optic: Intact Cranial Nerve III- Oculomotor: Intact Cranial Nerve IV- Trochlear: Intact Cranial Nerve V- Trigeminal: Intact Cranial Nerve - Abducens: Intact Cranial Nerve VII- Facial: Intact Cranial Nerve VIII- Auditory: Intact Cranial Nerve IX- Glossopharyngeal: Intact Cranial Nerve X- Vagus: Intact Cranial Nerve XI- Accessory: Intact Cranial Nerve XII- Hypoglossal: Intact Assessment and Plan Assessment: 23-year-old female was admitted to the hospital couple days ago under [facility] hospitalist service due to overdose on Thorazine later she was diagnosed with acute bilateral lower PE she was treated with heparin drip and then transitioned into Eliquis she was discharged yesterday from their service and admitted under the mental health unit for suicidal ideation and management of her depression and schizophrenia. Medicine was consulted for medical management Plan: Acute bilateral lower segmental and subsegmental PE Continue with Eliquis 10 mg twice a day, transition to Eliquis 5 mg twice a day on 09/06/2017 Somatic control of the cough Suicidal ideation Depression and schizophrenia Management per psych Thank you for allowing us to participate in the care of this patient. We will follow peripherally. Do not hesitate to contact us with questions. Someone can be reached from the [facility] hospitalist group at all hours of the day at [phone].
[2018-09-01] MEDS ORDERED: BENZONATATE 100 MG CAP PO PRN (07:08)
[2018-09-01] MEDS: APIXABAN 5 MG TAB PO SCH ×2 (08:35→20:38)
--- NOTE | 2018-09-01 11:21 | P.HP ---
Psychiatric H&P - . H&P Date: 09/01/18 History & Physical: Allergies Allergy/AdvReac Type Severity Reaction Status Date / Time venom-honey bee Allergy Swelling, Verified 08/31/18 20:52 [bee venom (honey bee)] difficulty breathing Vital Signs Temp 97.7 F 09/01/18 06:42 Pulse 92 09/01/18 06:42 Resp 16 09/01/18 06:42 BP 140/71 09/01/18 06:42 Pulse Ox Intake & Output 08/31/18 09/01/18 09/01/18 18:59 06:59 18:59 Weight 142.448 kg Laboratory Last Values Triglycerides 63 mg/dL (<150) 08/28/18 18:32 Cholesterol 137 mg/dL (<200) 08/28/18 18:32 LDL Cholesterol, Calc 80 mg/dL (0-99) 08/28/18 18:32 HDL Cholesterol 44 mg/dL (40-60) 08/28/18 18:32 TSH 4.680 mIU/L (0.465-4.680) 08/28/18 18:32 Assessment and Plan Assessment: 23-year-old female patient presents to emergency department for evaluation after overdosing on her Thorazine prescription. Family member states that she took the medications around 5 PM. Patient states she does remember how many pills she took. EMS reported that she did vomit up 18 pills upon their arrival around 1800. Patient states she feels very tired right now denies any other symptoms. She denies any headache, blurred vision, double vision, dizziness, weakness, nausea, or vomiting. Patient states this was a medication prescribed to her. She denies taking other medications. Denies any alcohol or drug use. Patient states she did take the medication in attempt to kill herself. Patient states she has an extensive mental health history and has tried to commit suicide in the past. She has been admitted for inpatient mental health treatment in the past as well. Patient denies any recent rash, fever, chills, shortness breath, chest pain, abdominal pain, diarrhea, constipation, back pain , numbness, tingling, hematuria, dysuria, urinary urgency, urinary frequency, or any other complaints. - Related Data Home Medications Medication Instructions Recorded Confirmed ARIPiprazole [Abilify] 20 mg PO QAM 06/15/16 08/28/18 Medroxyprogesterone Acetate 150 mg SQ Q90D 06/15/16 08/28/18 [Depo-Provera] hydrOXYzine PAMOATE [Vistaril] 50 mg PO TID 06/20/16 08/28/18 lamoTRIgine [LaMICtal] 200 mg PO HS 08/16/16 08/28/18 Escitalopram Oxalate 20 mg PO DAILY 09/09/16 08/28/18 chlorproMAZINE [Thorazine] 100 mg PO HS 01/25/18 08/28/18 Allergies Allergy/AdvReac Type Severity Reaction Status Date / Time venom-honey bee Allergy Swelling, Verified 08/28/18 18:44 [bee venom (honey bee)] difficulty breathing Past Medical History Past Medical History: No Reported History Additional Past Medical History / Comment(s): Takes Metformin for weight loss, states not diabetic. History of Any Multi-Drug Resistant Organisms: None Reported Past Surgical History: Bariatric Surgery, Cholecystectomy, Orthopedic Surgery Additional Past Surgical History / Comment(s): rt ankle/foot, gastric sleeve on 09/09/16 Past Anesthesia/Blood Transfusion Reactions: No Reported Reaction Past Psychological History: Anxiety, Bipolar, Depression, Schizophrenia Smoking Status: Current every day smoker Past Alcohol Use History: None Reported Past Drug Use History: None Reported - Past Family History Father Family Medical History: Hypertension Additional Family Medical History / Comment(s): Father is alive at age 57 with history of hypertension. Mother Family Medical History: Hypertension Additional Family Medical History / Comment(s): Mother is alive at age 53 with history of hypertension. Sister(s) Additional Family Medical History / Comment(s): Patient has 3 sisters with no major medical problems. Patient has 1 brother with no major medical problems. She does not have any children. FAMILY HISTORY OF PSYCHIATRIC ILLNESSES: She stated her grandmother and her mother's aunt had a similar kind of problems. She denies any history of alcohol or drug abuse or history of suicide in the family. DEVELOPMENTAL HISTORY AND CHILDHOOD: This patient was academically behind in every single subject in the school. She denies any history of any type of abuse. She dropped out of school in 10th grade. Her comprehension is a poor. 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 Mental Status Examination - General Appearance: [ disheveled, appears older than stated age Speech/Language: [ slow, rambled, monotone, expressive, soft] Attitude/Behavior: [cooperative Mood: [ depressed, anxious, irritable, fearful, hopelessness] Affect: [ labile, blunted constricted Orientation: [time, person, place situation] Thought Content: [ delusions Risk Factors: [SHE IS CURRENTLY suicidal (ideations, plan), and/or Homicidal ( ideations, plan), other] Perception: [hallucinations (auditory Thought Processes: [concrete, circumstantial Concentration/Attention Span: [ impaired] [Per observation and interview with the patient] Recent Memory: [ impaired] [0 out of 3 in 3 minutes] Remote Memory: [wnl] [past events, as related history] Intelligence: [below average] [based on history, based on vocabulary, syntax, grammar, and content] Judgement: [fair] [per patient's behavior/history of present illness] Insight: [ fair] [understanding severity of illness/history of present illness Psychiatric impression:major depressive disorder-with acute psychosis Plan: This is a 23-year-old single female who is admitted formal voluntary after a severe overdose due to impulsive reasons. She's been off her medicines for almost 18 months. She will be on 15 minute checks and usual moody milieu therapy protocol. She'll be evaluated by medicine, psychiatry, nursing staff, social work and occupational therapy. She will be expected to go to groups and integrate in moody milieu therapeutic environment in a positive manner whereby she'll be taking her medications. She will be started on Lamictal 50 mg by mouth daily at bedtime, Abilify 5 mg by mouth daily at bedtime and Lexapro 20 mg by mouth daily. (1) Major depressive disorder, recurrent episode, severe, with psychosis Current Visit: Yes Status: Acute Code(s): F33.3 - MAJOR DEPRESSV DISORDER, RECURRENT, SEVERE W PSYCH SYMPTOMS SNOMED Code(s): 189112614 Time with Patient: Greater than 30
[2018-09-01] MEDS: LORazepam 1 MG TAB PO PRN ×2 (11:27→21:16)
[2018-09-01 20:16] LABS: Hemoglobin A1C 5.1 % (4.0-6.0)
[2018-09-01] MEDS ORDERED: lamoTRIgine 25 MG TAB PO SCH (21:00)
[2018-09-01] MEDS: ACETAMINOPHEN TAB 325 MG TAB PO PRN (21:17)
[2018-09-02] MEDS: ARIPiprazole 5 MG TAB PO SCH (07:55)
[2018-09-02] MEDS: ESCITALOPRAM 20 MG TAB PO SCH (07:55)
[2018-09-02] MEDS: APIXABAN 5 MG TAB PO SCH ×2 (07:56→20:19)
--- NOTE | 2018-09-02 11:55 | P.PN ---
Subjective Progress Note Date: 09/02/18 Principal diagnosis: major depressive disorder-with acute psychosis 09/02/2018: Chart reviewed and discussed in detail with nursing staff and patient states that she feels less depressed today, going to groups on a regular basis, no side effects of the medicines noted and chief complaint today other than resolving depression and anxiety. Objective - Vital Signs Vital signs: Vital Signs Temp 98.0 F 09/02/18 02:10 Pulse 132 H 09/02/18 02:10 Resp 16 09/01/18 06:42 BP 128/73 09/02/18 02:10 Pulse Ox 98 09/02/18 02:10 Intake & Output 09/01/18 09/02/18 09/02/18 18:59 06:59 18:59 Weight 141.6 kg Assessment and Plan Assessment: 23-year-old female patient presents to emergency department for evaluation after overdosing on her Thorazine prescription. Family member states that she took the medications around 5 PM. Patient states she does remember how many pills she took. EMS reported that she did vomit up 18 pills upon their arrival around 1800. Patient states she feels very tired right now denies any other symptoms. She denies any headache, blurred vision, double vision, dizziness, weakness, nausea, or vomiting. Patient states this was a medication prescribed to her. She denies taking other medications. Denies any alcohol or drug use. Patient states she did take the medication in attempt to kill herself. Patient states she has an extensive mental health history and has tried to commit suicide in the past. She has been admitted for inpatient mental health treatment in the past as well. Patient denies any recent rash, fever, chills, shortness breath, chest pain, abdominal pain, diarrhea, constipation, back pain , numbness, tingling, hematuria, dysuria, urinary urgency, urinary frequency, or any other complaints. Mental Status Examination - General Appearance: [ disheveled, appears older than stated age Speech/Language: [ slow, rambled, monotone, expressive, soft] Attitude/Behavior: [cooperative Mood: [ depressed, anxious, irritable, fearful, hopelessness] Affect: [ labile, blunted constricted Orientation: [time, person, place situation] Thought Content: [ delusions Risk Factors: [SHE IS CURRENTLY suicidal (ideations, plan), and/or Homicidal ( ideations, plan), other] Perception: [hallucinations (auditory Thought Processes: [concrete, circumstantial Concentration/Attention Span: [ impaired] [Per observation and interview with the patient] Recent Memory: [ impaired] [0 out of 3 in 3 minutes] Remote Memory: [wnl] [past events, as related history] Intelligence: [below average] [based on history, based on vocabulary, syntax, grammar, and content] Judgement: [fair] [per patient's behavior/history of present illness] Insight: [ fair] [understanding severity of illness/history of present illness Psychiatric impression:major depressive disorder-with acute psychosis Plan: This is a 23-year-old single female who is admitted formal voluntary after a severe overdose due to impulsive reasons. She's been off her medicines for almost 18 months. She will be on 15 minute checks and usual moody milieu therapy protocol. She'll be evaluated by medicine, psychiatry, nursing staff, social work and occupational therapy. She will be expected to go to groups and integrate in moody milieu therapeutic environment in a positive manner whereby she'll be taking her medications. She will be started on Lamictal 50 mg by mouth daily at bedtime, Abilify 5 mg by mouth daily at bedtime and Lexapro 20 mg by mouth daily. 09/02/2018: She is maintained on 15 minute checks and usual moody milieu therapeutic protocol. Patient is continued to be evaluated by medicine and remains on her medical medications. Her Lexapro dose was well tolerated as well as Abilify 5 mg by mouth daily at bedtime and will increase her Lamictal to 100 mg 2 daily at bedtime today. She is neatly dressed and appropriately groomed and active within the moody milieu therapeutic environment. (1) Major depressive disorder, recurrent episode, severe, with psychosis Current Visit: Yes Status: Acute Code(s): F33.3 - MAJOR DEPRESSV DISORDER, RECURRENT, SEVERE W PSYCH SYMPTOMS SNOMED Code(s): 115334522 Time with Patient: Less than 30
[2018-09-02] MEDS: LORazepam 1 MG TAB PO PRN (18:09)
[2018-09-02] MEDS ORDERED: lamoTRIgine 100 MG TAB PO SCH (21:00)
[2018-09-03] MEDS: LORazepam 1 MG TAB PO PRN (03:18)
[2018-09-03] MEDS: ESCITALOPRAM 20 MG TAB PO SCH (08:06)
[2018-09-03] MEDS: APIXABAN 5 MG TAB PO SCH ×2 (08:07→20:02)
[2018-09-03] MEDS: ARIPiprazole 5 MG TAB PO SCH (08:07)
[2018-09-03 14:54] VITALS: BMI 50.3
[2018-09-03] MEDS: ACETAMINOPHEN TAB 325 MG TAB PO PRN (20:03)
[2018-09-03] MEDS ORDERED: lamoTRIgine 100 MG TAB PO SCH (21:00)
[2018-09-04 01:51] VITALS: BP 127/79; PULSE 107; RESP 16; TEMP 98.5
[2018-09-04] MEDS: ACETAMINOPHEN TAB 325 MG TAB PO PRN (04:37)
[2018-09-04] MEDS: APIXABAN 5 MG TAB PO SCH (08:03)
[2018-09-04] MEDS: ESCITALOPRAM 20 MG TAB PO SCH (08:04)
[2018-09-04] MEDS: ARIPiprazole 5 MG TAB PO SCH (08:04)
--- NOTE | 2018-09-04 12:00 | P.DS ---
Providers Date of admission: 08/31/18 19:16 Expected date of discharge: 09/04/18 Attending physician: Eric Sanabria DO Consults: 09/01/18 00:23 Consult Physician Routine Consulting Provider: Homero Nielsen Consult Reason/Comments: Medical Management Do you want consulting provider notified?: Already Contacted Primary care physician: Antione Kaur - Discharge Diagnosis(es) (1) Major depressive disorder, recurrent episode, severe, with psychosis 23-year-old female patient presents to emergency department for evaluation after overdosing on her Thorazine prescription. Family member states that she took the medications around 5 PM. Patient states she does remember how many pills she took. EMS reported that she did vomit up 18 pills upon their arrival around 1800. Patient states she feels very tired right now denies any other symptoms. She denies any headache, blurred vision, double vision, dizziness, weakness, nausea, or vomiting. Patient states this was a medication prescribed to her. She denies taking other medications. Denies any alcohol or drug use. Patient states she did take the medication in attempt to kill herself. Patient states she has an extensive mental health history and has tried to commit suicide in the past. She has been admitted for inpatient mental health treatment in the past as well. Patient denies any recent rash, fever, chills, shortness breath, chest pain, abdominal pain, diarrhea, constipation, back pain , numbness, tingling, hematuria, dysuria, urinary urgency, urinary frequency, or any other complaints. Past Medical History Past Medical History: No Reported History Additional Past Medical History / Comment(s): Takes Metformin for weight loss, states not diabetic. History of Any Multi-Drug Resistant Organisms: None Reported Past Surgical History: Bariatric Surgery, Cholecystectomy, Orthopedic Surgery Additional Past Surgical History / Comment(s): rt ankle/foot, gastric sleeve on 09/09/16 Past Anesthesia/Blood Transfusion Reactions: No Reported Reaction Past Psychological History: Anxiety, Bipolar, Depression, Schizophrenia Smoking Status: Current every day smoker Past Alcohol Use History: None Reported Additional Past Alcohol Use History / Comment(s): quit smoking 08-29-16, Started smoking at age 15 years of age. Smokes a half of a pack per day. Past Drug Use History: None Reported - Past Family History Father Family Medical History: Hypertension Additional Family Medical History / Comment(s): Father is alive at age 57 with history of hypertension. Mother Family Medical History: Hypertension Additional Family Medical History / Comment(s): Mother is alive at age 53 with history of hypertension. Sister(s) Additional Family Medical History / Comment(s): Patient has 3 sisters with no major medical problems. Patient has 1 brother with no major medical problems. She does not have any children. Medications and Allergies Home Medications Medication Instructions Recorded Confirmed Type ARIPiprazole [Abilify] 20 mg PO QAM 06/15/16 08/31/18 History Medroxyprogesterone Acetate 150 mg SQ Q90D 06/15/16 08/31/18 History [Depo-Provera] hydrOXYzine PAMOATE [Vistaril] 50 mg PO TID 06/20/16 08/31/18 History lamoTRIgine [LaMICtal] 200 mg PO HS 08/16/16 08/31/18 History Escitalopram Oxalate 20 mg PO DAILY 09/09/16 08/31/18 History chlorproMAZINE [Thorazine] 100 mg PO HS 01/25/18 08/31/18 History Apixaban [Eliquis] 5 mg PO BID #60 tab 08/31/18 08/31/18 Rx Apixaban [Eliquis] 10 mg PO BID 6 Days #12 tab 08/31/18 08/31/18 Rx Allergies Allergy/AdvReac Type Severity Reaction Status Date / Time venom-honey bee Allergy Swelling, Verified 08/31/18 20:52 [bee venom (honey bee)] difficulty breathing \ Current Visit: Yes Status: Acute Hospital Course: Plan: This is a 23-year-old single female who is admitted formal voluntary after a severe overdose due to impulsive reasons. She's been off her medicines for almost 18 months. She will be on 15 minute checks and usual moody milieu therapy protocol. She'll be evaluated by medicine, psychiatry, nursing staff, social work and occupational therapy. She will be expected to go to groups and integrate in moody milieu therapeutic environment in a positive manner whereby she'll be taking her medications. She will be started on Lamictal 50 mg by mouth daily at bedtime, Abilify 5 mg by mouth daily at bedtime and Lexapro 20 mg by mouth daily. 09/02/2018: She is maintained on 15 minute checks and usual moody milieu therapeutic protocol. Patient is continued to be evaluated by medicine and remains on her medical medications. Her Lexapro dose was well tolerated as well as Abilify 5 mg by mouth daily at bedtime and will increase her Lamictal to 100 mg 2 daily at bedtime today. She is neatly dressed and appropriately groomed and active within the moody milieu therapeutic environment. Mental status examination data at discharge: The patient presents alert, pleasant, and cooperative. There calmly seated without any agitated behavior. [She] reports that [her] mood is good. Affect is congruent and euthymic. [She deny having any suicidal or homicidal ideation intent or plan. [She] denies any auditory or visual hallucinations. There is no evidence of any delusional thought content. [Her] thought process is linear and goal-directed. [Her] speech is fluent and nonpressured. [Her] memory and concentration is grossly intact for the purposes of this session. Discharge medications as follows which are sent to [facility] in [place] Discharge Medication List ARIPiprazole [Abilify] 5 mg PO DAILY 30 Days #30 tab 09/04/18 [Rx] Apixaban [Eliquis] 5 mg PO BID 30 Days #60 tab 09/04/18 [Rx] Apixaban [Eliquis] 10 mg PO BID 30 Days #60 tab 09/04/18 [Rx] Benzonatate [Tessalon Perles] 200 mg PO TID PRN 10 Days #30 cap 09/04/18 [Rx] Escitalopram [Lexapro] 20 mg PO DAILY 30 Days #30 tab 09/04/18 [Rx] lamoTRIgine [LaMICtal] 200 mg PO 2100 30 Days #60 tab 09/04/18 [Rx] Patient Condition at Discharge: Stable Plan - Discharge Summary Discharge Rx Participant: Yes New Discharge Prescriptions: New Apixaban [Eliquis] 5 mg PO BID 30 Days #60 tab Apixaban [Eliquis] 10 mg PO BID 30 Days #60 tab ARIPiprazole [Abilify] 5 mg PO DAILY 30 Days #30 tab Benzonatate [Tessalon Perles] 200 mg PO TID PRN 10 Days #30 cap PRN Reason: Cough Escitalopram [Lexapro] 20 mg PO DAILY 30 Days #30 tab lamoTRIgine [LaMICtal] 200 mg PO 2100 30 Days #60 tab Discontinued ARIPiprazole [Abilify] 20 mg PO QAM Medroxyprogesterone Acetate [Depo-Provera] 150 mg SQ Q90D hydrOXYzine PAMOATE [Vistaril] 50 mg PO TID lamoTRIgine [LaMICtal] 200 mg PO HS Escitalopram Oxalate 20 mg PO DAILY chlorproMAZINE [Thorazine] 100 mg PO HS Apixaban [Eliquis] 10 mg PO BID 6 Days #12 tab Apixaban [Eliquis] 5 mg PO BID #60 tab Discharge Medication List ARIPiprazole [Abilify] 5 mg PO DAILY 30 Days #30 tab 09/04/18 [Rx] Apixaban [Eliquis] 5 mg PO BID 30 Days #60 tab 09/04/18 [Rx] Apixaban [Eliquis] 10 mg PO BID 30 Days #60 tab 09/04/18 [Rx] Benzonatate [Tessalon Perles] 200 mg PO TID PRN 10 Days #30 cap 09/04/18 [Rx] Escitalopram [Lexapro] 20 mg PO DAILY 30 Days #30 tab 09/04/18 [Rx] lamoTRIgine [LaMICtal] 200 mg PO 2100 30 Days #60 tab 09/04/18 [Rx] Follow up Appointment(s)/Referral(s): intake, intake [Other] - 09/10/18 1:00 pm (Appointment with [facility]) Activity/Diet/Wound Care/Special Instructions: Patient to be continued on Eliquis for 6 months per medical doctor. Patient to follow up with pulmonary clinic and have an MRI performed for Mediastinal mass that is present. Discharge Disposition: HOME SELF-CARE
[2018-09-06] MEDS ORDERED: APIXABAN 5 MG TAB PO SCH ×2 (09:00)
== END 2018-09-04 13:30 | disposition home or self-care (01) | DRG 885 ==
LOC: 3MHU 19:16
PROVIDERS: ADMIT Psychiatry & Neurology Psychiatry; ATTEND Psychiatry & Neurology Psychiatry
DX: F33.3 Major depressive disorder, recurrent, severe with psychotic symptoms (principal); R45.851 Suicidal ideations; F20.9 Schizophrenia, unspecified; F17.210 Nicotine dependence, cigarettes, uncomplicated; F41.9 Anxiety disorder, unspecified; Z79.899 Other long term (current) drug therapy; Z91.030 Bee allergy status; Z82.49 Family history of ischemic heart disease and other diseases of the circulatory system
CPT/HCPCS: 80061; 83036; 84443; 93005

== ENCOUNTER 2018-09-28 19:06 | Emergency (ER) | payer BC, OTHER ==
[2018-09-28 19:22] VITALS: RESP 18
[2018-09-28] MEDS ORDERED: MORPHINE SULFATE 2 MG/ML SYRINGE IVP STA (19:31)
[2018-09-28] MEDS ORDERED: SODIUM CHLORIDE 0.9% 1,000 ML IV STA (19:31)
[2018-09-28] MEDS ORDERED: IOPAMIDOL-300 CONTRAST 30 ML VIAL (ORAL USE) PO PRN (19:31)
--- NOTE | 2018-09-28 19:37 | ED ---
General Adult HPI - General Chief complaint: Abdominal Pain Stated complaint: lower abdominal pain Time Seen by Provider: 09/28/18 19:24 Source: patient, RN notes reviewed, old records reviewed Mode of arrival: ambulatory Limitations: no limitations - History of Present Illness Initial comments: 23-year-old female patient past medical history of bipolar 2 disorder, pulmonary embolism, bariatric surgery, presents to ED with 1 day of right lower quadrant p ain. Patient is currently anticoagulated with warfarin for previous pulmonary embolism. Patient reports that at approximately 11 AM she began to develop a dull right lower quadrant pain, patient reports that this pain then became sharp. She currently denies all other complaints. Patient denies any nausea vomiting diarrhea, dysuria, chest pain, shortness of breath. Patient states that she is not . Patient denies any suicidal or homicidal ideations, patient states that she has not anything to hurt herself today. Systemic: Pt denies fatigue, myalgia, fever/chills, rash. Pt denies weakness, night sweats, weight loss. Neuro: Pt denies headache, visual disturbances, syncope or pre-syncope. HEENT: Pt denies ocular discharge or irritation, otalgia, rhinorrhea, pharyngitis or notable lymphadenopathy. Cardiopulmonary: Pt denies chest pain, SOB, heart palpitations, dyspnea on exert ion. Abdominal/GI: Pt denies n/v/d. : Pt denies dysuria, burning w/ urination, frequency/urgency. Denies new onset urinary or bowel incontinence. MSK: Pt denies myalgia, loss of strength or function in extremities. Neuro: Pt denies new onset weakness, paresthesias. - Related Data Home Medications Medication Instructions Recorded Confirmed Warfarin [Coumadin] 5 mg PO SUSA 09/28/18 09/28/18 Warfarin [Coumadin] 7.5 mg PO [id number] 09/28/18 09/28/18 Previous Rx's Medication Instructions Recorded ARIPiprazole [Abilify] 5 mg PO DAILY 30 Days #30 tab 09/04/18 Escitalopram [Lexapro] 20 mg PO DAILY 30 Days #30 tab 09/04/18 lamoTRIgine [LaMICtal] 200 mg PO 2100 30 Days #60 tab 09/04/18 Allergies Allergy/AdvReac Type Severity Reaction Status Date / Time venom-honey bee Allergy Swelling, Verified 09/28/18 19:51 [bee venom (honey bee)] difficulty breathing Review of Systems ROS Statement: Those systems with pertinent positive or pertinent negative responses have been documented in the HPI. ROS Other: All systems not noted in ROS Statement are negative. Past Medical History Past Medical History: No Reported History, Pulmonary Embolus (PE) Additional Past Medical History / Comment(s): Takes Metformin for weight loss, states not diabetic. History of Any Multi-Drug Resistant Organisms: None Reported Past Surgical History: Bariatric Surgery, Cholecystectomy, Orthopedic Surgery Additional Past Surgical History / Comment(s): rt ankle/foot, gastric sleeve on 09/09/16 Past Anesthesia/Blood Transfusion Reactions: No Reported Reaction Past Psychological History: Anxiety, Bipolar, Depression, Schizophrenia Smoking Status: Current every day smoker Past Alcohol Use History: None Reported Past Drug Use History: None Reported - Past Family History Father Family Medical History: Hypertension Additional Family Medical History / Comment(s): Father is alive at age 57 with history of hypertension. Mother Family Medical History: Hypertension Additional Family Medical History / Comment(s): Mother is alive at age 53 with history of hypertension. Sister(s) Additional Family Medical History / Comment(s): Patient has 3 sisters with no major medical problems. Patient has 1 brother with no major medical problems. She does not have any children. General Exam - General Exam Comments Initial Comments: Constitutional: NAD, AOX3, Pt has pleasant affect. HEENT: NC/AT, trachea midline, neck supple, no lymphadenopathy. Posterior pharynx non erythematous, without exudates. External ears appear normal, without discharge. Mucous membranes moist. Eyes PERRLA, EOM intact. There is no scleral icterus. No pallor noted. Cardiopulmonary: RRR, no murmurs, rubs or gallops, no JVD noted. Lungs CTAB in anterior and posterior giron. No peripheral edema. Abdominal exam: Abdomen soft and non-distended. Abdomen mildly tender to palpation in right lower quadrant. No other areas of abdominal tenderness. No guarding or rigidity, no rebound tenderness.. Bowel sounds active in LLQ. No hepatosplenomegaly. No ecchymosis Neuro: CN II-XII grossly intact. No nuchal rigidity. MSK: No posterior calf tenderness bilaterally, homans sign negative bilaterally. Posterior tibialis and radial pulse +2 bilaterally. Sensation intact in upper and lower extremities. Full active ROM in upper and lower extremities, 5/5 stregnth. Limitations: no limitations Course Vital Signs 09/28/18 09/28/18 19:19 21:00 Temperature 98.2 F Pulse Rate 84 66 Respiratory 18 18 Rate Blood Pressure 139/87 122/72 O2 Sat by Pulse 97 97 Oximetry Medical Decision Making - Medical Decision Making 23-year-old female patient past medical history of bipolar 2 disorder, pulmonary embolism, bariatric surgery, presents to ED with 1 day of right lower quadrant pain. Patient is currently anticoagulated with warfarin for previous pulmonary embolism. Patient reports that at approximately 11 AM she began to develop a dull right lower quadrant pain, patient reports that this pain then became sharp. She currently denies all other complaints. Patient denies any nausea vomiting diarrhea, dysuria, chest pain, shortness of breath. Patient states that she is not . Patient denies any suicidal or homicidal ideations, patient states that she has not anything to hurt herself today. Patient vital signs stable, afebrile. Physical exam displayed: Abdomen mildly tender to palpation in right lower quadrant. No other areas of abdominal tenderness. No guarding or rigidity, no rebound tenderness. No tremor scheduled noncompressive CBC, CMP. INR 1.9. UA displayed large blood, patient completing menses. CT abdomen and pelvis displayed no acute process. Patient pain improved during hospital stay. Patient discharged with close outpatient follow-up. Patient follow up with primary care provider in 1-2 days. Patient return to ER for new signs symptoms develop or if patient worsens in any way. Patient PT/INR mildly subtherapeutic 1.9. This finding was explained to patient, patient also follow- up with this with her primary care provider. Strict return precautions discussion. Patient was understanding. Case discussed with Dr. Bush. - Lab Data Result diagrams: 09/28/18 19:55 09/28/18 19:55 Lab Results 09/28/18 09/28/18 09/28/18 Range/Units 19:55 19:55 19:55 WBC 10.4 (3.8-10.6) k/uL RBC 5.03 (3.80-5.40) m/uL Hgb 14.5 (11.4-16.0) gm/dL Hct 45.3 (34.0-46.0) % MCV 90.1 (80.0-100.0) fL MCH 28.8 (25.0-35.0) pg MCHC 32.0 (31.0-37.0) g/dL RDW 13.9 (11.5-15.5) % Plt Count 357 (150-450) k/uL Neutrophils % 63 % Lymphocytes % 28 % Monocytes % 5 % Eosinophils % 2 % Basophils % 0 % Neutrophils # 6.6 (1.3-7.7) k/uL Lymphocytes # 2.9 (1.0-4.8) k/uL Monocytes # 0.5 (0-1.0) k/uL Eosinophils # 0.3 (0-0.7) k/uL Basophils # 0.0 (0-0.2) k/uL PT (9.0-12.0) sec INR (<1.2) APTT (22.0-30.0) sec Sodium 141 (137-145) mmol/L Potassium 4.3 (3.5-5.1) mmol/L Chloride 108 H (98-107) mmol/L Carbon Dioxide 25 (22-30) mmol/L Anion Gap 8 mmol/L BUN 10 (7-17) mg/dL Creatinine 0.60 (0.52-1.04) mg/dL Est GFR (CKD-EPI)AfAm >90 (>60 ml/min/1.73 sqM) Est GFR (CKD-EPI)NonAf >90 (>60 ml/min/1.73 sqM) Glucose 88 (74-99) mg/dL Plasma Lactic Acid Mike (0.7-2.0) mmol/L Calcium 9.4 (8.4-10.2) mg/dL Total Bilirubin 0.4 (0.2-1.3) mg/dL AST 13 L (14-36) U/L ALT 20 (9-52) U/L Alkaline Phosphatase 80 (38-126) U/L Total Protein 6.9 (6.3-8.2) g/dL Albumin 4.0 (3.5-5.0) g/dL Lipase 76 (23-300) U/L Urine Color Yellow Urine Appearance Cloudy H (Clear) Urine pH 6.0 (5.0-8.0) Ur Specific [place] 1.015 (1.001-1.035) Urine Protein Trace H (Negative) Urine Glucose (UA) Negative (Negative) Urine Ketones Negative (Negative) Urine Blood Large H (Negative) Urine Nitrite Negative (Negative) Urine Bilirubin Negative (Negative) Urine Urobilinogen 2.0 (<2.0) mg/dL Ur Leukocyte Esterase Negative (Negative) Urine RBC >182 H (0-5) /hpf Urine WBC 3 (0-5) /hpf Ur Squamous Epith Cells 7 H (0-4) /hpf Amorphous Sediment Rare H (None) /hpf Urine Bacteria Few H (None) /hpf Urine Mucus Many H (None) /hpf Urine HCG, Qual (Not Detectd) 09/28/18 09/28/18 09/28/18 Range/Units 19:55 19:55 19:55 WBC (3.8-10.6) k/uL RBC (3.80-5.40) m/uL Hgb (11.4-16.0) gm/dL Hct (34.0-46.0) % MCV (80.0-100.0) fL MCH (25.0-35.0) pg MCHC (31.0-37.0) g/dL RDW (11.5-15.5) % Plt Count (150-450) k/uL Neutrophils % % Lymphocytes % % Monocytes % % Eosinophils % % Basophils % % Neutrophils # (1.3-7.7) k/uL Lymphocytes # (1.0-4.8) k/uL Monocytes # (0-1.0) k/uL Eosinophils # (0-0.7) k/uL Basophils # (0-0.2) k/uL PT 18.9 H (9.0-12.0) sec INR 1.9 H (<1.2) APTT 37.4 H (22.0-30.0) sec Sodium (137-145) mmol/L Potassium (3.5-5.1) mmol/L Chloride (98-107) mmol/L Carbon Dioxide (22-30) mmol/L Anion Gap mmol/L BUN (7-17) mg/dL Creatinine (0.52-1.04) mg/dL Est GFR (CKD-EPI)AfAm (>60 ml/min/1.73 sqM) Est GFR (CKD-EPI)NonAf (>60 ml/min/1.73 sqM) Glucose (74-99) mg/dL Plasma Lactic Acid Mike 0.7 (0.7-2.0) mmol/L Calcium (8.4-10.2) mg/dL Total Bilirubin (0.2-1.3) mg/dL AST (14-36) U/L ALT (9-52) U/L Alkaline Phosphatase (38-126) U/L Total Protein (6.3-8.2) g/dL Albumin (3.5-5.0) g/dL Lipase (23-300) U/L Urine Color Urine Appearance (Clear) Urine pH (5.0-8.0) Ur Specific [place] (1.001-1.035) Urine Protein (Negative) Urine Glucose (UA) (Negative) Urine Ketones (Negative) Urine Blood (Negative) Urine Nitrite (Negative) Urine Bilirubin (Negative) Urine Urobilinogen (<2.0) mg/dL Ur Leukocyte Esterase (Negative) Urine RBC (0-5) /hpf Urine WBC (0-5) /hpf Ur Squamous Epith Cells (0-4) /hpf Amorphous Sediment (None) /hpf Urine Bacteria (None) /hpf Urine Mucus (None) /hpf Urine HCG, Qual Not Detected (Not Detectd) Disposition Clinical Impression: Abdominal pain Disposition: HOME SELF-CARE Condition: Stable Instructions (If sedation given, give patient instructions): Abdominal Pain (ED) Additional Instructions: Patient to adhere to previously discussed treatment plan and will take medicatio n(s) as directed. Patient to follow up with PCP in 1-2 days. Patient to return to ED if symptoms do not improve. Please follow-up with primary care provider tomorrow. Please return to ER if condition worsens in any way. Strict return precautions. Is patient prescribed a controlled substance at d/c from ED?: No Referrals: Antione Kaur DO [Primary Care Provider] - 1-2 days
[2018-09-28 20:17] LABS: Basophils % (A) 0 %; Eosinophils # (A) 0.3 k/uL (0-0.7); Eosinophils % (A) 2 %; HCT 45.3 % (34.0-46.0); HGB 14.5 gm/dL (11.4-16.0); Lymphocytes # (A) 2.9 k/uL (1.0-4.8); Lymphocytes % (A) 28 %; MCH 28.8 pg (25.0-35.0); MCV 90.1 fL (80.0-100.0); Mean Platelet Volume 6.7; Monocytes # (A) 0.5 k/uL (0-1.0); Monocytes % (A) 5 %; Neutrophils # (A) 6.6 k/uL (1.3-7.7); Neutrophils % (A) 63 %; Platelet Count 357 k/uL (150-450); RBC 5.03 m/uL (3.80-5.40); RDW 13.9 % (11.5-15.5); WBC 10.4 k/uL (3.8-10.6)
[2018-09-28 20:26] LABS: ALT 20 U/L (9-52); AST 13 U/L (14-36); Alkaline Phosphatase 80 U/L (38-126); Anion Gap 8 mmol/L; Blood Urea Nitrogen 10 mg/dL (7-17); Calcium 9.4 mg/dL (8.4-10.2); Carbon Dioxide 25 mmol/L (22-30); Chloride 108 mmol/L (98-107); Glucose 88 mg/dL (74-99); Lipase 76 U/L (23-300); Potassium 4.3 mmol/L (3.5-5.1); Sodium 141 mmol/L (137-145); Total Bilirubin 0.4 mg/dL (0.2-1.3); Total Protein 6.9 g/dL (6.3-8.2)
[2018-09-28 20:30] LABS: INR 1.9 (<1.2); Partial Thromboplastin Time 37.4 sec (22.0-30.0); Prothrombin Time 18.9 sec (9.0-12.0)
[2018-09-28 20:36] LABS: Amorphous Sediment,Urine Rare /hpf; Appearance,Urine Cloudy (Clear); Bacteria,Urine Few /hpf; Bilirubin,Urine Negative (Negative); Blood,Urine Large (Negative); Color,Urine Yellow; Glucose,Urine (UA) Negative (Negative); Ketones,Urine Negative (Negative); Leukocyte Esterase,Urine Negative (Negative); Mucus,Urine Many /hpf; Nitrite,Urine Negative (Negative); Protein,Urine Trace (Negative); RBC,Urine >182 /hpf (0-5); Specific Gravity,Urine 1.015 (1.001-1.035); Squamous Epithelial Cell,Urine 7 /hpf (0-4); WBC,Urine 3 /hpf (0-5)
--- NOTE | 2018-09-28 21:54 | CT ---
EXAMINATION TYPE: CT abdomen pelvis w con DATE OF EXAM: 09/28/2018 COMPARISON: 01/25/2018 HISTORY: Lower abdominal pain CT DLP: 1859.2 mGycm Automated exposure control for dose reduction was used. TECHNIQUE: Helical acquisition of images was performed from the lung bases through the pelvis. CONTRAST: Performed without Oral Contrast and with IV Contrast, patient injected with 100 mL of Isovu e 300. FINDINGS: LUNG BASES: No significant abnormality is appreciated. LIVER/GB: No significant abnormality is appreciated. PANCREAS: No significant abnormality is seen. SPLEEN: No significant abnormality is seen. ADRENALS: No significant abnormality is seen. KIDNEYS: No significant abnormality is seen. FREE AIR: No free air is visualized. RETROPERITONEAL ADENOPATHY: None visualized REPRODUCTIVE ORGANS: No significant abnormality is seen URINARY BLADDER: No significant abnormality is seen. PELVIC ADENOPATHY: None visualized. OSSEOUS STRUCTURES: No significant abnormality is seen. BOWEL: No significant abnormality is seen. OTHER: No acute vascular findings. IMPRESSION: NO ACUTE PROCESS.
[2018-09-28 22:36] VITALS: BP 139/69; PULSE 94; TEMP 97.8
== END 2018-09-28 22:52 | disposition home or self-care (01) ==
LOC: EC 19:06
DX: R10.31 Right lower quadrant pain (principal); F17.200 Nicotine dependence, unspecified, uncomplicated; Z86.711 Personal history of pulmonary embolism; Z79.01 Long term (current) use of anticoagulants; Z91.030 Bee allergy status; Z90.49 Acquired absence of other specified parts of digestive tract; Z98.84 Bariatric surgery status
CPT/HCPCS: 36415; 80053; 83605; 83690; 85025; 85610; 85730; 81001; 81025; 74177; 99284; 96374; 96361 ×3; J2270; Q9967

== ENCOUNTER 2018-10-24 08:10 | Emergency (ER) | payer BC, OTHER ==
[2018-10-24 08:13] VITALS: RESP 18; TEMP 98
--- NOTE | 2018-10-24 08:52 | ED ---
General Adult HPI - General Chief complaint: Chest Pain Stated complaint: Chest Pain Time Seen by Provider: 10/24/18 08:20 Source: patient, RN notes reviewed, old records reviewed Mode of arrival: ambulatory Limitations: no limitations - History of Present Illness Initial comments: 23-year-old female presents for evaluation of substernal chest pain. Pain began approximately 45 minutes prior to arrival. It has significantly improved over that time. She has only mild chest tightness at the time my evaluation. Patient has previous history of gastric sleeve. She does report some epigastric pain associated with her chest pain. No vomiting. No diaphoresis. No radiating pain. Patient has no history of CAD. She does have previous history of pulmonary embolism, she is currently on Coumadin. - Related Data Home Medications Medication Instructions Recorded Confirmed Warfarin [Coumadin] 5 mg PO SUSA 09/28/18 10/24/18 Warfarin [Coumadin] 7.5 mg PO MOTUWETHFR 09/28/18 10/24/18 lamoTRIgine [LaMICtal] 200 mg PO HS 10/24/18 10/24/18 Previous Rx's Medication Instructions Recorded ARIPiprazole [Abilify] 5 mg PO DAILY 30 Days #30 tab 09/04/18 Escitalopram [Lexapro] 20 mg PO DAILY 30 Days #30 tab 09/04/18 Allergies Allergy/AdvReac Type Severity Reaction Status Date / Time venom-honey bee Allergy Swelling, Verified 10/24/18 08:35 [bee venom (honey bee)] difficulty breathing Review of Systems ROS Statement: Those systems with pertinent positive or pertinent negative responses have been documented in the HPI. ROS Other: All systems not noted in ROS Statement are negative. Past Medical History Past Medical History: Pulmonary Embolus (PE) Additional Past Medical History / Comment(s): Takes Metformin for weight loss, states not diabetic. History of Any Multi-Drug Resistant Organisms: None Reported Past Surgical History: Bariatric Surgery, Cholecystectomy, Orthopedic Surgery Additional Past Surgical History / Comment(s): rt ankle/foot, gastric sleeve on 09/09/16 Past Anesthesia/Blood Transfusion Reactions: No Reported Reaction Past Psychological History: Anxiety, Bipolar, Depression, Schizophrenia Smoking Status: Current every day smoker Past Alcohol Use History: None Reported Past Drug Use History: None Reported - Past Family History Father Family Medical History: Hypertension Additional Family Medical History / Comment(s): Father is alive at age 57 with history of hypertension. Mother Family Medical History: Hypertension Additional Family Medical History / Comment(s): Mother is alive at age 53 with history of hypertension. Sister(s) Additional Family Medical History / Comment(s): Patient has 3 sisters with no major medical problems. Patient has 1 brother with no major medical problems. She does not have any children. General Exam Limitations: no limitations General appearance: alert, in no apparent distress Head exam: Present: atraumatic, normocephalic Eye exam: Present: normal appearance, PERRL ENT exam: Present: normal exam Neck exam: Present: normal inspection. Absent: tenderness, meningismus Respiratory exam: Present: normal lung sounds bilaterally. Absent: respiratory distress, wheezes Cardiovascular Exam: Present: regular rate, normal rhythm GI/Abdominal exam: Present: soft. Absent: distended, tenderness, guarding, rebound Extremities exam: Present: normal inspection, normal capillary refill. Absent: pedal edema Neurological exam: Present: alert, oriented X3, motor sensory deficit Psychiatric exam: Present: normal affect, normal mood Skin exam: Present: warm, dry, intact. Absent: cyanosis, diaphoretic Course Vital Signs 10/24/18 10/24/18 08:11 09:47 Temperature 98.0 F Pulse Rate 70 Pulse Rate [ [employer] ] Respiratory 18 Rate Blood Pressure 130/86 O2 Sat by Pulse 100 Oximetry Medical Decision Making - Medical Decision Making 23-year-old female presents for evaluation substernal chest pain. Pain resolved prior to arrival. Pain was initially sharp and then progressed to slight chest tightness. EKG shows Q wave in T-wave inversion in lead 3 similar compared to EKG in August 2018. No ST segment elevation. Chest x-rays obtained, negative for acute cardio pulmonary disease, normal heart silhouette. Patient has normal CBC, therapeutic INR, normal CMP, negative troponin. Patient reevaluated, resting comfortably, stable vitals, she has no further complaints. Patient will return with worsening or changing symptoms. - Lab Data Result diagrams: 10/24/18 08:45 10/24/18 08:45 Lab Results 10/24/18 10/24/18 10/24/18 Range/Units 08:45 08:45 08:45 WBC 9.1 (3.8-10.6) k/uL RBC 4.75 (3.80-5.40) m/uL Hgb 13.9 (11.4-16.0) gm/dL Hct 42.6 (34.0-46.0) % MCV 89.5 (80.0-100.0) fL MCH 29.1 (25.0-35.0) pg MCHC 32.6 (31.0-37.0) g/dL RDW 14.4 (11.5-15.5) % Plt Count 297 (150-450) k/uL Neutrophils % 62 % Lymphocytes % 28 % Monocytes % 4 % Eosinophils % 4 % Basophils % 0 % Neutrophils # 5.6 (1.3-7.7) k/uL Lymphocytes # 2.5 (1.0-4.8) k/uL Monocytes # 0.4 (0-1.0) k/uL Eosinophils # 0.3 (0-0.7) k/uL Basophils # 0.0 (0-0.2) k/uL PT 19.5 H (9.0-12.0) sec INR 2.0 H (<1.2) APTT 33.3 H (22.0-30.0) sec Sodium 139 (137-145) mmol/L Potassium 4.4 (3.5-5.1) mmol/L Chloride 106 (98-107) mmol/L Carbon Dioxide 28 (22-30) mmol/L Anion Gap 5 mmol/L BUN 9 (7-17) mg/dL Creatinine 0.62 (0.52-1.04) mg/dL Est GFR (CKD-EPI)AfAm >90 (>60 ml/min/1.73 sqM) Est GFR (CKD-EPI)NonAf >90 (>60 ml/min/1.73 sqM) Glucose 80 (74-99) mg/dL Calcium 9.0 (8.4-10.2) mg/dL Magnesium 1.8 (1.6-2.3) mg/dL Total Bilirubin 0.2 (0.2-1.3) mg/dL AST 15 (14-36) U/L ALT 26 (9-52) U/L Alkaline Phosphatase 69 (38-126) U/L Troponin I (0.000-0.034) ng/mL Total Protein 6.4 (6.3-8.2) g/dL Albumin 3.8 (3.5-5.0) g/dL Lipase 65 (23-300) U/L 10/24/18 Range/Units 08:45 WBC (3.8-10.6) k/uL RBC (3.80-5.40) m/uL Hgb (11.4-16.0) gm/dL Hct (34.0-46.0) % MCV (80.0-100.0) fL MCH (25.0-35.0) pg MCHC (31.0-37.0) g/dL RDW (11.5-15.5) % Plt Count (150-450) k/uL Neutrophils % % Lymphocytes % % Monocytes % % Eosinophils % % Basophils % % Neutrophils # (1.3-7.7) k/uL Lymphocytes # (1.0-4.8) k/uL Monocytes # (0-1.0) k/uL Eosinophils # (0-0.7) k/uL Basophils # (0-0.2) k/uL PT (9.0-12.0) sec INR (<1.2) APTT (22.0-30.0) sec Sodium (137-145) mmol/L Potassium (3.5-5.1) mmol/L Chloride (98-107) mmol/L Carbon Dioxide (22-30) mmol/L Anion Gap mmol/L BUN (7-17) mg/dL Creatinine (0.52-1.04) mg/dL Est GFR (CKD-EPI)AfAm (>60 ml/min/1.73 sqM) Est GFR (CKD-EPI)NonAf (>60 ml/min/1.73 sqM) Glucose (74-99) mg/dL Calcium (8.4-10.2) mg/dL Magnesium (1.6-2.3) mg/dL Total Bilirubin (0.2-1.3) mg/dL AST (14-36) U/L ALT (9-52) U/L Alkaline Phosphatase (38-126) U/L Troponin I <0.012 (0.000-0.034) ng/mL Total Protein (6.3-8.2) g/dL Albumin (3.5-5.0) g/dL Lipase (23-300) U/L Disposition Clinical Impression: Chest pain Disposition: HOME SELF-CARE Condition: Good Instructions (If sedation given, give patient instructions): Chest Pain (ED) Is patient prescribed a controlled substance at d/c from ED?: No Referrals: Antione Kaur DO [Primary Care Provider] - 1-2 days Time of Disposition: 10:38
[2018-10-24 09:28] LABS: ALT 26 U/L (9-52); AST 15 U/L (14-36); Albumin 3.8 g/dL (3.5-5.0); Alkaline Phosphatase 69 U/L (38-126); Anion Gap 5 mmol/L; Blood Urea Nitrogen 9 mg/dL (7-17); Carbon Dioxide 28 mmol/L (22-30); Chloride 106 mmol/L (98-107); Glucose 80 mg/dL (74-99); Lipase 65 U/L (23-300); Magnesium 1.8 mg/dL (1.6-2.3); Partial Thromboplastin Time 33.3 sec (22.0-30.0); Potassium 4.4 mmol/L (3.5-5.1); Prothrombin Time 19.5 sec (9.0-12.0); Sodium 139 mmol/L (137-145); Total Bilirubin 0.2 mg/dL (0.2-1.3); Total Protein 6.4 g/dL (6.3-8.2)
[2018-10-24 09:29] LABS: Basophils % (A) 0 %; Eosinophils # (A) 0.3 k/uL (0-0.7); Eosinophils % (A) 4 %; HCT 42.6 % (34.0-46.0); HGB 13.9 gm/dL (11.4-16.0); Lymphocytes # (A) 2.5 k/uL (1.0-4.8); Lymphocytes % (A) 28 %; MCH 29.1 pg (25.0-35.0); MCHC 32.6 g/dL (31.0-37.0); MCV 89.5 fL (80.0-100.0); Mean Platelet Volume 7.4; Monocytes # (A) 0.4 k/uL (0-1.0); Monocytes % (A) 4 %; Neutrophils # (A) 5.6 k/uL (1.3-7.7); Neutrophils % (A) 62 %; Platelet Count 297 k/uL (150-450); RBC 4.75 m/uL (3.80-5.40); RDW 14.4 % (11.5-15.5); WBC 9.1 k/uL (3.8-10.6)
--- NOTE | 2018-10-24 09:57 | XR ---
EXAMINATION TYPE: XR chest 2V DATE OF EXAM: 10/24/2018 COMPARISON: Chest x-ray and CT chest August 29, 2018 HISTORY: Chest pain, history of recent pulmonary embolism TECHNIQUE: Frontal and lateral views of the chest are obtained. FINDINGS: Low lung volumes are redemonstrated. Overlying EKG leads are again seen. There is no focal air space opacity, pleural effusion, or pneumothorax seen. The cardiac silhouette size is within nor mal limits. The osseous structures are intact. IMPRESSION: Low lung volumes redemonstrated without acute cardiopulmonary process.
[2018-10-24 10:59] VITALS: BP 121/69; PULSE 74
== END 2018-10-24 10:57 | disposition home or self-care (01) ==
LOC: EC 08:10
DX: R07.89 Other chest pain (principal); R10.13 Epigastric pain; F31.9 Bipolar disorder, unspecified; F17.200 Nicotine dependence, unspecified, uncomplicated; Z86.711 Personal history of pulmonary embolism; Z90.49 Acquired absence of other specified parts of digestive tract; Z98.84 Bariatric surgery status; Z98.890 Other specified postprocedural states; Z79.01 Long term (current) use of anticoagulants; Z79.899 Other long term (current) drug therapy; Z91.030 Bee allergy status
CPT/HCPCS: 36415; 71046; 80053; 83690; 83735; 84484; 85025; 85610; 85730; 99285

== ENCOUNTER 2018-10-24 21:12 | Emergency (ER) | payer BC, OTHER ==
[2018-10-24 21:17] VITALS: TEMP 98
[2018-10-24] MEDS ORDERED: fentaNYL (PF) 50 MCG/ML 2 ML AMP IV STA (21:33)
[2018-10-24] MEDS ORDERED: SODIUM CHLORIDE 0.9% 1,000 ML IV STA (21:33)
--- NOTE | 2018-10-24 21:37 | ED ---
Chest Pain HPI - General Chief Complaint: Chest Pain Stated Complaint: Chest Pain Time Seen by Provider: 10/24/18 21:20 Source: patient, RN notes reviewed, old records reviewed Mode of arrival: ambulatory Limitations: no limitations - History of Present Illness Initial Comments: This is a 23-year-old female history of a recent diagnosis embolism who states she had the onset this morning of sharp midsternal chest pain at times she is 10/10 currently 6/10. She is not recall doing anything he could've hurt her chest wall no heavy lifting coughing sneezing or other activities. She was seen here earlier today and her pain had resolved prior to her coming and apparently the workup that was done was negative for acute findings patient currently is on Coumadin. No cough or phlegm production fevers chills sweats or other symptoms. The patient states pain gets worse with deep breathing does not some much with movement. MD Complaint: chest pain - Related Data Home Medications Medication Instructions Recorded Confirmed Warfarin [Coumadin] 5 mg PO SUSA@1700 09/28/18 10/24/18 Warfarin [Coumadin] 7.5 mg PO MOTUWETHFR@1700 09/28/18 10/24/18 lamoTRIgine [LaMICtal] 200 mg PO HS 10/24/18 10/24/18 Previous Rx's Medication Instructions Recorded ARIPiprazole [Abilify] 5 mg PO DAILY 30 Days #30 tab 09/04/18 Escitalopram [Lexapro] 20 mg PO DAILY 30 Days #30 tab 09/04/18 predniSONE 20 mg PO BID #10 tab 10/24/18 Allergies Allergy/AdvReac Type Severity Reaction Status Date / Time venom-honey bee Allergy Swelling, Verified 10/24/18 21:24 [bee venom (honey bee)] difficulty breathing Review of Systems ROS Statement: Those systems with pertinent positive or pertinent negative responses have been documented in the HPI. ROS Other: All systems not noted in ROS Statement are negative. EKG Findings - EKG Results: EKG: interpreted by CALISTA MENDOZAL, sinus rhythm, normal axis, normal QRS, normal ST/T, no acute changes (EKG shows normal sinus rhythm of 80. Interval 1:30 H holiness 80 QT since QTC 362/[address]-T wave changes) Past Medical History Past Medical History: Pulmonary Embolus (PE) Additional Past Medical History / Comment(s): Takes Metformin for weight loss, states not diabetic. History of Any Multi-Drug Resistant Organisms: None Reported Past Surgical History: Bariatric Surgery, Cholecystectomy, Orthopedic Surgery Additional Past Surgical History / Comment(s): rt ankle/foot, gastric sleeve on 09/09/16 Past Anesthesia/Blood Transfusion Reactions: No Reported Reaction Past Psychological History: Anxiety, Bipolar, Depression, Schizophrenia Smoking Status: Current every day smoker Past Alcohol Use History: None Reported Past Drug Use History: None Reported - Past Family History Father Family Medical History: Hypertension Additional Family Medical History / Comment(s): Father is alive at age 57 with history of hypertension. Mother Family Medical History: Hypertension Additional Family Medical History / Comment(s): Mother is alive at age 53 with history of hypertension. Sister(s) Additional Family Medical History / Comment(s): Patient has 3 sisters with no major medical problems. Patient has 1 brother with no major medical problems. She does not have any children. General Exam - General Exam Comments Initial Comments: Is a well-developed obese appearing female who is awake alert oriented 3 Limitations: no limitations General appearance: alert Head exam: Present: atraumatic, normocephalic, normal inspection Eye exam: Present: normal appearance, PERRL, EOMI. Absent: scleral icterus, conjunctival injection, periorbital swelling ENT exam: Present: normal exam, mucous membranes moist Neck exam: Present: normal inspection. Absent: tenderness, meningismus, lymphadenopathy Respiratory exam: Present: normal lung sounds bilaterally, chest wall tenderness (Reproducible tenderness palpation on the costal sternal costochondral margins bilaterally). Absent: respiratory distress, wheezes, rales, rhonchi, stridor Cardiovascular Exam: Present: regular rate, normal rhythm, normal heart sounds. Absent: systolic murmur, diastolic murmur, rubs, gallop, clicks GI/Abdominal exam: Present: soft, normal bowel sounds. Absent: distended, tenderness, guarding, rebound, rigid Extremities exam: Present: normal inspection, full ROM, normal capillary refill. Absent: tenderness, pedal edema, joint swelling, calf tenderness Back exam: Present: normal inspection Neurological exam: Present: alert, oriented X3, CN II-XII intact Psychiatric exam: Present: normal affect, normal mood Skin exam: Present: warm, dry, intact, normal color. Absent: rash Course Vital Signs 10/24/18 21:16 Temperature 98 F Pulse Rate 81 Respiratory 18 Rate Blood Pressure 104/65 O2 Sat by Pulse 100 Oximetry Chest Pain MDM - MDM Review the imaging and report no acute findings. Patient is feeling improved the presentation is consistent with costochondritis. Patient be discharged with appropriate medication. Her INR is slightly subtherapeutic she will be given a dose of Coumadin in the emergency department. Disposition Clinical Impression: Costalchondritis, Chest wall syndrome Disposition: HOME SELF-CARE Condition: Good Instructions (If sedation given, give patient instructions): Costochondritis (ED) Prescriptions: predniSONE 20 mg PO BID #10 tab Is patient prescribed a controlled substance at d/c from ED?: No Referrals: Antione Kaur DO [Primary Care Provider] - 1-2 days
[2018-10-24 22:03] LABS: Basophils # (A) 0.1 k/uL (0-0.2); Basophils % (A) 1 %; Eosinophils # (A) 0.3 k/uL (0-0.7); Eosinophils % (A) 4 %; HCT 43.8 % (34.0-46.0); Lymphocytes # (A) 2.7 k/uL (1.0-4.8); Lymphocytes % (A) 29 %; MCH 28.3 pg (25.0-35.0); MCV 88.6 fL (80.0-100.0); Mean Platelet Volume 6.6; Monocytes # (A) 0.4 k/uL (0-1.0); Monocytes % (A) 4 %; Neutrophils # (A) 5.6 k/uL (1.3-7.7); Neutrophils % (A) 61 %; Platelet Count 259 k/uL (150-450); RBC 4.94 m/uL (3.80-5.40); RDW 13.8 % (11.5-15.5); WBC 9.2 k/uL (3.8-10.6)
--- NOTE | 2018-10-24 22:14 | XR ---
EXAM: XR Chest, 2 Views CLINICAL HISTORY: ITS.REASON XR Reason: Chest Pain TECHNIQUE: Frontal and lateral views of the chest. COMPARISON: 10/24/18 at 0 959. FINDINGS: Lungs: No clear consolidation on exam that is limited by body habitus Pleural space: Unremarkable. No pneumothorax. Heart: Unremarkable. No cardiomegaly. Mediastinum: Unremarkable. Bones/joints: Vertebral endplate spurring. IMPRESSION: No evidence of acute pulmonary disease on technically limited study.
[2018-10-24 22:18] LABS: D-Dimer <0.17 mg/L FEU (<0.60); INR 1.9 (<1.2); Partial Thromboplastin Time 32.9 sec (22.0-30.0); Prothrombin Time 18.4 sec (9.0-12.0)
[2018-10-24 22:20] LABS: ALT 23 U/L (9-52); AST 14 U/L (14-36); Albumin 3.9 g/dL (3.5-5.0); Alkaline Phosphatase 65 U/L (38-126); Anion Gap 7 mmol/L; Blood Urea Nitrogen 10 mg/dL (7-17); Calcium 9.1 mg/dL (8.4-10.2); Carbon Dioxide 24 mmol/L (22-30); Chloride 107 mmol/L (98-107); Creatine Kinase 59 U/L (30-135); Glucose 81 mg/dL (74-99); Magnesium 1.8 mg/dL (1.6-2.3); Potassium 4.1 mmol/L (3.5-5.1); Sodium 138 mmol/L (137-145); Total Bilirubin 0.4 mg/dL (0.2-1.3); Total Protein 6.6 g/dL (6.3-8.2)
[2018-10-24] MEDS ORDERED: predniSONE 50 MG TAB PO STA (22:43)
[2018-10-24] MEDS ORDERED: WARFARIN 7.5 MG TAB PO ONE (23:00)
[2018-10-24 23:01] VITALS: BP 105/64; PULSE 69; RESP 14
== END 2018-10-24 23:08 | disposition home or self-care (01) ==
LOC: EC 21:12
DX: M94.0 Chondrocostal junction syndrome [Tietze] (principal); F31.9 Bipolar disorder, unspecified; F17.200 Nicotine dependence, unspecified, uncomplicated; Z86.711 Personal history of pulmonary embolism; Z90.49 Acquired absence of other specified parts of digestive tract; Z98.84 Bariatric surgery status; Z98.890 Other specified postprocedural states; Z79.01 Long term (current) use of anticoagulants; Z79.899 Other long term (current) drug therapy
CPT/HCPCS: 36415; 93005; 85379; 83880; 80053; 82550; 83735; 84484; 85025; 85610; 85730; 71046; 99285; 96374; 96361; J3010; J7512

== ENCOUNTER 2018-12-22 17:28 | Emergency (ER) | payer BC, OTHER ==
[2018-12-22] MEDS ORDERED: MORPHINE SULFATE 4 MG/ML SYRINGE IV STA (17:50)
[2018-12-22] MEDS ORDERED: KETOROLAC 30 MG/ML 1 ML VIAL IVP STA (17:50)
[2018-12-22] MEDS ORDERED: PANTOPRAZOLE 40 MG/10 ML VIAL IVP STA (17:50)
[2018-12-22] MEDS ORDERED: SODIUM CHLORIDE 0.9% 1,000 ML IV STA (17:50)
--- NOTE | 2018-12-22 18:09 | ED ---
Abdominal Pain HPI - General Chief Complaint: Abdominal Pain Stated Complaint: Stomach pain Time Seen by Provider: 12/22/18 17:41 Source: patient, RN notes reviewed, old records reviewed Mode of arrival: ambulatory Limitations: no limitations - History of Present Illness Initial Comments: Patient is a 23-year-old female presents emergency department today for evaluation for sharp abdominal pain for the past 2 days. She has history of gastric sleeve surgery, proximally [address] Mann. Patient states that she saw no nausea or vomiting. She denies any changes in urine or bowel habits. She states she's been having sharp abdominal pains. She is currently on Lovenox for a pulmonary embolism. She's been taking his medications as appropriate. Patient states that she has had no associated fevers or chills. Her last bowel movement was today. - Related Data Home Medications Medication Instructions Recorded Confirmed lamoTRIgine [LaMICtal] 200 mg PO HS 10/24/18 12/22/18 Enoxaparin [Lovenox] 150 mg SQ Q12H 12/22/18 12/22/18 Previous Rx's Medication Instructions Recorded ARIPiprazole [Abilify] 5 mg PO DAILY 30 Days #30 tab 09/04/18 Escitalopram [Lexapro] 20 mg PO DAILY 30 Days #30 tab 09/04/18 Famotidine [Pepcid] 20 mg PO BID #20 tablet 12/22/18 Allergies Allergy/AdvReac Type Severity Reaction Status Date / Time venom-honey bee Allergy Swelling, Verified 12/22/18 18:10 [bee venom (honey bee)] difficulty breathing Review of Systems ROS Statement: Those systems with pertinent positive or pertinent negative responses have been documented in the HPI. ROS Other: All systems not noted in ROS Statement are negative. Past Medical History Past Medical History: Pulmonary Embolus (PE) Additional Past Medical History / Comment(s): Takes Metformin for weight loss, states not diabetic. History of Any Multi-Drug Resistant Organisms: None Reported Past Surgical History: Bariatric Surgery, Cholecystectomy, Orthopedic Surgery Additional Past Surgical History / Comment(s): rt ankle/foot, gastric sleeve on 09/09/16 Past Anesthesia/Blood Transfusion Reactions: No Reported Reaction Past Psychological History: Anxiety, Bipolar, Depression, Schizophrenia Smoking Status: Current every day smoker Past Alcohol Use History: None Reported Past Drug Use History: None Reported - Past Family History Father Family Medical History: Hypertension Additional Family Medical History / Comment(s): Father is alive at age 57 with history of hypertension. Mother Family Medical History: Hypertension Additional Family Medical History / Comment(s): Mother is alive at age 53 with history of hypertension. Sister(s) Additional Family Medical History / Comment(s): Patient has 3 sisters with no major medical problems. Patient has 1 brother with no major medical problems. She does not have any children. General Exam - General Exam Comments Initial Comments: 23-year-old female. Alert and oriented. No distress. Limitations: no limitations General appearance: alert, in no apparent distress Head exam: Present: atraumatic, normocephalic, normal inspection Eye exam: Present: normal appearance, PERRL, EOMI. Absent: scleral icterus, conjunctival injection, periorbital swelling ENT exam: Present: normal exam, mucous membranes moist Neck exam: Present: normal inspection. Absent: tenderness, meningismus, lymphadenopathy Respiratory exam: Present: normal lung sounds bilaterally. Absent: respiratory distress, wheezes, rales, rhonchi, stridor Cardiovascular Exam: Present: regular rate, normal rhythm, normal heart sounds. Absent: systolic murmur, diastolic murmur, rubs, gallop, clicks GI/Abdominal exam: Present: soft, normal bowel sounds. Absent: distended, tenderness, guarding, rebound, rigid Extremities exam: Present: normal inspection, full ROM, normal capillary refill. Absent: tenderness, pedal edema, joint swelling, calf tenderness Back exam: Present: normal inspection Neurological exam: Present: alert, oriented X3, CN II-XII intact Psychiatric exam: Present: normal affect, normal mood Skin exam: Present: warm, dry, intact, normal color. Absent: rash Course Vital Signs 12/22/18 12/22/18 17:33 18:58 Temperature 98.8 F Pulse Rate 80 63 Respiratory 18 18 Rate Blood Pressure 132/92 131/72 O2 Sat by Pulse 99 95 Oximetry Medical Decision Making - Medical Decision Making 23-year-old female presents for in terms today with 3 days of diffuse abdominal pain. Patient has no significant tenderness. Patient's blood work was reviewed and unremarkable. She does have a history of gastric sleeve procedure. No vomiting no changes in stools. Patient's urinalysis negative for infection and . Patient was reevaluated and, on her phone. She appears in no distress. Patient will be discharged at this time with prescription for Pepcid for possible gastritis. Discussed strict return parameters. - Lab Data Result diagrams: 12/22/18 18:01 12/22/18 18:01 Lab Results 12/22/18 12/22/18 12/22/18 Range/Units 18:01 18:01 18:01 WBC 8.9 (3.8-10.6) k/uL RBC 5.06 (3.80-5.40) m/uL Hgb 14.5 (11.4-16.0) gm/dL Hct 45.5 (34.0-46.0) % MCV 89.9 (80.0-100.0) fL MCH 28.6 (25.0-35.0) pg MCHC 31.8 (31.0-37.0) g/dL RDW 16.0 H (11.5-15.5) % Plt Count 271 (150-450) k/uL Neutrophils % 63 % Lymphocytes % 27 % Monocytes % 4 % Eosinophils % 3 % Basophils % 1 % Neutrophils # 5.6 (1.3-7.7) k/uL Lymphocytes # 2.4 (1.0-4.8) k/uL Monocytes # 0.4 (0-1.0) k/uL Eosinophils # 0.3 (0-0.7) k/uL Basophils # 0.1 (0-0.2) k/uL PT 10.4 (9.0-12.0) sec INR 1.0 (<1.2) APTT 28.2 (22.0-30.0) sec Sodium 139 (137-145) mmol/L Potassium 4.5 (3.5-5.1) mmol/L Chloride 109 H (98-107) mmol/L Carbon Dioxide 23 (22-30) mmol/L Anion Gap 7 mmol/L BUN 7 (7-17) mg/dL Creatinine 0.59 (0.52-1.04) mg/dL Est GFR (CKD-EPI)AfAm >90 (>60 ml/min/1.73 sqM) Est GFR (CKD-EPI)NonAf >90 (>60 ml/min/1.73 sqM) Glucose 88 (74-99) mg/dL Calcium 9.1 (8.4-10.2) mg/dL Total Bilirubin 0.3 (0.2-1.3) mg/dL AST 39 H (14-36) U/L ALT 53 H (9-52) U/L Alkaline Phosphatase 73 (38-126) U/L Total Protein 6.8 (6.3-8.2) g/dL Albumin 3.9 (3.5-5.0) g/dL Amylase 35 (30-110) U/L Lipase 54 (23-300) U/L Urine Color Urine Appearance (Clear) Urine pH (5.0-8.0) Ur Specific [place] (1.001-1.035) Urine Protein (Negative) Urine Glucose (UA) (Negative) Urine Ketones (Negative) Urine Blood (Negative) Urine Nitrite (Negative) Urine Bilirubin (Negative) Urine Urobilinogen (<2.0) mg/dL Ur Leukocyte Esterase (Negative) Urine HCG, Qual (Not Detectd) 12/22/18 12/22/18 Range/Units 19:30 19:30 WBC (3.8-10.6) k/uL RBC (3.80-5.40) m/uL Hgb (11.4-16.0) gm/dL Hct (34.0-46.0) % MCV (80.0-100.0) fL MCH (25.0-35.0) pg MCHC (31.0-37.0) g/dL RDW (11.5-15.5) % Plt Count (150-450) k/uL Neutrophils % % Lymphocytes % % Monocytes % % Eosinophils % % Basophils % % Neutrophils # (1.3-7.7) k/uL Lymphocytes # (1.0-4.8) k/uL Monocytes # (0-1.0) k/uL Eosinophils # (0-0.7) k/uL Basophils # (0-0.2) k/uL PT (9.0-12.0) sec INR (<1.2) APTT (22.0-30.0) sec Sodium (137-145) mmol/L Potassium (3.5-5.1) mmol/L Chloride (98-107) mmol/L Carbon Dioxide (22-30) mmol/L Anion Gap mmol/L BUN (7-17) mg/dL Creatinine (0.52-1.04) mg/dL Est GFR (CKD-EPI)AfAm (>60 ml/min/1.73 sqM) Est GFR (CKD-EPI)NonAf (>60 ml/min/1.73 sqM) Glucose (74-99) mg/dL Calcium (8.4-10.2) mg/dL Total Bilirubin (0.2-1.3) mg/dL AST (14-36) U/L ALT (9-52) U/L Alkaline Phosphatase (38-126) U/L Total Protein (6.3-8.2) g/dL Albumin (3.5-5.0) g/dL Amylase (30-110) U/L Lipase (23-300) U/L Urine Color Yellow Urine Appearance Clear (Clear) Urine pH 6.0 (5.0-8.0) Ur Specific [place] 1.022 (1.001-1.035) Urine Protein Negative (Negative) Urine Glucose (UA) Negative (Negative) Urine Ketones Negative (Negative) Urine Blood Negative (Negative) Urine Nitrite Negative (Negative) Urine Bilirubin Negative (Negative) Urine Urobilinogen 2.0 (<2.0) mg/dL Ur Leukocyte Esterase Negative (Negative) Urine HCG, Qual Not Detected (Not Detectd) Disposition Clinical Impression: Abdominal pain Disposition: HOME SELF-CARE Condition: Good Instructions (If sedation given, give patient instructions): Abdominal Pain (ED) Additional Instructions: Follow-up with a surgeon and your primary care doctor. Return to the emergency department if any alarming signs or symptoms occur. Prescriptions: Famotidine [Pepcid] 20 mg PO BID #20 tablet Is patient prescribed a controlled substance at d/c from ED?: No Referrals: Antione Kaur DO [Primary Care Provider] - 1-2 days Time of Disposition: 20:13
[2018-12-22 18:17] LABS: Basophils # (A) 0.1 k/uL (0-0.2); Basophils % (A) 1 %; Eosinophils # (A) 0.3 k/uL (0-0.7); Eosinophils % (A) 3 %; HCT 45.5 % (34.0-46.0); HGB 14.5 gm/dL (11.4-16.0); Lymphocytes # (A) 2.4 k/uL (1.0-4.8); Lymphocytes % (A) 27 %; MCH 28.6 pg (25.0-35.0); MCHC 31.8 g/dL (31.0-37.0); MCV 89.9 fL (80.0-100.0); Mean Platelet Volume 7.4; Monocytes # (A) 0.4 k/uL (0-1.0); Monocytes % (A) 4 %; Neutrophils # (A) 5.6 k/uL (1.3-7.7); Neutrophils % (A) 63 %; Platelet Count 271 k/uL (150-450); RBC 5.06 m/uL (3.80-5.40); WBC 8.9 k/uL (3.8-10.6)
[2018-12-22 18:28] LABS: ALT 53 U/L (9-52); AST 39 U/L (14-36); African American GFR (CKD) >90 (>60 ml/min/1.73 sqM); Albumin 3.9 g/dL (3.5-5.0); Alkaline Phosphatase 73 U/L (38-126); Amylase 35 U/L (30-110); Anion Gap 7 mmol/L; Blood Urea Nitrogen 7 mg/dL (7-17); Calcium 9.1 mg/dL (8.4-10.2); Carbon Dioxide 23 mmol/L (22-30); Chloride 109 mmol/L (98-107); Glucose 88 mg/dL (74-99); Lipase 54 U/L (23-300); Potassium 4.5 mmol/L (3.5-5.1); Sodium 139 mmol/L (137-145); Total Bilirubin 0.3 mg/dL (0.2-1.3); Total Protein 6.8 g/dL (6.3-8.2)
[2018-12-22 18:43] LABS: Partial Thromboplastin Time 28.2 sec (22.0-30.0); Prothrombin Time 10.4 sec (9.0-12.0)
--- NOTE | 2018-12-22 19:34 | XR ---
EXAMINATION TYPE: XR KUB DATE OF EXAM: 12/22/2018 CLINICAL DATA: 23-year-old female post bariatric surgery, [facility] COMPARISON: 09/10/2016 upper GI FINDINGS: Lung bases are clear. Some surgical material below the GE junction. Cholecystectomy clips are also present. No evidence for free intraperitoneal air. No dilated small bowel or air-fluid levels. Scattered air is present throughout the colon extending d istally to the rectum. No suspicious calcifications seen. IMPRESSION: No evidence of bowel obstruction or free intraperitoneal air.
[2018-12-22 20:01] LABS: Appearance,Urine Clear (Clear); Bilirubin,Urine Negative (Negative); Blood,Urine Negative (Negative); Color,Urine Yellow; Glucose,Urine (UA) Negative (Negative); Ketones,Urine Negative (Negative); Leukocyte Esterase,Urine Negative (Negative); Nitrite,Urine Negative (Negative); Protein,Urine Negative (Negative); Specific Gravity,Urine 1.022 (1.001-1.035)
[2018-12-22 20:40] VITALS: BP 133/74; PULSE 58; RESP 20; TEMP 98.1
== END 2018-12-22 20:42 | disposition home or self-care (01) ==
LOC: EC 17:28
DX: R10.84 Generalized abdominal pain (principal); F31.9 Bipolar disorder, unspecified; F17.200 Nicotine dependence, unspecified, uncomplicated; Z79.01 Long term (current) use of anticoagulants; Z79.899 Other long term (current) drug therapy; Z91.030 Bee allergy status; Z86.711 Personal history of pulmonary embolism
CPT/HCPCS: 36415; 80053; 82150; 83690; 85025; 85610; 85730; 81003; 81025; 74018; 99284; 96374; 96375 ×2; 96361 ×2; J2270; J1885; C9113

== ENCOUNTER 2018-12-25 10:09 | Emergency (ER) | payer BC, OTHER ==
--- NOTE | 2018-12-25 10:58 | ED ---
Recheck HPI - General Chief Complaint: Recheck/Abnormal Lab/Rx Stated Complaint: Injection site inflammation(abdominal) Time Seen by Provider: 12/25/18 10:50 Source: patient, RN notes reviewed, old records reviewed Mode of arrival: ambulatory Limitations: no limitations - History of Present Illness Initial Comments: Patient is a 23 year old female, currently on Lovenox injection for PE. She presents with injection site reaction and erythema over her abdomen fro her lovenox injections on her abdomen. . Patient reports irritation for the past 2 days. She denies fevers. - Related Data Home Medications Medication Instructions Recorded Confirmed lamoTRIgine [LaMICtal] 200 mg PO HS 10/24/18 12/25/18 Enoxaparin [Lovenox] 150 mg SQ Q12H 12/22/18 12/25/18 ARIPiprazole [Abilify] 10 mg PO DAILY 12/25/18 12/25/18 Previous Rx's Medication Instructions Recorded Escitalopram [Lexapro] 20 mg PO DAILY 30 Days #30 tab 09/04/18 Famotidine [Pepcid] 20 mg PO BID #20 tablet 12/22/18 Cephalexin [Keflex] 500 mg PO Q6HR #28 cap 12/25/18 Allergies Allergy/AdvReac Type Severity Reaction Status Date / Time venom-honey bee Allergy Swelling, Verified 12/25/18 11:03 [bee venom (honey bee)] difficulty breathing Review of Systems ROS Statement: Those systems with pertinent positive or pertinent negative responses have been documented in the HPI. ROS Other: All systems not noted in ROS Statement are negative. Past Medical History Past Medical History: Pulmonary Embolus (PE) Additional Past Medical History / Comment(s): Takes Metformin for weight loss, states not diabetic. History of Any Multi-Drug Resistant Organisms: None Reported Past Surgical History: Bariatric Surgery, Cholecystectomy, Orthopedic Surgery Additional Past Surgical History / Comment(s): rt ankle/foot, gastric sleeve on 09/09/16 Past Anesthesia/Blood Transfusion Reactions: No Reported Reaction Past Psychological History: Anxiety, Bipolar, Depression, Schizophrenia Smoking Status: Current every day smoker Past Alcohol Use History: None Reported Past Drug Use History: None Reported - Past Family History Father Family Medical History: Hypertension Additional Family Medical History / Comment(s): Father is alive at age 57 with history of hypertension. Mother Family Medical History: Hypertension Additional Family Medical History / Comment(s): Mother is alive at age 53 with history of hypertension. Sister(s) Additional Family Medical History / Comment(s): Patient has 3 sisters with no major medical problems. Patient has 1 brother with no major medical problems. She does not have any children. General Exam - General Exam Comments Initial Comments: 23 year old female, no distress. Limitations: no limitations General appearance: alert, in no apparent distress Head exam: Present: atraumatic, normocephalic, normal inspection Eye exam: Present: normal appearance, PERRL, EOMI. Absent: scleral icterus, conjunctival injection, periorbital swelling ENT exam: Present: normal exam, mucous membranes moist Neck exam: Present: normal inspection. Absent: tenderness, meningismus, lymphadenopathy Respiratory exam: Present: normal lung sounds bilaterally. Absent: respiratory distress, wheezes, rales, rhonchi, stridor Cardiovascular Exam: Present: regular rate, normal rhythm, normal heart sounds. Absent: systolic murmur, diastolic murmur, rubs, gallop, clicks GI/Abdominal exam: Present: soft, normal bowel sounds, other (bruising over abdomen from lovenox. She has 2 areas of induration and erythema over LUQ and RLQ). Absent: distended, tenderness, guarding, rebound, rigid Course Vital Signs 19 12/25/18 10:19 11:14 Temperature 98.4 F 98 F Pulse Rate 89 80 Respiratory 16 18 Rate Blood Pressure 125/64 125/82 O2 Sat by Pulse 100 96 Oximetry Medical Decision Making - Medical Decision Making 23 year old female with history of PE and on lovenox injections presents with injection site irriation. Patient has some signs of superficial erythema over contusion sites. Discussed covering for cellulitis from injection site. Discussed avoiding using those areas for further injections. Discussed PCP follow up. Disposition Clinical Impression: Injection site reaction, Abdominal wall cellulitis Disposition: HOME SELF-CARE Condition: Good Instructions (If sedation given, give patient instructions): Cellulitis (ED) Additional Instructions: Alternate injection sites to Avoid areas of pain and tenderness. Patient should take antibiotic as prescribed. Have close follow-up with primary care doctor. Prescriptions: Cephalexin [Keflex] 500 mg PO Q6HR #28 cap Is patient prescribed a controlled substance at d/c from ED?: No Referrals: Antione Kaur DO [Primary Care Provider] - 1-2 days Time of Disposition: 10:57
[2018-12-25 11:15] VITALS: BP 125/82; PULSE 80; RESP 18; TEMP 98
== END 2018-12-25 11:14 | disposition home or self-care (01) ==
LOC: EC 10:09
DX: T80.89XA Other complications following infusion, transfusion and therapeutic injection, initial encounter (principal); L03.311 Cellulitis of abdominal wall; F31.9 Bipolar disorder, unspecified; F20.9 Schizophrenia, unspecified; F17.200 Nicotine dependence, unspecified, uncomplicated; Z86.711 Personal history of pulmonary embolism; Z79.01 Long term (current) use of anticoagulants; Z79.899 Other long term (current) drug therapy; Z91.030 Bee allergy status
CPT/HCPCS: 99283

== ENCOUNTER → 2019-02-21 | Outpatient (CLI) | payer BC, OTHER ==
--- NOTE | 2019-02-21 16:03 | US ---
EXAMINATION TYPE: US pelvis complete transvag DATE OF EXAM: 02/21/2019 COMPARISON: 10/11/2016 CLINICAL HISTORY: N93.8 abnormal uterine and vaginal bleeding. On blood thinners due to PE in x few m onths ago. Short heavy period. TECHNIQUE: Transvaginal (TV) and Transabdominal (TA) . Transabdominal sonographic images of the pel vis were acquired. Transvaginal sonographic images were medically necessary to better assess the fol lowing anatomy: Endometrium Date of LMP: 02/11/2019, G0 EXAM MEASUREMENTS: Uterus: 7.4 x 3.7 x 2.0 cm Endometrial Stripe: 0.4 cm Right Ovary: 3.8 x 1.9 x 1.4 cm Left Ovary: 6.0 x 4.5 x 4.3 cm 1. Uterus: Retroverted wnl 2. Endometrium: wnl 3. Right Ovary: wnl 4. Left Ovary: Multiple ovarian cysts are seen with the largest measuring 4.0 x 4.2 x 3.4 cm. These appear nearly anechoic with only few internal echoes. These were not seen on the prior on 10/11/2016. Spectral, color and waveform doppler imaging shows good arterial and venous flow within left ovary; there is no evidence for ovarian torsion. 5. Bilateral Adnexa: wnl 6. Posterior cul-de-sac: wnl IMPRESSION: 1. Left ovarian cysts are seen measuring up to 4.0 cm. Few internal echoes are present and these may represent resolving hemorrhagic cysts. Follow-up in 3 menstrual cycles could ensure resolution. 2. No evidence of abnormal endometrial thickening in this patient with dysfunctional uterine bleeding .
== END | disposition home or self-care (01) ==
LOC: RADUSWWP 14:16
PROVIDERS: ATTEND Family Medicine
DX: N83.202 Unspecified ovarian cyst, left side (principal)
CPT/HCPCS: 76830; 76856